=== PATIENT | female | born 1955 | race Two or more races ===

== ENCOUNTER 2018-06-03 09:19 | Emergency (ER) | payer BC, MEDICAID ==
[2018-06-03] MEDS ORDERED: KETOROLAC TROMETH 60MG/2ML VIAL IM ONE (09:45)
[2018-06-03] MEDS ORDERED: KETOROLAC TROMETH 30 MG/ML 1ML VIAL IV ONE (10:00)
[2018-06-03] MEDS ORDERED: MORPHINE SULFATE 4 MG/ML SYR/VIAL IV ONE (10:45)
[2018-06-03] MEDS ORDERED: ONDANSETRON HCL 4 MG/2 ML VIAL IV ONE (10:45)
[2018-06-03 11:42] VITALS: BP 126/78
[2018-06-03] MEDS ORDERED: traMADol HCL 50 MG TAB PO ONE (12:30)
== END 2018-06-03 13:07 | disposition home or self-care (01) ==
LOC: ER 09:19
DX: S62.101A Fracture of unspecified carpal bone, right wrist, initial encounter for closed fracture (principal); R51 Headache; E11.9 Type 2 diabetes mellitus without complications; M25.521 Pain in right elbow; M25.551 Pain in right hip; M25.511 Pain in right shoulder; Z90.710 Acquired absence of both cervix and uterus; W19.XXXA Unspecified fall, initial encounter; Y93.01 Activity, walking, marching and hiking; Y92.89 Other specified places as the place of occurrence of the external cause; Y99.8 Other external cause status
CPT/HCPCS: 29125; 70450; 73030; 73070; 73100; 73120; 96374; 96375; 99284; J1885; J2270; J2405

== ENCOUNTER 2018-06-04 17:14 | Emergency (ER) | payer BC, MEDICAID ==
[~2018-06-04] VITALS: Ht 157.5 cm; Wt 72.6 kg
[2018-06-04 17:27] VITALS: BP 148/86
[2018-06-04] MEDS ORDERED: ALUM & MAG HYDROX-SIMETH LIQ(MAALOX) 30 ML PO ONE (21:15)
[2018-06-04] MEDS ORDERED: LIDOCAINE VISCOUS 2% 15ML UD PO ONE (21:15)
[2018-06-04] MEDS ORDERED: traMADol HCL 50 MG TAB PO ONE (21:15)
[2018-06-04] MEDS ORDERED: DONNATAL 5ml ORAL Elix (BELLADONNA ALK-PHENOBARB) PO ONE (21:15)
== END 2018-06-04 22:10 | disposition home or self-care (01) ==
LOC: ER 17:14
DX: M79.601 Pain in right arm (principal); E11.9 Type 2 diabetes mellitus without complications; Z90.710 Acquired absence of both cervix and uterus; Z88.0 Allergy status to penicillin; Z88.6 Allergy status to analgesic agent; W19.XXXA Unspecified fall, initial encounter; Y93.K1 Activity, walking an animal; Y92.89 Other specified places as the place of occurrence of the external cause; Y99.8 Other external cause status

== ENCOUNTER 2018-07-26 17:30 | Emergency (ER) | payer BC, MEDICAID ==
[~2018-07-26] VITALS: Ht 157.5 cm; Wt 77.1 kg
[2018-07-26 20:15] VITALS: BP 135/69
[2018-07-26] MEDS ORDERED: ONDANSETRON ODT 4 MG TAB PO ONE (20:15)
[2018-07-26] MEDS ORDERED: MEPERIDINE HCL (50 MG/ML) 1 ML VIAL IM ONE (20:15)
[2018-07-26] MEDS ORDERED: cefTRIAXone SOD 1,000 MG VL IM ONE (20:15)
[2018-07-26] MEDS ORDERED: LIDOCAINE 1% HCL (LOCAL ANESTH.) INJ 20ML MDV ONE (20:36)
[2018-07-26 20:58] LABS: Alcohol, Urine < 3.0 mg/dL (0-5); Amphetamine Screen, Urine NEGATIVE (NEGATIVE); Barbiturate Scree,Urine NEGATIVE (NEGATIVE); Benzodiazephine Screen, Urine NEGATIVE (NEGATIVE); Cannabinoid Screen, Urine POSITIVE (NEGATIVE); Cocaine Screen, Urine NEGATIVE (NEGATIVE); Opiate Scree,Urine NEGATIVE (NEGATIVE); Phencyclidine Screen, Urine NEGATIVE (NEGATIVE)
[2018-07-26] MEDS ORDERED: LORazepam 0.5 MG TAB PO ONE (21:30)
[2018-07-26] MEDS ORDERED: SULFAMETHOX W/TRIMETH(800/160MG) DS TAB PO ONE (23:00)
[2018-07-26] MEDS ORDERED: CEPHALEXIN 250 MG CAP PO ONE (23:00)
== END 2018-07-26 23:34 | disposition home or self-care (01) ==
LOC: ER 17:30
DX: S52.121A Displaced fracture of head of right radius, initial encounter for closed fracture (principal); M21.961 Unspecified acquired deformity of right lower leg; M25.421 Effusion, right elbow; E11.9 Type 2 diabetes mellitus without complications; Z88.5 Allergy status to narcotic agent; Z88.8 Allergy status to other drugs, medicaments and biological substances; Z88.0 Allergy status to penicillin; Z90.710 Acquired absence of both cervix and uterus; W01.0XXA Fall on same level from slipping, tripping and stumbling without subsequent striking against object, initial encounter; Y93.89 Activity, other specified; Y99.8 Other external cause status; Y92.89 Other specified places as the place of occurrence of the external cause
CPT/HCPCS: 29105; 29515; 73090; 73200; 73610; 80307; 82962; 96372; 99284; J0696; J2001; J2175; Q0162

== ENCOUNTER 2019-06-27 15:54 | Emergency (ER) | payer MEDICARE, MEDICAID ==
[~2019-06-27] VITALS: Ht 157.5 cm; Wt 81.6 kg
[2019-06-27] MEDS ORDERED: SODIUM CHLORIDE 0.9% 1,000 ML IV ONE ×2 (16:27)
[2019-06-27 16:48] LABS: Basophils # (auto) 0.1 uL; Basophils % (auto) 1.4 % (0.0-2.0); Eosinophils # (auto) 0 uL; Eosinophils % (auto) 0.1 % (0.0-7.0); Hematocrit 46.2 % (36.0-46.0); Hemoglobin 15.5 g/dL (12.2-16.2); Lymphocytes % (auto) 10.1 % (10.0-50.0); Mean Corpuscular Hemoglobin 28.3 pg (28.0-32.0); Mean Corpuscular Hgb Conc. 33.6 g/dL (32.0-36.0); Mean Corpuscular Volume 84.1 fL (80.0-100.0); Monocytes # (auto) 0.6 uL; Monocytes % (auto) 5.6 % (0.0-12.0); Neutrophils # (auto) 8.4 uL; Neutrophils % (auto) 82.8 % (37.0-80.0); Nucleated Red Blood Cells % 0.1 %; Platelet Count (auto) 244 10^3/uL (140-450); Red Blood Cells 5.49 10^6/uL (4.0-5.20); Red Cell Distribution Width 14.7 % (11.8-14.3); White Blood Cell 10.2 10^3/uL (4.4-10.8)
[2019-06-27 17:01] LABS: Albumin 3.9 g/dL (3.4-5.0); BUN/Creatinine Ratio 17.4; Calcium 8.6 mg/dL (8.5-10.1)
[2019-06-27 17:02] LABS: Bilirubin, Total 0.3 mg/dL (0.2-1.0); Total Protein 7.5 g/dL (6.4-8.2)
[2019-06-27] MEDS ORDERED: InsuLIN REG 1unit/0.01ml Soln (100units/ml) IV ONE (17:45)
[2019-06-27 18:26] VITALS: BP 146/81
[2019-06-27] MEDS ORDERED: IBUPROFEN 800 MG TAB PO ONE (18:45)
[2019-06-27] MEDS ORDERED: KETOROLAC TROMETH 30 MG/ML 1ML VIAL IV ONE (19:30)
== END 2019-06-27 19:50 | disposition home or self-care (01) ==
LOC: ER 15:54
DX: E11.65 Type 2 diabetes mellitus with hyperglycemia (principal); M32.9 Systemic lupus erythematosus, unspecified; Z88.5 Allergy status to narcotic agent; Z88.0 Allergy status to penicillin; Z88.8 Allergy status to other drugs, medicaments and biological substances
CPT/HCPCS: 36415; 71046; 80053; 82962; 84484; 85025; 96361; 96374; 96375; 99284; J1815; J1885; J7030

== ENCOUNTER 2019-08-25 19:51 | Emergency (ER) | payer MEDICARE, MEDICAID ==
[~2019-08-25] VITALS: Ht 157.5 cm; Wt 81.6 kg
[2019-08-25 19:56] VITALS: BP 134/71
[2019-08-25] MEDS ORDERED: ACETAMINOPHEN 325 MG TAB PO ONE (20:30)
[2019-08-25 21:22] LABS: Basophils # (auto) 0 10 ^3/uL (0-0.2); Basophils % (auto) 0.5 % (0.0-2.0); Eosinophils # (auto) 0 10 ^3/uL (0-0.8); Eosinophils % (auto) 0.1 % (0.0-7.0); Hematocrit 41.2 % (36.0-46.0); Hemoglobin 14.4 g/dL (12.2-16.2); Lymphocytes # (auto) 0.7 10 ^3/uL (0.4-5.4); Lymphocytes % (auto) 9.5 % (10.0-50.0); Mean Corpuscular Hemoglobin 28.6 pg (28.0-32.0); Mean Corpuscular Hgb Conc. 34.9 g/dL (32.0-36.0); Monocytes # (auto) 0.4 10 ^3/uL (0-1.3); Monocytes % (auto) 5.7 % (0.0-12.0); Neutrophils # (auto) 6.5 10 ^3/uL (1.6-8.6); Neutrophils % (auto) 84.2 % (37.0-80.0); Platelet Count (auto) 251 10^3/uL (140-450); Red Blood Cells 5.02 10^6/uL (4.0-5.20); Red Cell Distribution Width 14.6 % (11.8-14.3); White Blood Cell 7.7 10^3/uL (4.4-10.8)
[2019-08-25 21:27] LABS: Urine Blood Negative /uL (Negative); Urine Hyaline Cast FEW /lpf (0 - 2); Urine Mucus FEW (None Seen); Urine Specific Gravity 1.041 (1.001-1.035); Urine WBC 4 /hpf (0 - 5)
[2019-08-25 21:34] LABS: Urine Bacteria MOD /hpf (None Seen)
[2019-08-25 21:39] LABS: Albumin 3.6 g/dL (3.4-5.0); Calcium 8.3 mg/dL (8.5-10.1); Potassium 4.4 mmol/L (3.5-5.1)
[2019-08-25 21:42] LABS: BUN/Creatinine Ratio 14.4; Bilirubin, Total 0.2 mg/dL (0.2-1.0); Total Protein 6.8 g/dL (6.4-8.2)
== END 2019-08-25 22:36 | disposition left against medical advice (07) ==
LOC: ER 19:55
DX: L93.0 Discoid lupus erythematosus (principal); Z53.21 Procedure and treatment not carried out due to patient leaving prior to being seen by health care provider
CPT/HCPCS: 36415; 80053; 81001; 82962; 85025

== ENCOUNTER 2020-05-24 11:13 | Inpatient (IN) | payer MEDICARE, MEDICAID ==
[~2020-05-24] VITALS: Ht 157.5 cm; Wt 82.2 kg
[2020-05-24] MEDS ORDERED: SODIUM CHLORIDE 0.9% 1,000 ML IVB ONE (12:45)
[2020-05-24] MEDS ORDERED: cefTRIAXone 1GM/50ML D5W 50 ML IV ONE (12:45)
[2020-05-24 13:14] LABS: Basophils # (auto) 0.1 10 ^3/uL (0-0.2); Basophils % (auto) 0.8 % (0.0-2.0); Eosinophils # (auto) 0.1 10 ^3/uL (0-0.8); Eosinophils % (auto) 1.2 % (0.0-7.0); Hematocrit 46.4 % (36.0-46.0); Hemoglobin 15.7 g/dL (12.2-16.2); Lymphocytes # (auto) 1.5 10 ^3/uL (0.4-5.4); Lymphocytes % (auto) 15.2 % (10.0-50.0); Mean Corpuscular Hemoglobin 28.5 pg (28.0-32.0); Mean Corpuscular Hgb Conc. 33.8 g/dL (32.0-36.0); Mean Corpuscular Volume 84.2 fL (80.0-100.0); Monocytes # (auto) 0.9 10 ^3/uL (0-1.3); Neutrophils % (auto) 73.8 % (37.0-80.0); Platelet Count (auto) 218 10^3/uL (140-450); White Blood Cell 9.6 10^3/uL (4.4-10.8)
[2020-05-24] MEDS ORDERED: TETANUS-DIPTH-ACEL PERTUSSIS 0.5ML SYR Tdap IM ONE (13:15)
[2020-05-24 13:30] LABS: INR 0.94 (0.9-1.15); Partial Thromboplastin Time 26.5 sec (23.0-31.2)
[2020-05-24 13:32] LABS: Albumin 3.5 g/dL (3.4-5.0); BUN/Creatinine Ratio 26.5; Calcium 8.4 mg/dL (8.5-10.1); Potassium 3.8 mmol/L (3.5-5.1)
[2020-05-24 13:34] LABS: Bilirubin, Total 0.2 mg/dL (0.2-1.0); Total Protein 6.7 g/dL (6.4-8.2)
[2020-05-24] MEDS ORDERED: DEXTROSE (50%) 50ML SYRG IV PRN (14:45)
[2020-05-24] MEDS ORDERED: LACTULOSE 20Gm/30ML SOLN PO PRN (14:45)
[2020-05-24] MEDS ORDERED: ACETAMINOPHEN 500 MG TAB PO PRN (14:45)
[2020-05-24] MEDS ORDERED: levoFLOXacin 500MG 100 ML IV ONE (14:45)
[2020-05-24] MEDS ORDERED: VANCOMYCIN 1GM/250ML 250 ML IV ONE (14:45)
[2020-05-24] MEDS ORDERED: ALBUTEROL SULF 2.5 MG/0.5ML(0.5%) NEB SOLN NEB PRN (14:45)
[2020-05-24] MEDS ORDERED: VANCOMYCIN PER PHARMACY 0 MG IV SCH (14:45)
[2020-05-24] MEDS: SODIUM CHLORIDE 0.9% 1,000 ML IV SCH (14:57)
[2020-05-24] MEDS: InsuLIN REG 1unit/0.01ml Soln (100units/ml) SC SCH ×2 (17:00→22:21)
[2020-05-24] MEDS: ALBUTEROL SULF 2.5 MG/0.5ML(0.5%) NEB SOLN NEB SCH (18:00)
[2020-05-24] MEDS: IPRATROPIUM BROM 0.5 MG/2.5ML INH SOL NEB SCH (18:00)
[2020-05-24] MEDS: MORPHINE SULFATE 4 MG/ML SYR/VIAL IV PRN ×2 (18:05→22:24)
[2020-05-24] MEDS: ACCU-CHEK COMFORT CURVE STRIP VI SCH ×2 (18:05→22:12)
[2020-05-24] MEDS: VANCOMYCIN 1GM/250ML 250 ML IV SCH (18:51)
[2020-05-25] MEDS ORDERED: ONDANSETRON ODT 4 MG TAB PO ONE (00:15)
--- NOTE | 2020-05-25 03:08 | NUR ---
MS admit from ER VIVIANASHEA admitted to tele/MS after SBAR received. Patient oriented to LAZARA HARRIS RN primary RN, unit, room, bed, and unit policies regarding patient care and visiting hours. Patient weighed by bedscale and encouraged to call if they need something. All questions and concerns addressed, patient verbalized understanding. Note:
[2020-05-25] MEDS: MORPHINE SULFATE 4 MG/ML SYR/VIAL IV PRN ×4 (03:42→22:01)
--- NOTE | 2020-05-25 05:03 | NUR ---
Alfonso hospitalist patient is complaining of tight chest pain. 01/26 for pain score. EKG taken and vital signs are bp 140/77, hr 58, 94 % on RA, Temp. 98.5. waiting for call back.
[2020-05-25] MEDS ORDERED: NITROGLYCERIN 0.4 MG SL TAB SL PRN (05:30)
[2020-05-25] MEDS ORDERED: MORPHINE SULFATE 4 MG/ML SYR/VIAL IV PRN (05:30)
--- NOTE | 2020-05-25 05:30 | NUR ---
IV removal IV DC'd with clean sterile technique, catheter fully intact. Pressure dressing applied to site. Patient tolerated well. NOTE:
[2020-05-25] MEDS: SODIUM CHLORIDE 0.9% 1,000 ML IV SCH ×3 (05:34→20:45)
--- NOTE | 2020-05-25 05:36 | NUR ---
obtained an Chest pain protocol order from hospitalist. placed patient on tele box number [id number].
--- NOTE | 2020-05-25 05:38 | NUR ---
IV insertion IV access obtained, via clean sterile technique by inserting gauge catheter at 22g left forearm after attempt(s). IV secured properly. No trauma to site. Patient tolerated well. NOTE:
[2020-05-25] MEDS ORDERED: PHE100C PO (06:06)
[2020-05-25] MEDS: VANCOMYCIN 1GM/250ML 250 ML IV SCH ×2 (06:28→17:06)
[2020-05-25] MEDS: InsuLIN REG 1unit/0.01ml Soln (100units/ml) SC SCH ×4 (06:29→22:02)
[2020-05-25] MEDS: ACCU-CHEK COMFORT CURVE STRIP VI SCH ×4 (06:29→22:01)
[2020-05-25] MEDS: ALBUTEROL SULF 2.5 MG/0.5ML(0.5%) NEB SOLN NEB SCH ×5 (06:58→23:26)
[2020-05-25] MEDS: IPRATROPIUM BROM 0.5 MG/2.5ML INH SOL NEB SCH ×5 (06:58→23:26)
--- NOTE | 2020-05-25 07:06 | NUR ---
mrsa swab sent to lab
--- NOTE | 2020-05-25 08:15 | NUR ---
Opening Shift Note Assumed care of patient, awake and alert. No S/S of distress/SOB or pain. Instructed on POC and to call for assist PRN. Bed in lowest locked position, call light within reach, side rails up x2, bed alarm on. Will continue to monitor for changes Q1hr and PRN.
[2020-05-25] MEDS: levoFLOXacin 500MG 100 ML IV SCH (08:44)
[2020-05-25 08:54] LABS: Basophils # (auto) 0 10 ^3/uL (0-0.2); Basophils % (auto) 0.6 % (0.0-2.0); Eosinophils # (auto) 0.1 10 ^3/uL (0-0.8); Eosinophils % (auto) 1.3 % (0.0-7.0); Hematocrit 43.1 % (36.0-46.0); Hemoglobin 14.1 g/dL (12.2-16.2); Lymphocytes # (auto) 1.1 10 ^3/uL (0.4-5.4); Lymphocytes % (auto) 16.7 % (10.0-50.0); Mean Corpuscular Hemoglobin 28.1 pg (28.0-32.0); Mean Corpuscular Hgb Conc. 32.8 g/dL (32.0-36.0); Mean Corpuscular Volume 85.6 fL (80.0-100.0); Monocytes # (auto) 0.7 10 ^3/uL (0-1.3); Monocytes % (auto) 10.4 % (0.0-12.0); Neutrophils # (auto) 4.6 10 ^3/uL (1.6-8.6); Nucleated Red Blood Cells % 0.1 %; Platelet Count (auto) 186 10^3/uL (140-450); Red Blood Cells 5.03 10^6/uL (4.0-5.20); Red Cell Distribution Width 14.8 % (11.8-14.3); White Blood Cell 6.5 10^3/uL (4.4-10.8)
[2020-05-25 09:00] VITALS: BP 140/71
[2020-05-25 09:12] LABS: Calcium 7.8 mg/dL (8.5-10.1); Potassium 3.7 mmol/L (3.5-5.1)
--- NOTE | 2020-05-25 12:00 | NUR ---
RECEIVED REPORT FROM MANJULA RN, PATIENT ALERT AND ORIENTED X4, NOT IN DISTRESS, CLEAR LS IN BILATERAL LUNG LOBES, RR=18, DEEP BREATHING AND BREATHING WAS ENCOURAGED, DEMONSTRATED AND VERBALIZED UNDERSTANDING, DENIED CHEST PAIN AND SOB, SR H R=62 ON TELE MONITOR, ABDOMEN SOFT AND ROUND WITH ACTIVE BS, LAST BM TODAY REPORTED, GENERAL SKIN INTACT WARM TO TOUCH, RT. UPPER EXTREMITY WEAKNESS WITH NONE PITTING EDEMA AND WRIST WOUND NOTED, RT. ELBOW SCAR AND RT. HEEL SCAB NOTED, RADIAL AND PEDAL PULSES PALPABLE, CAP REFILL <3 SECONDS, HEAD OF BED ELEVATED, BED ON LOW POSITION, RAILS UP X2, CALL LIGHT ON REACH, WILL CONTINUE MONITORING.
[2020-05-25 13:00] VITALS: BP 100/59
[2020-05-25] MEDS: HYDROcodone-ACET 5/325MG TAB PO PRN ×2 (14:05→15:07)
--- NOTE | 2020-05-25 16:00 | NUR ---
INCONTINENT, BSC PROVIDED, TOTAL REANNA CHANGE PROVIDED, AMBULATED TO BR. TOLERATED PARTIAL BODY WASH INDEPENDENTLY, TOLERATED WELL, SITTING ON BED AND SOCIALIZING WITH BED A, WILL CONTINUE MONITORING.
[2020-05-25 17:00] VITALS: BP 124/74
--- NOTE | 2020-05-25 19:22 | NUR ---
TOLERATED 100% OF PROVIDED DINNER TRAY, RESTING ON BED, NOT IN DISTRESS, REPORT WAS GIVEN TO THE SUBWAY OPERATOR RN.
--- NOTE | 2020-05-25 19:57 | NUR ---
Called patient's regarding medication of patient. He said he is going to bring the medication list in the morning. will endorse to AM nurse.
--- NOTE | 2020-05-25 21:32 | NUR ---
NO TX GIVEN AT 1900 DUE TO RT SHORT STAFFED/BUSY WITH CRITICAL PATIENTS. TX GIVEN AT THIS TIME WITHOUT INCIDENCE. NO RESP DISTRESS NOTED.
[2020-05-25 22:00] VITALS: BP 117/65
[2020-05-25] MEDS ORDERED: ONDANSETRON HCL 4 MG/2 ML VIAL IV PRN (22:30)
[2020-05-25] MEDS ORDERED: diphenhdrAMINE HCL 25 MG CAP PO PRN (22:30)
[2020-05-26] MEDS: MORPHINE SULFATE 4 MG/ML SYR/VIAL IV PRN ×2 (04:22→09:09)
[2020-05-26 05:00] VITALS: BP 91/60
--- NOTE | 2020-05-26 05:30 | NUR ---
IV removal IV DC'd with clean sterile technique, catheter fully intact. Pressure dressing applied to site. Patient tolerated well. NOTE:
[2020-05-26] MEDS: VANCOMYCIN 1GM/250ML 250 ML IV SCH (05:45)
--- NOTE | 2020-05-26 05:45 | NUR ---
IV insertion IV access obtained, via clean sterile technique by inserting 22 gauge catheter at left forearm after attempt(s). IV secured properly. No trauma to site. Patient tolerated well. NOTE:
[2020-05-26] MEDS: InsuLIN REG 1unit/0.01ml Soln (100units/ml) SC SCH ×2 (06:14→11:30)
[2020-05-26] MEDS: ACCU-CHEK COMFORT CURVE STRIP VI SCH ×2 (06:14→11:30)
[2020-05-26] MEDS: SODIUM CHLORIDE 0.9% 1,000 ML IV SCH ×2 (06:45→09:30)
[2020-05-26] MEDS: IPRATROPIUM BROM 0.5 MG/2.5ML INH SOL NEB SCH ×2 (07:07→14:14)
[2020-05-26] MEDS: ALBUTEROL SULF 2.5 MG/0.5ML(0.5%) NEB SOLN NEB SCH ×2 (07:07→14:14)
[2020-05-26 08:30] VITALS: BP 126/70
--- NOTE | 2020-05-26 08:30 | NUR ---
Opening Shift Note Received report from steward/stewardess night RN, Assumed care of patient, awake and alert. Nasal cannula set at 2L PRN at bedside, No S/S of distress/SOB. Patient complain of pain 7/10, patient given PRN morphine as ordered. Instructed on POC and to call for assist PRN, will continue to monitor for changes Q1hr and PRN.
[2020-05-26] MEDS: levoFLOXacin 500MG 100 ML IV SCH (09:08)
[2020-05-26 09:15] VITALS: BP 126/70
--- NOTE | 2020-05-26 11:00 | NUR ---
Nutrition Assessment Est energy needs 7969-1285 kcal (20-23 kcal/kg BW 82.2kg) Est protein needs 50-65g (1-1.3g/kg IBW 50kg) Will monitor and reassess prn. Addendum: 05/26/20 at [address] Amended: Links added.
--- NOTE | 2020-05-26 11:30 | NUR ---
MD DALE AT BEDSIDE PATIENT INFORMED OF POC AND DISCHARGE HOME PLAN. PATIENT VERBALIZED UNDERSTANDING.
[2020-05-26 12:30] VITALS: BP 117/80
[2020-05-26 14:24] VITALS: BP 117/80
--- NOTE | 2020-05-26 16:13 | NUR ---
Discharge instructions given as ordered. Encourage to follow up with PMD as instructed. All questions and concerns addressed. Patient verbalized understanding. IV removed with catheter intact, pressure dressing applied. Telemetry unit returned to ICU. Patient taken to vehicle via wheelchair with all personal belongings, accompanied by staff. No distress noted at time of departure.
== END 2020-05-26 16:13 | disposition home or self-care (01) | DRG 603 ==
LOC: ER 11:13 → OVERFLOW 11:14 → WEST WING 05-25 03:08 → TELE-WESTW 05-25 06:34
PROVIDERS: ADMIT Internal Medicine; ATTEND Family Medicine
DX: L03.113 Cellulitis of right upper limb (principal); S61.401A Unspecified open wound of right hand, initial encounter; E11.9 Type 2 diabetes mellitus without complications; I10 Essential (primary) hypertension; M32.9 Systemic lupus erythematosus, unspecified; E78.5 Hyperlipidemia, unspecified; Y79.1 Therapeutic (nonsurgical) and rehabilitative orthopedic devices associated with adverse incidents; Z20.828 Contact with and (suspected) exposure to other viral communicable diseases; S52.124G Nondisplaced fracture of head of right radius, subsequent encounter for closed fracture with delayed healing; Z80.0 Family history of malignant neoplasm of digestive organs; Z86.19 Personal history of other infectious and parasitic diseases; Z90.710 Acquired absence of both cervix and uterus; Z88.0 Allergy status to penicillin; Z88.5 Allergy status to narcotic agent; Z88.8 Allergy status to other drugs, medicaments and biological substances; Z90.49 Acquired absence of other specified parts of digestive tract
CPT/HCPCS: 36415; 71045; 73090; 80048; 80053; 80202; 82962; 83036; 83605; 83735; 85025; 85610; 85652; 85730; 87040; 87081; 87426; 90715; 94640; G0378; J0696; J1815; J1956; J2405; Q0162

== ENCOUNTER → 2020-06-03 | Outpatient (CLI) | payer MEDICARE, MEDICAID ==
[~2020-06-03] MED LIST: PHE100C PO
[2020-06-03 14:36] LABS: Calcium 8.8 mg/dL (8.5-10.1)
[2020-06-03 14:39] LABS: BUN/Creatinine Ratio 9.8
== END | disposition home or self-care (01) ==
LOC: LAB 13:08
PROVIDERS: ATTEND Internal Medicine
DX: E11.9 Type 2 diabetes mellitus without complications (principal); I10 Essential (primary) hypertension; E78.5 Hyperlipidemia, unspecified
CPT/HCPCS: 36415; 80048; 80061; 82043

== ENCOUNTER 2020-06-15 13:45 | Inpatient (IN) | payer MEDICARE, MEDICAID, BC ==
[~2020-06-15] VITALS: Ht 157.5 cm; Wt 70.7 kg
[2020-06-15 17:22] LABS: Basophils # (auto) 0 10 ^3/uL (0-0.2); Basophils % (auto) 0.1 % (0.0-2.0); Eosinophils # (auto) 0 10 ^3/uL (0-0.8); Hematocrit 47.7 % (36.0-46.0); Hemoglobin 16.1 g/dL (12.2-16.2); Lymphocytes # (auto) 0.6 10 ^3/uL (0.4-5.4); Lymphocytes % (auto) 9.5 % (10.0-50.0); Mean Corpuscular Hemoglobin 28.3 pg (28.0-32.0); Mean Corpuscular Hgb Conc. 33.7 g/dL (32.0-36.0); Monocytes # (auto) 0.8 10 ^3/uL (0-1.3); Monocytes % (auto) 13.5 % (0.0-12.0); Neutrophils # (auto) 4.6 10 ^3/uL (1.6-8.6); Neutrophils % (auto) 76.9 % (37.0-80.0); Nucleated Red Blood Cells % 0.1 %; Red Blood Cells 5.68 10^6/uL (4.0-5.20); Red Cell Distribution Width 14.9 % (11.8-14.3)
[2020-06-15 17:26] LABS: Albumin 3.1 g/dL (3.4-5.0); Calcium 8.2 mg/dL (8.5-10.1); Potassium 3.4 mmol/L (3.5-5.1)
[2020-06-15 17:29] LABS: BUN/Creatinine Ratio 19.2; Bilirubin, Total 0.3 mg/dL (0.2-1.0); Total Protein 7.6 g/dL (6.4-8.2)
[2020-06-15] MEDS ORDERED: NITROGLYCERIN 0.4 MG SL TAB SL PRN (21:30)
[2020-06-15] MEDS ORDERED: DEXTROSE (50%) 50ML SYRG IV PRN (21:30)
[2020-06-15] MEDS: DOXYCYCLINE 100MG/250ML 250 ML IV SCH (23:09)
[2020-06-15] MEDS: SODIUM CHLORIDE 0.9% 1,000 ML IV SCH (23:09)
[2020-06-15] MEDS: InsuLIN REG 1unit/0.01ml Soln (100units/ml) SC SCH (23:11)
[2020-06-15] MEDS: ACCU-CHEK COMFORT CURVE STRIP VI SCH (23:11)
[2020-06-15 23:36] LABS: Magnesium 2.1 mg/dL (1.6-2.6)
[2020-06-16] MEDS: ACETAMINOPHEN 500 MG TAB PO PRN (00:02)
[2020-06-16] MEDS: ONDANSETRON HCL 4 MG/2 ML VIAL IV PRN ×4 (01:15→22:54)
[2020-06-16] MEDS: TEMAZEPAM 15 MG CAP PO PRN (04:03)
[2020-06-16] MEDS: InsuLIN REG 1unit/0.01ml Soln (100units/ml) SC SCH ×4 (07:00→22:50)
[2020-06-16] MEDS: ACCU-CHEK COMFORT CURVE STRIP VI SCH ×4 (07:02→22:45)
[2020-06-16 08:32] LABS: Basophils # (auto) 0 10 ^3/uL (0-0.2); Basophils % (auto) 0.3 % (0.0-2.0); Eosinophils # (auto) 0 10 ^3/uL (0-0.8); Eosinophils % (auto) 0.1 % (0.0-7.0); Hematocrit 42.9 % (36.0-46.0); Hemoglobin 15.1 g/dL (12.2-16.2); Lymphocytes # (auto) 0.7 10 ^3/uL (0.4-5.4); Lymphocytes % (auto) 15.9 % (10.0-50.0); Mean Corpuscular Hemoglobin 28.4 pg (28.0-32.0); Mean Corpuscular Hgb Conc. 35.1 g/dL (32.0-36.0); Monocytes # (auto) 0.3 10 ^3/uL (0-1.3); Monocytes % (auto) 7.9 % (0.0-12.0); Neutrophils # (auto) 3.3 10 ^3/uL (1.6-8.6); Neutrophils % (auto) 75.8 % (37.0-80.0); Nucleated Red Blood Cells % 0.2 %; Red Cell Distribution Width 15.4 % (11.8-14.3); White Blood Cell 4.3 10^3/uL (4.4-10.8)
[2020-06-16 08:41] LABS: Albumin 2.5 g/dL (3.4-5.0); Calcium 7.2 mg/dL (8.5-10.1); Potassium 3.4 mmol/L (3.5-5.1)
[2020-06-16 08:44] LABS: BUN/Creatinine Ratio 24.6; Bilirubin, Total 0.4 mg/dL (0.2-1.0); Total Protein 6.6 g/dL (6.4-8.2)
[2020-06-16] MEDS: DOXYCYCLINE 100MG/250ML 250 ML IV SCH ×2 (09:36→22:53)
[2020-06-16] MEDS: DexAMETHasone SOD PHOS 10MG/1ML VIAL INJ IV SCH (09:36)
[2020-06-16] MEDS: ENOXAPARIN SOD 40 MG/0.4 ML SYRINGE SC SCH (09:37)
[2020-06-16] MEDS: SODIUM CHLORIDE 0.9% 1,000 ML IV SCH ×2 (09:37→15:33)
[2020-06-16] MEDS: CHOLECALCIFEROL (VITD3) 2,000 UNIT CAP/TAB PO SCH (09:37)
[2020-06-16] MEDS: ZINC SULFATE 220mg CAP or TAB PO SCH (09:37)
[2020-06-16] MEDS: PANTOPRAZOLE 40 MG TAB PO SCH (09:37)
[2020-06-16] MEDS: MORPHINE SULFATE INJECTION 2 MG/ML SYRG IV PRN ×2 (11:50→22:54)
[2020-06-16] MEDS ORDERED: REMDESIVIR PER PHARMACY 0 ML IV SCH (13:30)
[2020-06-16] MEDS ORDERED: POTASSIUM EFFERVESENT TAB 25 MEQ PO ONE (13:30)
[2020-06-16] MEDS ORDERED: REMDESIVIR 200 MG in NS 210ml LOADING DOSE ADULT IV ONE (17:00)
[2020-06-16] MEDS: GABAPENTIN 100 MG CAP PO SCH (22:54)
[2020-06-17] MEDS: guaiFENesin-DM 100/10mg/5ml SYR PO PRN ×3 (01:21→21:59)
[2020-06-17] MEDS: TEMAZEPAM 15 MG CAP PO PRN (01:59)
[2020-06-17] MEDS: ACETAMINOPHEN 500 MG TAB PO PRN (03:15)
[2020-06-17] MEDS: SODIUM CHLORIDE 0.9% 1,000 ML IV SCH (03:44)
[2020-06-17] MEDS ORDERED: PRED10TA PO (04:52)
[2020-06-17] MEDS ORDERED: LISI2.5T47 PO (04:54)
[2020-06-17] MEDS ORDERED: LORA1TAB23 PO (04:54)
[2020-06-17] MEDS ORDERED: GABA100C9 PO (04:54)
[2020-06-17] MEDS ORDERED: ALBUAER3 IN (04:54)
[2020-06-17] MEDS: GABAPENTIN 100 MG CAP PO SCH ×3 (06:00→22:00)
[2020-06-17] MEDS: ACCU-CHEK COMFORT CURVE STRIP VI SCH ×4 (06:43→22:02)
[2020-06-17] MEDS: InsuLIN REG 1unit/0.01ml Soln (100units/ml) SC SCH ×3 (06:43→17:00)
[2020-06-17] MEDS: traMADol HCL 50 MG TAB PO PRN ×2 (06:44→16:21)
[2020-06-17] MEDS: PANTOPRAZOLE 40 MG TAB PO SCH (10:48)
[2020-06-17] MEDS: PHENYTOIN SODIUM 100 MG CAP PO SCH (10:48)
[2020-06-17] MEDS: CHOLECALCIFEROL (VITD3) 2,000 UNIT CAP/TAB PO SCH (10:48)
[2020-06-17] MEDS: DexAMETHasone SOD PHOS 10MG/1ML VIAL INJ IV SCH (10:48)
[2020-06-17] MEDS: cefTRIAXone 1GM/50ML D5W 50 ML IV SCH (10:49)
[2020-06-17] MEDS: ZINC SULFATE 220mg CAP or TAB PO SCH (10:49)
[2020-06-17] MEDS: ENOXAPARIN SOD 40 MG/0.4 ML SYRINGE SC SCH (10:50)
[2020-06-17] MEDS: DOXYCYCLINE 100MG/250ML 250 ML IV SCH ×2 (11:19→22:02)
[2020-06-17] MEDS: REMDESIVIR 100 MG in SODIUM CHL 0.9% 250 ML IV SCH (16:20)
[2020-06-17 17:00] VITALS: BP 107/68
[2020-06-18] VITALS: BP 127/70
[2020-06-18] MEDS: InsuLIN REG 1unit/0.01ml Soln (100units/ml) SC SCH ×5 (00:16→21:38)
[2020-06-18] MEDS: traMADol HCL 50 MG TAB PO PRN ×2 (04:56→20:14)
[2020-06-18] MEDS: ACCU-CHEK COMFORT CURVE STRIP VI SCH ×4 (06:26→21:31)
[2020-06-18] MEDS: GABAPENTIN 100 MG CAP PO SCH ×3 (06:42→21:32)
[2020-06-18 08:00] VITALS: BP 141/74
[2020-06-18] MEDS: cefTRIAXone 1GM/50ML D5W 50 ML IV SCH (09:00)
[2020-06-18 09:31] LABS: Albumin 2.5 g/dL (3.4-5.0); Calcium 7.4 mg/dL (8.5-10.1)
[2020-06-18 09:34] LABS: BUN/Creatinine Ratio 34.2; Bilirubin, Total 0.4 mg/dL (0.2-1.0); Total Protein 6.8 g/dL (6.4-8.2)
[2020-06-18] MEDS: ENOXAPARIN SOD 40 MG/0.4 ML SYRINGE SC SCH (09:37)
[2020-06-18] MEDS: ONDANSETRON HCL 4 MG/2 ML VIAL IV PRN ×3 (09:38→20:14)
[2020-06-18] MEDS: PHENYTOIN SODIUM 100 MG CAP PO SCH (09:38)
[2020-06-18] MEDS: PANTOPRAZOLE 40 MG TAB PO SCH (09:38)
[2020-06-18] MEDS: DexAMETHasone SOD PHOS 10MG/1ML VIAL INJ IV SCH (09:38)
[2020-06-18] MEDS: DOXYCYCLINE 100MG/250ML 250 ML IV SCH ×2 (09:38→21:32)
[2020-06-18] MEDS: ACETAMINOPHEN 500 MG TAB PO PRN (09:38)
[2020-06-18] MEDS: ZINC SULFATE 220mg CAP or TAB PO SCH (09:38)
[2020-06-18] MEDS: CHOLECALCIFEROL (VITD3) 2,000 UNIT CAP/TAB PO SCH (09:39)
[2020-06-18 09:43] LABS: Basophils # (auto) 0 10 ^3/uL (0-0.2); Basophils % (auto) 0.3 % (0.0-2.0); Eosinophils # (auto) 0 10 ^3/uL (0-0.8); Hematocrit 45.9 % (36.0-46.0); Hemoglobin 16.1 g/dL (12.2-16.2); Lymphocytes # (auto) 0.7 10 ^3/uL (0.4-5.4); Lymphocytes % (auto) 11.2 % (10.0-50.0); Mean Corpuscular Hemoglobin 28.1 pg (28.0-32.0); Mean Corpuscular Hgb Conc. 35.2 g/dL (32.0-36.0); Mean Corpuscular Volume 79.8 fL (80.0-100.0); Monocytes # (auto) 0.6 10 ^3/uL (0-1.3); Monocytes % (auto) 10.6 % (0.0-12.0); Neutrophils # (auto) 4.7 10 ^3/uL (1.6-8.6); Neutrophils % (auto) 77.9 % (37.0-80.0); Nucleated Red Blood Cells % 0.5 %; Red Blood Cells 5.74 10^6/uL (4.0-5.20)
[2020-06-18 12:17] LABS: INR 1.1 (0.9-1.15); Partial Thromboplastin Time 35.8 sec (23.0-31.2)
[2020-06-18 16:00] VITALS: BP 133/67
[2020-06-18] MEDS: REMDESIVIR 100 MG in SODIUM CHL 0.9% 250 ML IV SCH (17:00)
[2020-06-18] MEDS: TEMAZEPAM 15 MG CAP PO PRN (21:32)
[2020-06-18] MEDS: guaiFENesin-DM 100/10mg/5ml SYR PO PRN (23:34)
[2020-06-19] VITALS: BP 131/70
[2020-06-19] MEDS: MORPHINE SULFATE INJECTION 2 MG/ML SYRG IV PRN ×4 (01:57→20:16)
[2020-06-19] MEDS: ONDANSETRON HCL 4 MG/2 ML VIAL IV PRN ×4 (01:57→20:16)
[2020-06-19] MEDS: GABAPENTIN 100 MG CAP PO SCH ×3 (05:54→21:05)
[2020-06-19] MEDS: ACCU-CHEK COMFORT CURVE STRIP VI SCH ×4 (06:10→21:05)
[2020-06-19] MEDS: InsuLIN REG 1unit/0.01ml Soln (100units/ml) SC SCH ×4 (06:10→21:34)
[2020-06-19 08:00] VITALS: BP 142/68
[2020-06-19] MEDS: cefTRIAXone 1GM/50ML D5W 50 ML IV SCH (10:18)
[2020-06-19] MEDS: ZINC SULFATE 220mg CAP or TAB PO SCH (10:19)
[2020-06-19] MEDS: DexAMETHasone SOD PHOS 10MG/1ML VIAL INJ IV SCH (10:19)
[2020-06-19] MEDS: DOXYCYCLINE 100MG/250ML 250 ML IV SCH ×2 (10:19→21:04)
[2020-06-19] MEDS: PHENYTOIN SODIUM 100 MG CAP PO SCH (10:19)
[2020-06-19] MEDS: PANTOPRAZOLE 40 MG TAB PO SCH (10:20)
[2020-06-19] MEDS: CHOLECALCIFEROL (VITD3) 2,000 UNIT CAP/TAB PO SCH (10:20)
[2020-06-19] MEDS: ENOXAPARIN SOD 40 MG/0.4 ML SYRINGE SC SCH (10:20)
[2020-06-19] MEDS: traMADol HCL 50 MG TAB PO PRN (10:37)
[2020-06-19 14:40] LABS: Basophils # (auto) 0 10 ^3/uL (0-0.2); Basophils % (auto) 0.1 % (0.0-2.0); Eosinophils # (auto) 0 10 ^3/uL (0-0.8); Hematocrit 46.5 % (36.0-46.0); Hemoglobin 15.9 g/dL (12.2-16.2); Lymphocytes # (auto) 0.3 10 ^3/uL (0.4-5.4); Lymphocytes % (auto) 3.5 % (10.0-50.0); Mean Corpuscular Hemoglobin 27.8 pg (28.0-32.0); Mean Corpuscular Hgb Conc. 34.3 g/dL (32.0-36.0); Mean Corpuscular Volume 81.2 fL (80.0-100.0); Monocytes # (auto) 0.9 10 ^3/uL (0-1.3); Monocytes % (auto) 9.6 % (0.0-12.0); Neutrophils # (auto) 7.7 10 ^3/uL (1.6-8.6); Neutrophils % (auto) 86.8 % (37.0-80.0); Nucleated Red Blood Cells % 0.1 %; Red Blood Cells 5.73 10^6/uL (4.0-5.20); Red Cell Distribution Width 14.9 % (11.8-14.3); White Blood Cell 8.9 10^3/uL (4.4-10.8)
[2020-06-19 14:57] LABS: Albumin 2.6 g/dL (3.4-5.0); Calcium 7.5 mg/dL (8.5-10.1); Potassium 3.9 mmol/L (3.5-5.1)
[2020-06-19 15:01] LABS: BUN/Creatinine Ratio 22.4; Bilirubin, Total 0.4 mg/dL (0.2-1.0); Total Protein 7.1 g/dL (6.4-8.2)
[2020-06-19 16:00] VITALS: BP 135/78
[2020-06-19] MEDS: ALBUTEROL SULF HFA 90MCG INH 200DOSE IN PRN ×2 (16:06→20:47)
[2020-06-19] MEDS: REMDESIVIR 100 MG in SODIUM CHL 0.9% 250 ML IV SCH (16:15)
[2020-06-19] MEDS ORDERED: SODIUM CHLORIDE 0.9% 1,000 ML IV SCH (17:30)
[2020-06-19] MEDS ORDERED: FUROSEMIDE 20 MG/2 ML VIAL IV ONE (17:30)
[2020-06-19] MEDS: ATORVASTATIN 20 MG TAB PO SCH (21:05)
[2020-06-19] MEDS: TEMAZEPAM 15 MG CAP PO PRN (21:35)
[2020-06-20] VITALS: BP 130/62
[2020-06-20] MEDS: ONDANSETRON HCL 4 MG/2 ML VIAL IV PRN ×5 (02:39→19:34)
[2020-06-20] MEDS: MORPHINE SULFATE INJECTION 2 MG/ML SYRG IV PRN ×5 (02:39→19:33)
[2020-06-20] MEDS: traMADol HCL 50 MG TAB PO PRN (04:02)
[2020-06-20] MEDS: GABAPENTIN 100 MG CAP PO SCH ×3 (06:09→22:11)
[2020-06-20] MEDS: FUROSEMIDE 20 MG/2 ML VIAL IV SCH ×2 (06:09→18:49)
[2020-06-20] MEDS: ACCU-CHEK COMFORT CURVE STRIP VI SCH ×4 (06:09→22:12)
[2020-06-20] MEDS: InsuLIN REG 1unit/0.01ml Soln (100units/ml) SC SCH ×4 (06:10→22:16)
[2020-06-20 08:00] VITALS: BP 148/75
[2020-06-20 08:41] LABS: Albumin 2.5 g/dL (3.4-5.0); BUN/Creatinine Ratio 23.6; Calcium 7.8 mg/dL (8.5-10.1); Potassium 3.5 mmol/L (3.5-5.1)
[2020-06-20 08:44] LABS: Bilirubin, Total 0.5 mg/dL (0.2-1.0); Total Protein 6.9 g/dL (6.4-8.2)
[2020-06-20] MEDS: cefTRIAXone 1GM/50ML D5W 50 ML IV SCH (09:54)
[2020-06-20] MEDS: ASPirin 81 mg TAB PO SCH (09:54)
[2020-06-20] MEDS: ZINC SULFATE 220mg CAP or TAB PO SCH (10:07)
[2020-06-20] MEDS: POTASSIUM CHL 10 Meq TABLET PO SCH (10:07)
[2020-06-20] MEDS: PANTOPRAZOLE 40 MG TAB PO SCH (10:07)
[2020-06-20] MEDS: PHENYTOIN SODIUM 100 MG CAP PO SCH (10:07)
[2020-06-20] MEDS: CHOLECALCIFEROL (VITD3) 2,000 UNIT CAP/TAB PO SCH (10:08)
[2020-06-20] MEDS: ENOXAPARIN SOD 40 MG/0.4 ML SYRINGE SC SCH (10:08)
[2020-06-20] MEDS: DOXYCYCLINE 100MG/250ML 250 ML IV SCH (11:03)
[2020-06-20] MEDS: DexAMETHasone SOD PHOS 10MG/1ML VIAL INJ IV SCH (11:03)
[2020-06-20] MEDS: REMDESIVIR 100 MG in SODIUM CHL 0.9% 250 ML IV SCH (15:32)
[2020-06-20 16:15] VITALS: BP 132/74
[2020-06-20] MEDS: guaiFENesin-DM 100/10mg/5ml SYR PO PRN (16:33)
[2020-06-20] MEDS: ATORVASTATIN 20 MG TAB PO SCH (22:11)
[2020-06-20] MEDS: TEMAZEPAM 15 MG CAP PO PRN (22:12)
[2020-06-21] VITALS: BP 129/61
[2020-06-21] MEDS: ONDANSETRON HCL 4 MG/2 ML VIAL IV PRN ×6 (02:32→23:40)
[2020-06-21] MEDS: MORPHINE SULFATE INJECTION 2 MG/ML SYRG IV PRN ×6 (02:32→23:40)
[2020-06-21] MEDS: FUROSEMIDE 20 MG/2 ML VIAL IV SCH ×2 (06:16→18:55)
[2020-06-21] MEDS: InsuLIN REG 1unit/0.01ml Soln (100units/ml) SC SCH ×4 (06:16→21:54)
[2020-06-21] MEDS: GABAPENTIN 100 MG CAP PO SCH ×3 (06:16→21:54)
[2020-06-21] MEDS: ACCU-CHEK COMFORT CURVE STRIP VI SCH ×4 (06:16→22:27)
[2020-06-21] MEDS: guaiFENesin-DM 100/10mg/5ml SYR PO PRN ×2 (06:26→21:55)
[2020-06-21] MEDS: ALBUTEROL SULF HFA 90MCG INH 200DOSE IN PRN (09:03)
[2020-06-21] MEDS: cefTRIAXone 1GM/50ML D5W 50 ML IV SCH (09:55)
[2020-06-21] MEDS: DexAMETHasone SOD PHOS 10MG/1ML VIAL INJ IV SCH (09:56)
[2020-06-21] MEDS: ASPirin 81 mg TAB PO SCH (09:56)
[2020-06-21] MEDS: ZINC SULFATE 220mg CAP or TAB PO SCH (09:56)
[2020-06-21] MEDS: PHENYTOIN SODIUM 100 MG CAP PO SCH (09:56)
[2020-06-21] MEDS: PANTOPRAZOLE 40 MG TAB PO SCH (09:57)
[2020-06-21] MEDS: CHOLECALCIFEROL (VITD3) 2,000 UNIT CAP/TAB PO SCH (09:57)
[2020-06-21] MEDS: POTASSIUM CHL 10 Meq TABLET PO SCH (09:57)
[2020-06-21] MEDS: ENOXAPARIN SOD 40 MG/0.4 ML SYRINGE SC SCH (09:57)
[2020-06-21] MEDS: ATORVASTATIN 20 MG TAB PO SCH (21:54)
[2020-06-21] MEDS: TEMAZEPAM 15 MG CAP PO PRN (21:54)
[2020-06-22] VITALS: BP 116/63
[2020-06-22] MEDS: MORPHINE SULFATE INJECTION 2 MG/ML SYRG IV PRN ×4 (05:12→18:58)
[2020-06-22] MEDS: ONDANSETRON HCL 4 MG/2 ML VIAL IV PRN ×4 (05:13→18:57)
[2020-06-22] MEDS: InsuLIN REG 1unit/0.01ml Soln (100units/ml) SC SCH ×4 (05:38→21:36)
[2020-06-22] MEDS: ACCU-CHEK COMFORT CURVE STRIP VI SCH ×4 (05:39→21:43)
[2020-06-22] MEDS: FUROSEMIDE 20 MG/2 ML VIAL IV SCH ×2 (05:59→17:10)
[2020-06-22] MEDS: GABAPENTIN 100 MG CAP PO SCH ×3 (05:59→21:42)
[2020-06-22] MEDS: ALBUTEROL SULF HFA 90MCG INH 200DOSE IN PRN ×2 (06:17→20:15)
[2020-06-22 08:00] VITALS: BP 147/78
[2020-06-22] MEDS: cefTRIAXone 1GM/50ML D5W 50 ML IV SCH (09:30)
[2020-06-22] MEDS: ASPirin 81 mg TAB PO SCH (09:36)
[2020-06-22] MEDS: ZINC SULFATE 220mg CAP or TAB PO SCH (09:37)
[2020-06-22] MEDS: PHENYTOIN SODIUM 100 MG CAP PO SCH (09:38)
[2020-06-22] MEDS: PANTOPRAZOLE 40 MG TAB PO SCH (09:39)
[2020-06-22] MEDS: POTASSIUM CHL 10 Meq TABLET PO SCH ×2 (09:39→21:42)
[2020-06-22] MEDS: DexAMETHasone SOD PHOS 10MG/1ML VIAL INJ IV SCH (09:42)
[2020-06-22] MEDS: CHOLECALCIFEROL (VITD3) 2,000 UNIT CAP/TAB PO SCH (10:00)
[2020-06-22] MEDS: ENOXAPARIN SOD 40 MG/0.4 ML SYRINGE SC SCH ×2 (10:00→21:43)
[2020-06-22] MEDS: guaiFENesin-DM 100/10mg/5ml SYR PO PRN ×2 (10:00→21:43)
[2020-06-22] MEDS ORDERED: ERGOCALCIFEROL 50,000 UNIT(1.25MG) CAP PO SCH (15:45)
[2020-06-22 16:00] VITALS: BP 145/73
[2020-06-22] MEDS ORDERED: REMDESIVIR PER PHARMACY 0 ML IV SCH (16:00)
[2020-06-22] MEDS ORDERED: REMDESIVIR 200 MG in NS 210ml LOADING DOSE ADULT IV ONE (20:00)
[2020-06-22] MEDS: TEMAZEPAM 15 MG CAP PO PRN (21:44)
[2020-06-23] VITALS: BP 137/69
[2020-06-23] MEDS: MORPHINE SULFATE INJECTION 2 MG/ML SYRG IV PRN (05:25)
[2020-06-23] MEDS: ONDANSETRON HCL 4 MG/2 ML VIAL IV PRN ×4 (05:25→22:00)
[2020-06-23] MEDS: GABAPENTIN 100 MG CAP PO SCH ×3 (05:45→22:00)
[2020-06-23] MEDS: FUROSEMIDE 20 MG/2 ML VIAL IV SCH ×2 (05:45→18:44)
[2020-06-23] MEDS: InsuLIN REG 1unit/0.01ml Soln (100units/ml) SC SCH ×4 (06:57→22:00)
[2020-06-23] MEDS: ACCU-CHEK COMFORT CURVE STRIP VI SCH ×4 (06:57→22:00)
[2020-06-23 08:00] VITALS: BP 134/86
[2020-06-23 08:06] LABS: Basophils # (auto) 0 10 ^3/uL (0-0.2); Basophils % (auto) 0.1 % (0.0-2.0); Eosinophils # (auto) 0 10 ^3/uL (0-0.8); Eosinophils % (auto) 0.2 % (0.0-7.0); Hematocrit 41.2 % (36.0-46.0); Hemoglobin 14.7 g/dL (12.2-16.2); Lymphocytes # (auto) 0.5 10 ^3/uL (0.4-5.4); Lymphocytes % (auto) 6.8 % (10.0-50.0); Mean Corpuscular Hemoglobin 28.8 pg (28.0-32.0); Mean Corpuscular Hgb Conc. 35.6 g/dL (32.0-36.0); Mean Corpuscular Volume 80.9 fL (80.0-100.0); Monocytes # (auto) 0.3 10 ^3/uL (0-1.3); Neutrophils # (auto) 7.2 10 ^3/uL (1.6-8.6); Neutrophils % (auto) 88.9 % (37.0-80.0); Nucleated Red Blood Cells % 0.3 %; Red Blood Cells 5.09 10^6/uL (4.0-5.20); Red Cell Distribution Width 14.7 % (11.8-14.3); White Blood Cell 8.1 10^3/uL (4.4-10.8)
[2020-06-23 08:14] LABS: Calcium 8.4 mg/dL (8.5-10.1); Potassium 3.6 mmol/L (3.5-5.1)
[2020-06-23 08:25] LABS: Albumin 2.2 g/dL (3.4-5.0); BUN/Creatinine Ratio 19.8; Bilirubin, Total 0.6 mg/dL (0.2-1.0); CRP High Sensitivity 9.69 mg/dL (< 0.3); Magnesium 1.5 mg/dL (1.6-2.6); Total Protein 7.8 g/dL (6.4-8.2)
[2020-06-23] MEDS: ASPirin 81 mg TAB PO SCH (10:10)
[2020-06-23] MEDS: ZINC SULFATE 220mg CAP or TAB PO SCH (10:10)
[2020-06-23] MEDS: POTASSIUM CHL 10 Meq TABLET PO SCH ×2 (10:11→22:00)
[2020-06-23] MEDS: CHOLECALCIFEROL (VITD3) 2,000 UNIT CAP/TAB PO SCH (10:11)
[2020-06-23] MEDS: PANTOPRAZOLE 40 MG TAB PO SCH (10:11)
[2020-06-23] MEDS: PHENYTOIN SODIUM 100 MG CAP PO SCH (10:11)
[2020-06-23] MEDS: cefTRIAXone 1GM/50ML D5W 50 ML IV SCH (10:12)
[2020-06-23] MEDS: ENOXAPARIN SOD 40 MG/0.4 ML SYRINGE SC SCH (10:12)
[2020-06-23] MEDS: DexAMETHasone SOD PHOS 10MG/1ML VIAL INJ IV SCH (10:12)
[2020-06-23] MEDS ORDERED: ENOXAPARIN SOD 40 MG/0.4 ML SYRINGE SC ONE (14:45)
[2020-06-23] MEDS ORDERED: REMDESIVIR 100 MG in SODIUM CHL 0.9% 250 ML IV SCH (15:00)
[2020-06-23] MEDS: MAGNESIUM SULFATE 1GM/100ML 100 ML IV SCH ×2 (15:12→17:03)
[2020-06-23 16:19] VITALS: BP 135/64
[2020-06-23] MEDS: CEFEPIME 1 GM in SODIUM CHL 0.9% 50 ML IV SCH ×2 (18:45→22:00)
[2020-06-23] MEDS: ALBUTEROL SULF HFA 90MCG INH 200DOSE IN PRN (20:22)
[2020-06-23] MEDS: ENOXAPARIN SOD 80 MG/0.8ML SYRINGE SC SCH (22:00)
[2020-06-23] MEDS: traMADol HCL 50 MG TAB PO PRN (22:00)
[2020-06-23 23:09] LABS: Urine Bacteria NONE SEEN /hpf (None Seen); Urine Blood Negative /uL (Negative); Urine Hyaline Cast FEW /lpf (0 - 2); Urine Mucus FEW (None Seen); Urine Specific Gravity 1.012 (1.001-1.035); Urine WBC 1 /hpf (0 - 5)
[2020-06-24] VITALS: BP 132/72
[2020-06-24] MEDS: MORPHINE SULFATE INJECTION 2 MG/ML SYRG IV PRN ×4 (00:19→21:48)
[2020-06-24] MEDS: ONDANSETRON HCL 4 MG/2 ML VIAL IV PRN ×3 (02:01→21:58)
[2020-06-24] MEDS: traMADol HCL 50 MG TAB PO PRN (05:00)
[2020-06-24] MEDS: FUROSEMIDE 20 MG/2 ML VIAL IV SCH (06:02)
[2020-06-24] MEDS: CEFEPIME 1 GM in SODIUM CHL 0.9% 50 ML IV SCH ×3 (06:02→21:47)
[2020-06-24] MEDS: InsuLIN REG 1unit/0.01ml Soln (100units/ml) SC SCH ×4 (06:04→21:46)
[2020-06-24] MEDS: ACCU-CHEK COMFORT CURVE STRIP VI SCH ×4 (06:05→21:47)
[2020-06-24] MEDS: GABAPENTIN 100 MG CAP PO SCH ×3 (06:11→21:47)
[2020-06-24] MEDS: ALBUTEROL SULF HFA 90MCG INH 200DOSE IN PRN ×2 (07:30→21:06)
[2020-06-24 08:00] VITALS: BP 126/75
[2020-06-24 08:26] LABS: Albumin 2.2 g/dL (3.4-5.0); Magnesium 2.1 mg/dL (1.6-2.6); Potassium 3.6 mmol/L (3.5-5.1)
[2020-06-24 08:30] LABS: BUN/Creatinine Ratio 27.4; Bilirubin, Total 0.5 mg/dL (0.2-1.0); Total Protein 7.9 g/dL (6.4-8.2)
[2020-06-24] MEDS: DexAMETHasone SOD PHOS 10MG/1ML VIAL INJ IV SCH (09:10)
[2020-06-24] MEDS: ASPirin 81 mg TAB PO SCH (09:10)
[2020-06-24] MEDS: PHENYTOIN SODIUM 100 MG CAP PO SCH (09:11)
[2020-06-24] MEDS: CHOLECALCIFEROL (VITD3) 2,000 UNIT CAP/TAB PO SCH (09:11)
[2020-06-24] MEDS: POTASSIUM CHL 10 Meq TABLET PO SCH ×2 (09:11→21:47)
[2020-06-24] MEDS: ENOXAPARIN SOD 80 MG/0.8ML SYRINGE SC SCH ×2 (09:12→21:47)
[2020-06-24] MEDS: PANTOPRAZOLE 40 MG TAB PO SCH (10:00)
[2020-06-24] MEDS: ZINC SULFATE 220mg CAP or TAB PO SCH (13:36)
[2020-06-24 16:00] VITALS: BP 140/82
[2020-06-24] MEDS: TEMAZEPAM 15 MG CAP PO PRN (21:48)
[2020-06-25] VITALS: BP 131/74
[2020-06-25] MEDS: ONDANSETRON HCL 4 MG/2 ML VIAL IV PRN ×4 (03:37→21:50)
[2020-06-25] MEDS: MORPHINE SULFATE INJECTION 2 MG/ML SYRG IV PRN ×4 (03:37→21:50)
[2020-06-25] MEDS: InsuLIN REG 1unit/0.01ml Soln (100units/ml) SC SCH ×4 (05:52→21:51)
[2020-06-25] MEDS: ACCU-CHEK COMFORT CURVE STRIP VI SCH ×4 (05:52→21:50)
[2020-06-25] MEDS: GABAPENTIN 100 MG CAP PO SCH ×3 (05:52→21:49)
[2020-06-25] MEDS: CEFEPIME 1 GM in SODIUM CHL 0.9% 50 ML IV SCH ×3 (05:53→21:49)
[2020-06-25] MEDS: ALBUTEROL SULF HFA 90MCG INH 200DOSE IN PRN ×2 (06:35→21:30)
[2020-06-25 07:49] LABS: BUN/Creatinine Ratio 29.2; Bilirubin, Total 0.5 mg/dL (0.2-1.0); Calcium 8.3 mg/dL (8.5-10.1); Potassium 4.4 mmol/L (3.5-5.1); Total Protein 7.6 g/dL (6.4-8.2)
[2020-06-25 08:00] VITALS: BP 148/94
[2020-06-25] MEDS: DexAMETHasone SOD PHOS 10MG/1ML VIAL INJ IV SCH (09:53)
[2020-06-25] MEDS: ASPirin 81 mg TAB PO SCH (09:53)
[2020-06-25] MEDS: PHENYTOIN SODIUM 100 MG CAP PO SCH (09:54)
[2020-06-25] MEDS: POTASSIUM CHL 10 Meq TABLET PO SCH ×2 (09:54→21:49)
[2020-06-25] MEDS: CHOLECALCIFEROL (VITD3) 2,000 UNIT CAP/TAB PO SCH (09:54)
[2020-06-25] MEDS: PANTOPRAZOLE 40 MG TAB PO SCH (09:54)
[2020-06-25] MEDS: ZINC SULFATE 220mg CAP or TAB PO SCH (09:54)
[2020-06-25] MEDS: ENOXAPARIN SOD 80 MG/0.8ML SYRINGE SC SCH ×2 (09:55→21:49)
[2020-06-25] MEDS: traMADol HCL 50 MG TAB PO PRN (15:02)
[2020-06-25 16:21] VITALS: BP 136/67
[2020-06-25] MEDS ORDERED: FUROSEMIDE 40 MG/4 ML VIAL IV ONE (20:00)
[2020-06-25] MEDS: guaiFENesin-DM 100/10mg/5ml SYR PO PRN (20:18)
[2020-06-25] MEDS: TEMAZEPAM 15 MG CAP PO PRN (21:51)
[2020-06-26] VITALS: BP 105/80
[2020-06-26] MEDS: ONDANSETRON HCL 4 MG/2 ML VIAL IV PRN ×5 (05:16→21:53)
[2020-06-26] MEDS: MORPHINE SULFATE INJECTION 2 MG/ML SYRG IV PRN ×5 (05:16→21:53)
[2020-06-26] MEDS: CEFEPIME 1 GM in SODIUM CHL 0.9% 50 ML IV SCH ×3 (06:05→21:53)
[2020-06-26] MEDS: InsuLIN REG 1unit/0.01ml Soln (100units/ml) SC SCH ×4 (06:06→22:35)
[2020-06-26] MEDS: GABAPENTIN 100 MG CAP PO SCH ×3 (06:06→21:54)
[2020-06-26] MEDS: ACCU-CHEK COMFORT CURVE STRIP VI SCH ×4 (06:06→21:53)
[2020-06-26] MEDS: guaiFENesin-DM 100/10mg/5ml SYR PO PRN ×2 (06:41→22:41)
[2020-06-26 08:00] VITALS: BP 141/85
[2020-06-26 08:30] LABS: Potassium 4.7 mmol/L (3.5-5.1)
[2020-06-26 08:37] LABS: BUN/Creatinine Ratio 22.7; Bilirubin, Total 0.6 mg/dL (0.2-1.0); Calcium 8.9 mg/dL (8.5-10.1); Total Protein 8.2 g/dL (6.4-8.2)
[2020-06-26] MEDS: DexAMETHasone SOD PHOS 10MG/1ML VIAL INJ IV SCH (10:26)
[2020-06-26] MEDS: ZINC SULFATE 220mg CAP or TAB PO SCH (10:27)
[2020-06-26] MEDS: FUROSEMIDE 40 MG/4 ML VIAL IV SCH (10:27)
[2020-06-26] MEDS: PHENYTOIN SODIUM 100 MG CAP PO SCH (10:27)
[2020-06-26] MEDS: ASPirin 81 mg TAB PO SCH (10:27)
[2020-06-26] MEDS: PANTOPRAZOLE 40 MG TAB PO SCH (10:28)
[2020-06-26] MEDS: ENOXAPARIN SOD 80 MG/0.8ML SYRINGE SC SCH ×2 (10:28→21:54)
[2020-06-26] MEDS: CHOLECALCIFEROL (VITD3) 2,000 UNIT CAP/TAB PO SCH (10:28)
[2020-06-26] MEDS: POTASSIUM CHL 10 Meq TABLET PO SCH ×2 (10:28→21:53)
[2020-06-26] MEDS: traMADol HCL 50 MG TAB PO PRN (13:21)
[2020-06-26 16:29] VITALS: BP 108/62
[2020-06-26] MEDS: ALBUTEROL SULF HFA 90MCG INH 200DOSE IN PRN (20:02)
[2020-06-26] MEDS: TEMAZEPAM 15 MG CAP PO PRN (22:40)
[2020-06-27] VITALS: BP 130/70
[2020-06-27] MEDS: MORPHINE SULFATE INJECTION 2 MG/ML SYRG IV PRN ×6 (04:18→22:08)
[2020-06-27] MEDS: ONDANSETRON HCL 4 MG/2 ML VIAL IV PRN ×5 (04:24→22:08)
[2020-06-27] MEDS: ACCU-CHEK COMFORT CURVE STRIP VI SCH ×4 (06:37→22:07)
[2020-06-27] MEDS: GABAPENTIN 100 MG CAP PO SCH ×3 (06:41→22:07)
[2020-06-27] MEDS: CEFEPIME 1 GM in SODIUM CHL 0.9% 50 ML IV SCH ×3 (06:41→22:06)
[2020-06-27] MEDS: InsuLIN REG 1unit/0.01ml Soln (100units/ml) SC SCH ×4 (07:00→22:00)
[2020-06-27 08:00] VITALS: BP 141/71
[2020-06-27] MEDS: PANTOPRAZOLE 40 MG TAB PO SCH (08:39)
[2020-06-27] MEDS: ZINC SULFATE 220mg CAP or TAB PO SCH (08:39)
[2020-06-27] MEDS: POTASSIUM CHL 10 Meq TABLET PO SCH ×2 (08:39→22:06)
[2020-06-27] MEDS: CHOLECALCIFEROL (VITD3) 2,000 UNIT CAP/TAB PO SCH (08:39)
[2020-06-27] MEDS: DexAMETHasone SOD PHOS 10MG/1ML VIAL INJ IV SCH (08:39)
[2020-06-27] MEDS: ASPirin 81 mg TAB PO SCH (08:40)
[2020-06-27] MEDS: ENOXAPARIN SOD 80 MG/0.8ML SYRINGE SC SCH (08:40)
[2020-06-27] MEDS: PHENYTOIN SODIUM 100 MG CAP PO SCH (08:40)
[2020-06-27] MEDS: FUROSEMIDE 40 MG/4 ML VIAL IV SCH (08:40)
[2020-06-27 09:28] LABS: BUN/Creatinine Ratio 36.5; Bilirubin, Total 0.4 mg/dL (0.2-1.0); Calcium 8.9 mg/dL (8.5-10.1); Potassium 4.9 mmol/L (3.5-5.1); Total Protein 7.7 g/dL (6.4-8.2)
[2020-06-27 16:00] VITALS: BP 135/78
[2020-06-27] MEDS: traMADol HCL 50 MG TAB PO PRN (17:10)
[2020-06-27] MEDS: guaiFENesin-DM 100/10mg/5ml SYR PO PRN (19:59)
[2020-06-27] MEDS: APIXABAN 5 MG TAB PO SCH (22:06)
[2020-06-28] VITALS: BP 155/105
[2020-06-28] MEDS: ALBUTEROL SULF HFA 90MCG INH 200DOSE IN PRN (01:11)
[2020-06-28] MEDS: ONDANSETRON HCL 4 MG/2 ML VIAL IV PRN ×4 (03:24→19:57)
[2020-06-28] MEDS: MORPHINE SULFATE INJECTION 2 MG/ML SYRG IV PRN ×4 (03:25→19:56)
[2020-06-28] MEDS: InsuLIN REG 1unit/0.01ml Soln (100units/ml) SC SCH ×4 (06:11→22:39)
[2020-06-28] MEDS: ACCU-CHEK COMFORT CURVE STRIP VI SCH ×4 (06:11→22:48)
[2020-06-28] MEDS: CEFEPIME 1 GM in SODIUM CHL 0.9% 50 ML IV SCH ×3 (06:20→22:47)
[2020-06-28] MEDS: GABAPENTIN 100 MG CAP PO SCH ×3 (06:20→22:47)
[2020-06-28] MEDS: traMADol HCL 50 MG TAB PO PRN (06:23)
[2020-06-28] MEDS: ASPirin 81 mg TAB PO SCH (09:30)
[2020-06-28] MEDS: CHOLECALCIFEROL (VITD3) 2,000 UNIT CAP/TAB PO SCH (09:30)
[2020-06-28] MEDS: APIXABAN 5 MG TAB PO SCH ×2 (09:37→22:47)
[2020-06-28] MEDS: POTASSIUM CHL 10 Meq TABLET PO SCH (09:38)
[2020-06-28] MEDS: PHENYTOIN SODIUM 100 MG CAP PO SCH (09:38)
[2020-06-28] MEDS: PANTOPRAZOLE 40 MG TAB PO SCH (09:38)
[2020-06-28] MEDS: ZINC SULFATE 220mg CAP or TAB PO SCH (09:38)
[2020-06-28] MEDS: FUROSEMIDE 40 MG/4 ML VIAL IV SCH (09:39)
[2020-06-28] MEDS: DexAMETHasone SOD PHOS 10MG/1ML VIAL INJ IV SCH (09:39)
[2020-06-28 12:47] LABS: Basophils # (auto) 0.1 10 ^3/uL (0-0.2); Basophils % (auto) 0.5 % (0.0-2.0); Eosinophils # (auto) 0 10 ^3/uL (0-0.8); Hematocrit 41.5 % (36.0-46.0); Hemoglobin 14.4 g/dL (12.2-16.2); Lymphocytes # (auto) 0.2 10 ^3/uL (0.4-5.4); Lymphocytes % (auto) 1.2 % (10.0-50.0); Mean Corpuscular Hemoglobin 29.2 pg (28.0-32.0); Mean Corpuscular Hgb Conc. 34.8 g/dL (32.0-36.0); Mean Corpuscular Volume 83.8 fL (80.0-100.0); Monocytes # (auto) 0.4 10 ^3/uL (0-1.3); Neutrophils # (auto) 13.5 10 ^3/uL (1.6-8.6); Neutrophils % (auto) 95.3 % (37.0-80.0); Red Blood Cells 4.96 10^6/uL (4.0-5.20); White Blood Cell 14.2 10^3/uL (4.4-10.8)
[2020-06-28 16:00] VITALS: BP 142/90
[2020-06-29] VITALS: BP 108/62
[2020-06-29] MEDS: MORPHINE SULFATE INJECTION 2 MG/ML SYRG IV PRN ×5 (03:19→23:38)
[2020-06-29] MEDS: ONDANSETRON HCL 4 MG/2 ML VIAL IV PRN ×5 (03:20→23:38)
[2020-06-29] MEDS: guaiFENesin-DM 100/10mg/5ml SYR PO PRN (04:14)
[2020-06-29] MEDS: InsuLIN REG 1unit/0.01ml Soln (100units/ml) SC SCH ×4 (05:31→21:37)
[2020-06-29] MEDS: ACCU-CHEK COMFORT CURVE STRIP VI SCH ×4 (05:32→21:39)
[2020-06-29] MEDS: GABAPENTIN 100 MG CAP PO SCH ×3 (05:32→21:40)
[2020-06-29] MEDS: CEFEPIME 1 GM in SODIUM CHL 0.9% 50 ML IV SCH ×3 (05:32→21:40)
[2020-06-29] MEDS: ZINC SULFATE 220mg CAP or TAB PO SCH (08:06)
[2020-06-29] MEDS: ASPirin 81 mg TAB PO SCH (08:06)
[2020-06-29] MEDS: DexAMETHasone SOD PHOS 10MG/1ML VIAL INJ IV SCH (08:06)
[2020-06-29] MEDS: PANTOPRAZOLE 40 MG TAB PO SCH (08:07)
[2020-06-29] MEDS: APIXABAN 5 MG TAB PO SCH ×2 (08:07→21:40)
[2020-06-29] MEDS: CHOLECALCIFEROL (VITD3) 2,000 UNIT CAP/TAB PO SCH (08:07)
[2020-06-29] MEDS: PHENYTOIN SODIUM 100 MG CAP PO SCH (08:08)
[2020-06-29] MEDS: FUROSEMIDE 40 MG/4 ML VIAL IV SCH (08:46)
[2020-06-29] MEDS ORDERED: TOCILIZUMAB 400 MG in SODIUM CHL 0.9% 80 ML IV ONE (15:00)
[2020-06-29] MEDS ORDERED: methylPREDNISolone SOD SUCC 40 MG/ML VL IV ONE (15:00)
[2020-06-29] MEDS ORDERED: diphenhdrAMINE HCL 50 MG/1 ML VL IV ONE (15:00)
[2020-06-29] MEDS ORDERED: ACETAMINOPHEN 650 mg PER 20.3 mL UD PO ONE (15:00)
[2020-06-29] MEDS: ERGOCALCIFEROL 50,000 UNIT(1.25MG) CAP PO SCH (21:39)
[2020-06-29] MEDS: ALBUTEROL SULF HFA 90MCG INH 200DOSE IN PRN (23:21)
[2020-06-30] VITALS: BP 143/82
[2020-06-30] MEDS: ONDANSETRON HCL 4 MG/2 ML VIAL IV PRN ×5 (04:21→21:40)
[2020-06-30] MEDS: MORPHINE SULFATE INJECTION 2 MG/ML SYRG IV PRN ×5 (04:22→21:40)
[2020-06-30] MEDS: ACCU-CHEK COMFORT CURVE STRIP VI SCH ×4 (06:01→21:40)
[2020-06-30] MEDS: GABAPENTIN 100 MG CAP PO SCH ×3 (06:01→21:40)
[2020-06-30] MEDS: CEFEPIME 1 GM in SODIUM CHL 0.9% 50 ML IV SCH ×2 (06:01→13:12)
[2020-06-30] MEDS: InsuLIN REG 1unit/0.01ml Soln (100units/ml) SC SCH ×4 (06:02→21:39)
[2020-06-30 06:17] LABS: Basophils # (auto) 0 10 ^3/uL (0-0.2); Basophils % (auto) 0.3 % (0.0-2.0); Eosinophils # (auto) 0 10 ^3/uL (0-0.8); Eosinophils % (auto) 0.1 % (0.0-7.0); Hematocrit 39.1 % (36.0-46.0); Hemoglobin 13.4 g/dL (12.2-16.2); Lymphocytes # (auto) 0.4 10 ^3/uL (0.4-5.4); Lymphocytes % (auto) 8.1 % (10.0-50.0); Mean Corpuscular Hemoglobin 28.1 pg (28.0-32.0); Mean Corpuscular Hgb Conc. 34.2 g/dL (32.0-36.0); Mean Corpuscular Volume 82.2 fL (80.0-100.0); Monocytes # (auto) 0.3 10 ^3/uL (0-1.3); Monocytes % (auto) 5.5 % (0.0-12.0); Neutrophils # (auto) 4.7 10 ^3/uL (1.6-8.6); Nucleated Red Blood Cells % 0.1 %; Red Blood Cells 4.76 10^6/uL (4.0-5.20); Red Cell Distribution Width 14.8 % (11.8-14.3); White Blood Cell 5.4 10^3/uL (4.4-10.8)
[2020-06-30 06:30] LABS: Calcium 9.1 mg/dL (8.5-10.1); Potassium 4.6 mmol/L (3.5-5.1)
[2020-06-30 06:32] LABS: BUN/Creatinine Ratio 53.5
[2020-06-30 08:00] VITALS: BP 132/90
[2020-06-30] MEDS: ALBUTEROL SULF HFA 90MCG INH 200DOSE IN PRN (08:45)
[2020-06-30] MEDS: FUROSEMIDE 40 MG/4 ML VIAL IV SCH (09:52)
[2020-06-30] MEDS: ASPirin 81 mg TAB PO SCH (09:52)
[2020-06-30] MEDS: DexAMETHasone SOD PHOS 10MG/1ML VIAL INJ IV SCH (09:52)
[2020-06-30] MEDS: ZINC SULFATE 220mg CAP or TAB PO SCH (09:52)
[2020-06-30] MEDS: CHOLECALCIFEROL (VITD3) 2,000 UNIT CAP/TAB PO SCH (09:53)
[2020-06-30] MEDS: PHENYTOIN SODIUM 100 MG CAP PO SCH (09:53)
[2020-06-30] MEDS: APIXABAN 5 MG TAB PO SCH ×2 (09:53→21:40)
[2020-06-30] MEDS: PANTOPRAZOLE 40 MG TAB PO SCH (09:53)
[2020-06-30] MEDS ORDERED: diphenhdrAMINE HCL 50 MG/1 ML VL IV ONE (10:30)
[2020-06-30] MEDS ORDERED: ACETAMINOPHEN 650 mg PER 20.3 mL UD PO ONE (10:30)
[2020-06-30] MEDS ORDERED: methylPREDNISolone SOD SUCC 40 MG/ML VL IV ONE (10:30)
[2020-06-30] MEDS ORDERED: TOCILIZUMAB 400 MG in SODIUM CHL 0.9% 80 ML IV ONE (10:30)
[2020-06-30] MEDS ORDERED: diphenhdrAMINE HCL 50 MG/1 ML VL ONE (10:39)
[2020-06-30 16:00] VITALS: BP 128/65
[2020-07-01] VITALS: BP 122/74
[2020-07-01] MEDS: ONDANSETRON HCL 4 MG/2 ML VIAL IV PRN ×5 (01:06→20:39)
[2020-07-01] MEDS: MORPHINE SULFATE INJECTION 2 MG/ML SYRG IV PRN ×4 (05:05→20:40)
[2020-07-01] MEDS: InsuLIN REG 1unit/0.01ml Soln (100units/ml) SC SCH ×4 (06:03→21:03)
[2020-07-01] MEDS: GABAPENTIN 100 MG CAP PO SCH ×3 (06:03→21:10)
[2020-07-01] MEDS: ACCU-CHEK COMFORT CURVE STRIP VI SCH ×4 (06:04→21:10)
[2020-07-01 07:56] LABS: BUN/Creatinine Ratio 58.8; Calcium 9.1 mg/dL (8.5-10.1); Potassium 4.8 mmol/L (3.5-5.1)
[2020-07-01 07:58] LABS: Basophils # (auto) 0 10 ^3/uL (0-0.2); Basophils % (auto) 0.3 % (0.0-2.0); Eosinophils # (auto) 0 10 ^3/uL (0-0.8); Eosinophils % (auto) 1.1 % (0.0-7.0); Hematocrit 38.6 % (36.0-46.0); Hemoglobin 13.5 g/dL (12.2-16.2); Lymphocytes # (auto) 0.5 10 ^3/uL (0.4-5.4); Lymphocytes % (auto) 11.7 % (10.0-50.0); Mean Corpuscular Hemoglobin 29.7 pg (28.0-32.0); Mean Corpuscular Hgb Conc. 34.9 g/dL (32.0-36.0); Monocytes # (auto) 0.4 10 ^3/uL (0-1.3); Monocytes % (auto) 9.6 % (0.0-12.0); Neutrophils # (auto) 3.1 10 ^3/uL (1.6-8.6); Neutrophils % (auto) 77.3 % (37.0-80.0); Nucleated Red Blood Cells % 0.1 %; Red Blood Cells 4.55 10^6/uL (4.0-5.20); Red Cell Distribution Width 14.6 % (11.8-14.3); White Blood Cell 3.9 10^3/uL (4.4-10.8)
[2020-07-01 08:00] VITALS: BP 126/66
[2020-07-01] MEDS: FUROSEMIDE 40 MG/4 ML VIAL IV SCH (09:51)
[2020-07-01] MEDS: DexAMETHasone SOD PHOS 10MG/1ML VIAL INJ IV SCH (09:51)
[2020-07-01] MEDS: ZINC SULFATE 220mg CAP or TAB PO SCH (09:52)
[2020-07-01] MEDS: PHENYTOIN SODIUM 100 MG CAP PO SCH (09:52)
[2020-07-01] MEDS: ASPirin 81 mg TAB PO SCH (09:52)
[2020-07-01] MEDS: PANTOPRAZOLE 40 MG TAB PO SCH (09:53)
[2020-07-01] MEDS: CHOLECALCIFEROL (VITD3) 2,000 UNIT CAP/TAB PO SCH (09:53)
[2020-07-01] MEDS: APIXABAN 5 MG TAB PO SCH ×2 (09:53→21:09)
[2020-07-01] MEDS: ALBUTEROL SULF HFA 90MCG INH 200DOSE IN PRN ×2 (13:47→20:30)
[2020-07-01 16:00] VITALS: BP 119/52
[2020-07-02] VITALS: BP 117/60
[2020-07-02] MEDS: MORPHINE SULFATE INJECTION 2 MG/ML SYRG IV PRN ×5 (04:02→20:43)
[2020-07-02] MEDS: ONDANSETRON HCL 4 MG/2 ML VIAL IV PRN ×4 (04:02→20:43)
[2020-07-02] MEDS: ACCU-CHEK COMFORT CURVE STRIP VI SCH ×4 (05:35→21:36)
[2020-07-02] MEDS: GABAPENTIN 100 MG CAP PO SCH ×3 (05:35→21:35)
[2020-07-02] MEDS: InsuLIN REG 1unit/0.01ml Soln (100units/ml) SC SCH ×4 (05:35→21:36)
[2020-07-02] MEDS: ALBUTEROL SULF HFA 90MCG INH 200DOSE IN PRN ×2 (06:44→22:18)
[2020-07-02 07:00] VITALS: BP 125/79
[2020-07-02] MEDS: APIXABAN 5 MG TAB PO SCH ×2 (13:55→21:35)
[2020-07-02] MEDS: ASPirin 81 mg TAB PO SCH (13:55)
[2020-07-02] MEDS: ZINC SULFATE 220mg CAP or TAB PO SCH (13:55)
[2020-07-02] MEDS: DexAMETHasone SOD PHOS 10MG/1ML VIAL INJ IV SCH (13:55)
[2020-07-02] MEDS: PHENYTOIN SODIUM 100 MG CAP PO SCH (13:55)
[2020-07-02] MEDS: PANTOPRAZOLE 40 MG TAB PO SCH (13:56)
[2020-07-02] MEDS: levoFLOXacin 500 MG TAB PO SCH (13:56)
[2020-07-02] MEDS: CHOLECALCIFEROL (VITD3) 2,000 UNIT CAP/TAB PO SCH (13:56)
[2020-07-02 16:01] VITALS: BP 120/78
[2020-07-03] VITALS: BP 120/77
[2020-07-03] MEDS: ONDANSETRON HCL 4 MG/2 ML VIAL IV PRN ×4 (03:03→20:57)
[2020-07-03] MEDS: MORPHINE SULFATE INJECTION 2 MG/ML SYRG IV PRN ×3 (03:04→15:09)
[2020-07-03] MEDS: InsuLIN REG 1unit/0.01ml Soln (100units/ml) SC SCH ×4 (05:36→20:50)
[2020-07-03] MEDS: GABAPENTIN 100 MG CAP PO SCH ×3 (05:36→20:50)
[2020-07-03] MEDS: ACCU-CHEK COMFORT CURVE STRIP VI SCH ×4 (05:36→20:50)
[2020-07-03 08:00] VITALS: BP 111/81
[2020-07-03] MEDS: CHOLECALCIFEROL (VITD3) 2,000 UNIT CAP/TAB PO SCH (09:56)
[2020-07-03] MEDS: APIXABAN 5 MG TAB PO SCH ×2 (09:56→20:50)
[2020-07-03] MEDS: ASPirin 81 mg TAB PO SCH (09:56)
[2020-07-03] MEDS: ZINC SULFATE 220mg CAP or TAB PO SCH (09:57)
[2020-07-03] MEDS: levoFLOXacin 500 MG TAB PO SCH (09:57)
[2020-07-03] MEDS: PHENYTOIN SODIUM 100 MG CAP PO SCH (09:57)
[2020-07-03] MEDS: PANTOPRAZOLE 40 MG TAB PO SCH (09:57)
[2020-07-03] MEDS: DexAMETHasone SOD PHOS 10MG/1ML VIAL INJ IV SCH (09:57)
[2020-07-03 16:00] VITALS: BP 114/73
[2020-07-03] MEDS: traMADol HCL 50 MG TAB PO PRN (17:23)
[2020-07-03] MEDS: ALBUTEROL SULF HFA 90MCG INH 200DOSE IN PRN (20:52)
[2020-07-04] MEDS: InsuLIN REG 1unit/0.01ml Soln (100units/ml) SC SCH ×4 (05:39→22:00)
[2020-07-04] MEDS: ACCU-CHEK COMFORT CURVE STRIP VI SCH ×4 (05:39→22:00)
[2020-07-04] MEDS: GABAPENTIN 100 MG CAP PO SCH ×3 (05:39→22:14)
[2020-07-04] MEDS: traMADol HCL 50 MG TAB PO PRN (05:41)
[2020-07-04 05:43] LABS: Basophils # (auto) 0 10 ^3/uL (0-0.2); Basophils % (auto) 0.7 % (0.0-2.0); Eosinophils # (auto) 0.1 10 ^3/uL (0-0.8); Eosinophils % (auto) 2.3 % (0.0-7.0); Hematocrit 35.6 % (36.0-46.0); Hemoglobin 12.5 g/dL (12.2-16.2); Lymphocytes # (auto) 0.9 10 ^3/uL (0.4-5.4); Lymphocytes % (auto) 17.7 % (10.0-50.0); Mean Corpuscular Hemoglobin 28.6 pg (28.0-32.0); Mean Corpuscular Volume 81.7 fL (80.0-100.0); Monocytes # (auto) 0.4 10 ^3/uL (0-1.3); Monocytes % (auto) 8.3 % (0.0-12.0); Neutrophils # (auto) 3.5 10 ^3/uL (1.6-8.6); Nucleated Red Blood Cells % 0.2 %; Red Blood Cells 4.35 10^6/uL (4.0-5.20); Red Cell Distribution Width 14.5 % (11.8-14.3)
[2020-07-04 05:59] LABS: BUN/Creatinine Ratio 34.7; Calcium 8.3 mg/dL (8.5-10.1); Potassium 4.6 mmol/L (3.5-5.1)
[2020-07-04] MEDS: ALBUTEROL SULF HFA 90MCG INH 200DOSE IN PRN ×2 (07:01→19:19)
[2020-07-04 08:00] VITALS: BP 125/61
[2020-07-04] MEDS: ASPirin 81 mg TAB PO SCH (10:34)
[2020-07-04] MEDS: ZINC SULFATE 220mg CAP or TAB PO SCH (10:34)
[2020-07-04] MEDS: ONDANSETRON HCL 4 MG/2 ML VIAL IV PRN ×2 (10:35→20:37)
[2020-07-04] MEDS: DexAMETHasone SOD PHOS 10MG/1ML VIAL INJ IV SCH (10:36)
[2020-07-04] MEDS: PANTOPRAZOLE 40 MG TAB PO SCH (10:38)
[2020-07-04] MEDS: APIXABAN 5 MG TAB PO SCH ×2 (10:38→22:13)
[2020-07-04] MEDS: levoFLOXacin 500 MG TAB PO SCH (10:38)
[2020-07-04] MEDS: PHENYTOIN SODIUM 100 MG CAP PO SCH (10:39)
[2020-07-04] MEDS: CHOLECALCIFEROL (VITD3) 2,000 UNIT CAP/TAB PO SCH (10:47)
[2020-07-04] MEDS: MORPHINE SULFATE INJECTION 2 MG/ML SYRG IV PRN ×2 (15:45→20:37)
[2020-07-04 16:00] VITALS: BP 146/75
[2020-07-04] MEDS: TEMAZEPAM 15 MG CAP PO PRN (22:14)
[2020-07-05] MEDS: ONDANSETRON HCL 4 MG/2 ML VIAL IV PRN ×5 (02:41→19:55)
[2020-07-05] MEDS: MORPHINE SULFATE INJECTION 2 MG/ML SYRG IV PRN ×5 (02:42→19:56)
[2020-07-05] MEDS: guaiFENesin-DM 100/10mg/5ml SYR PO PRN ×2 (06:05→14:42)
[2020-07-05] MEDS: ACCU-CHEK COMFORT CURVE STRIP VI SCH ×4 (06:06→22:22)
[2020-07-05] MEDS: InsuLIN REG 1unit/0.01ml Soln (100units/ml) SC SCH ×4 (06:06→22:23)
[2020-07-05] MEDS: GABAPENTIN 100 MG CAP PO SCH ×3 (06:06→22:16)
[2020-07-05] MEDS: ALBUTEROL SULF HFA 90MCG INH 200DOSE IN PRN ×2 (07:39→16:06)
[2020-07-05 08:00] VITALS: BP 130/70
[2020-07-05] MEDS: DexAMETHasone SOD PHOS 10MG/1ML VIAL INJ IV SCH (10:37)
[2020-07-05] MEDS: ASPirin 81 mg TAB PO SCH (10:38)
[2020-07-05] MEDS: ZINC SULFATE 220mg CAP or TAB PO SCH (10:38)
[2020-07-05] MEDS: PHENYTOIN SODIUM 100 MG CAP PO SCH (10:38)
[2020-07-05] MEDS: APIXABAN 5 MG TAB PO SCH ×2 (10:39→22:16)
[2020-07-05] MEDS: levoFLOXacin 500 MG TAB PO SCH (10:39)
[2020-07-05] MEDS: PANTOPRAZOLE 40 MG TAB PO SCH (10:39)
[2020-07-05] MEDS: CHOLECALCIFEROL (VITD3) 2,000 UNIT CAP/TAB PO SCH (10:40)
[2020-07-05 16:00] VITALS: BP 137/86
[2020-07-05] MEDS ORDERED: FUROSEMIDE 40 MG/4 ML VIAL IV ONE (18:30)
[2020-07-05] MEDS: TEMAZEPAM 15 MG CAP PO PRN (22:16)
[2020-07-06] MEDS: ONDANSETRON HCL 4 MG/2 ML VIAL IV PRN ×5 (00:14→20:20)
[2020-07-06] MEDS: MORPHINE SULFATE INJECTION 2 MG/ML SYRG IV PRN ×5 (00:14→20:20)
[2020-07-06 00:28] VITALS: BP 128/79
[2020-07-06] MEDS: ALBUTEROL SULF HFA 90MCG INH 200DOSE IN PRN ×2 (00:28→06:43)
[2020-07-06] MEDS: GABAPENTIN 100 MG CAP PO SCH ×3 (06:09→21:58)
[2020-07-06] MEDS: ACCU-CHEK COMFORT CURVE STRIP VI SCH ×4 (06:10→21:58)
[2020-07-06] MEDS: InsuLIN REG 1unit/0.01ml Soln (100units/ml) SC SCH ×4 (06:15→21:58)
[2020-07-06] MEDS: FUROSEMIDE 40 MG/4 ML VIAL IV SCH (09:14)
[2020-07-06] MEDS: DexAMETHasone SOD PHOS 10MG/1ML VIAL INJ IV SCH (09:14)
[2020-07-06] MEDS: ASPirin 81 mg TAB PO SCH (09:15)
[2020-07-06] MEDS: ZINC SULFATE 220mg CAP or TAB PO SCH (09:15)
[2020-07-06] MEDS: PANTOPRAZOLE 40 MG TAB PO SCH (09:17)
[2020-07-06] MEDS: levoFLOXacin 500 MG TAB PO SCH (09:17)
[2020-07-06] MEDS: PHENYTOIN SODIUM 100 MG CAP PO SCH (09:17)
[2020-07-06] MEDS: APIXABAN 5 MG TAB PO SCH ×2 (09:17→21:58)
[2020-07-06] MEDS: CHOLECALCIFEROL (VITD3) 2,000 UNIT CAP/TAB PO SCH (09:18)
[2020-07-06] MEDS: MEROPENEM 1GM IVPB 100 ML IV SCH (21:58)
[2020-07-06] MEDS: ERGOCALCIFEROL 50,000 UNIT(1.25MG) CAP PO SCH (22:42)
[2020-07-07] VITALS: BP 124/71
[2020-07-07] MEDS: MORPHINE SULFATE INJECTION 2 MG/ML SYRG IV PRN ×6 (00:39→22:14)
[2020-07-07] MEDS: ONDANSETRON HCL 4 MG/2 ML VIAL IV PRN ×6 (00:39→22:14)
[2020-07-07] MEDS: traMADol HCL 50 MG TAB PO PRN ×2 (03:39→15:40)
[2020-07-07] MEDS: ACCU-CHEK COMFORT CURVE STRIP VI SCH ×4 (06:28→22:01)
[2020-07-07] MEDS: InsuLIN REG 1unit/0.01ml Soln (100units/ml) SC SCH ×4 (06:28→22:00)
[2020-07-07] MEDS: GABAPENTIN 100 MG CAP PO SCH ×3 (06:28→22:01)
[2020-07-07 08:00] VITALS: BP 155/77
[2020-07-07] MEDS: ALBUTEROL SULF HFA 90MCG INH 200DOSE IN PRN (08:10)
[2020-07-07] MEDS: DexAMETHasone SOD PHOS 10MG/1ML VIAL INJ IV SCH (09:00)
[2020-07-07] MEDS: FUROSEMIDE 40 MG/4 ML VIAL IV SCH (09:00)
[2020-07-07] MEDS: ASPirin 81 mg TAB PO SCH (09:01)
[2020-07-07] MEDS: MEROPENEM 1GM IVPB 100 ML IV SCH ×2 (09:01→22:01)
[2020-07-07] MEDS: APIXABAN 5 MG TAB PO SCH ×2 (09:02→22:01)
[2020-07-07] MEDS: ZINC SULFATE 220mg CAP or TAB PO SCH (09:02)
[2020-07-07] MEDS: PHENYTOIN SODIUM 100 MG CAP PO SCH (09:02)
[2020-07-07] MEDS: PANTOPRAZOLE 40 MG TAB PO SCH (09:03)
[2020-07-07] MEDS: CHOLECALCIFEROL (VITD3) 2,000 UNIT CAP/TAB PO SCH (09:04)
[2020-07-07 16:00] VITALS: BP 118/101
[2020-07-07 23:56] VITALS: BP 145/70
[2020-07-08] MEDS: ONDANSETRON HCL 4 MG/2 ML VIAL IV PRN ×4 (05:05→20:27)
[2020-07-08] MEDS: MORPHINE SULFATE INJECTION 2 MG/ML SYRG IV PRN ×4 (05:05→20:27)
[2020-07-08] MEDS: GABAPENTIN 100 MG CAP PO SCH ×3 (06:38→21:54)
[2020-07-08] MEDS: ACCU-CHEK COMFORT CURVE STRIP VI SCH ×4 (06:38→23:56)
[2020-07-08] MEDS: InsuLIN REG 1unit/0.01ml Soln (100units/ml) SC SCH ×3 (06:38→17:13)
[2020-07-08 08:00] VITALS: BP 141/79
[2020-07-08] MEDS: ALBUTEROL SULF HFA 90MCG INH 200DOSE IN PRN ×2 (08:05→21:23)
[2020-07-08] MEDS: traMADol HCL 50 MG TAB PO PRN ×3 (08:33→23:57)
[2020-07-08] MEDS: FUROSEMIDE 40 MG/4 ML VIAL IV SCH (09:02)
[2020-07-08] MEDS: DexAMETHasone SOD PHOS 10MG/1ML VIAL INJ IV SCH (09:02)
[2020-07-08] MEDS: MEROPENEM 1GM IVPB 100 ML IV SCH ×2 (09:03→21:54)
[2020-07-08] MEDS: PHENYTOIN SODIUM 100 MG CAP PO SCH (09:04)
[2020-07-08] MEDS: ZINC SULFATE 220mg CAP or TAB PO SCH (09:04)
[2020-07-08] MEDS: ASPirin 81 mg TAB PO SCH (09:04)
[2020-07-08] MEDS: PANTOPRAZOLE 40 MG TAB PO SCH (09:05)
[2020-07-08] MEDS: CHOLECALCIFEROL (VITD3) 2,000 UNIT CAP/TAB PO SCH (09:05)
[2020-07-08] MEDS: APIXABAN 5 MG TAB PO SCH ×2 (09:05→21:54)
[2020-07-08 16:00] VITALS: BP 146/84
[2020-07-08] MEDS: guaiFENesin-DM 100/10mg/5ml SYR PO PRN (17:20)
[2020-07-08] MEDS ORDERED: DEXTROSE (50%) 50ML SYRG IV PRN (20:15)
[2020-07-09] VITALS: BP 112/78
[2020-07-09] MEDS: MORPHINE SULFATE INJECTION 2 MG/ML SYRG IV PRN ×5 (01:58→21:19)
[2020-07-09] MEDS: ONDANSETRON HCL 4 MG/2 ML VIAL IV PRN ×5 (01:59→21:19)
[2020-07-09] MEDS: InsuLIN REG 1unit/0.01ml Soln (100units/ml) SC SCH ×4 (06:00→17:10)
[2020-07-09] MEDS: GABAPENTIN 100 MG CAP PO SCH ×3 (06:14→21:20)
[2020-07-09] MEDS: ACCU-CHEK COMFORT CURVE STRIP VI SCH ×3 (06:15→17:12)
[2020-07-09 08:00] VITALS: BP 150/81
[2020-07-09] MEDS: APIXABAN 5 MG TAB PO SCH ×2 (08:43→21:20)
[2020-07-09] MEDS: MEROPENEM 1GM IVPB 100 ML IV SCH ×3 (08:43→21:20)
[2020-07-09] MEDS: PHENYTOIN SODIUM 100 MG CAP PO SCH (08:44)
[2020-07-09] MEDS: FUROSEMIDE 20 MG/2 ML VIAL IV SCH (08:44)
[2020-07-09] MEDS: PANTOPRAZOLE 40 MG TAB PO SCH (08:44)
[2020-07-09] MEDS: CHOLECALCIFEROL (VITD3) 2,000 UNIT CAP/TAB PO SCH (08:44)
[2020-07-09] MEDS: ZINC SULFATE 220mg CAP or TAB PO SCH (08:44)
[2020-07-09] MEDS: DexAMETHasone SOD PHOS 10MG/1ML VIAL INJ IV SCH (08:45)
[2020-07-09] MEDS: ASPirin 81 mg TAB PO SCH (08:45)
[2020-07-09 09:39] LABS: Basophils # (auto) 0.1 10 ^3/uL (0-0.2); Eosinophils # (auto) 0.3 10 ^3/uL (0-0.8); Eosinophils % (auto) 4.1 % (0.0-7.0); Hematocrit 36.1 % (36.0-46.0); Hemoglobin 12.5 g/dL (12.2-16.2); Lymphocytes # (auto) 1.9 10 ^3/uL (0.4-5.4); Lymphocytes % (auto) 24.6 % (10.0-50.0); Mean Corpuscular Hemoglobin 28.4 pg (28.0-32.0); Mean Corpuscular Hgb Conc. 34.6 g/dL (32.0-36.0); Monocytes % (auto) 12.7 % (0.0-12.0); Neutrophils # (auto) 4.4 10 ^3/uL (1.6-8.6); Neutrophils % (auto) 57.6 % (37.0-80.0); Nucleated Red Blood Cells % 0.1 %; Red Blood Cells 4.41 10^6/uL (4.0-5.20); Red Cell Distribution Width 15.1 % (11.8-14.3); White Blood Cell 7.7 10^3/uL (4.4-10.8)
[2020-07-09 09:53] LABS: Potassium 3.7 mmol/L (3.5-5.1)
[2020-07-09] MEDS: guaiFENesin-DM 100/10mg/5ml SYR PO PRN (12:04)
[2020-07-09] MEDS: traMADol HCL 50 MG TAB PO PRN (15:05)
[2020-07-09 16:00] VITALS: BP 141/71
[2020-07-10] VITALS: BP 115/58
[2020-07-10] MEDS: ACCU-CHEK COMFORT CURVE STRIP VI SCH ×4 (00:16→17:19)
[2020-07-10] MEDS: MORPHINE SULFATE INJECTION 2 MG/ML SYRG IV PRN ×5 (02:43→21:44)
[2020-07-10] MEDS: ONDANSETRON HCL 4 MG/2 ML VIAL IV PRN ×5 (02:43→21:44)
[2020-07-10] MEDS: InsuLIN REG 1unit/0.01ml Soln (100units/ml) SC SCH ×4 (05:15→17:19)
[2020-07-10] MEDS: MEROPENEM 1GM IVPB 100 ML IV SCH ×2 (06:30→14:11)
[2020-07-10] MEDS: GABAPENTIN 100 MG CAP PO SCH ×3 (06:30→21:44)
[2020-07-10] MEDS: guaiFENesin-DM 100/10mg/5ml SYR PO PRN (06:32)
[2020-07-10 08:00] VITALS: BP 124/58
[2020-07-10] MEDS: CHOLECALCIFEROL (VITD3) 2,000 UNIT CAP/TAB PO SCH (08:33)
[2020-07-10] MEDS: DexAMETHasone SOD PHOS 10MG/1ML VIAL INJ IV SCH (08:33)
[2020-07-10] MEDS: ASPirin 81 mg TAB PO SCH (08:33)
[2020-07-10] MEDS: FUROSEMIDE 20 MG/2 ML VIAL IV SCH (08:33)
[2020-07-10] MEDS: PHENYTOIN SODIUM 100 MG CAP PO SCH (08:33)
[2020-07-10] MEDS: PANTOPRAZOLE 40 MG TAB PO SCH (08:34)
[2020-07-10] MEDS: APIXABAN 5 MG TAB PO SCH ×2 (08:34→21:43)
[2020-07-10] MEDS: traMADol HCL 50 MG TAB PO PRN (14:12)
[2020-07-10] MEDS ORDERED: POTASSIUM EFFERVESENT TAB 25 MEQ PO ONE (15:15)
[2020-07-10 16:14] VITALS: BP 109/60
[2020-07-10] MEDS: ALBUTEROL SULF HFA 90MCG INH 200DOSE IN PRN (20:16)
[2020-07-11 00:32] VITALS: BP 121/80
[2020-07-11] MEDS: ACCU-CHEK COMFORT CURVE STRIP VI SCH ×5 (01:39→23:29)
[2020-07-11] MEDS: ONDANSETRON HCL 4 MG/2 ML VIAL IV PRN ×5 (02:35→21:09)
[2020-07-11] MEDS: MORPHINE SULFATE INJECTION 2 MG/ML SYRG IV PRN ×5 (02:35→21:08)
[2020-07-11] MEDS: InsuLIN REG 1unit/0.01ml Soln (100units/ml) SC SCH ×5 (06:00→23:29)
[2020-07-11] MEDS: GABAPENTIN 100 MG CAP PO SCH ×3 (06:49→21:05)
[2020-07-11 08:00] VITALS: BP 129/69
[2020-07-11] MEDS: DexAMETHasone SOD PHOS 10MG/1ML VIAL INJ IV SCH (10:13)
[2020-07-11] MEDS: ASPirin 81 mg TAB PO SCH (10:13)
[2020-07-11] MEDS: FUROSEMIDE 20 MG/2 ML VIAL IV SCH (10:13)
[2020-07-11] MEDS: POTASSIUM EFFERVESENT TAB 25 MEQ PO SCH (10:14)
[2020-07-11] MEDS: PHENYTOIN SODIUM 100 MG CAP PO SCH (10:14)
[2020-07-11] MEDS: CHOLECALCIFEROL (VITD3) 2,000 UNIT CAP/TAB PO SCH (10:14)
[2020-07-11] MEDS: APIXABAN 5 MG TAB PO SCH ×2 (10:14→21:04)
[2020-07-11] MEDS: PANTOPRAZOLE 40 MG TAB PO SCH (10:14)
[2020-07-11] MEDS: guaiFENesin-DM 100/10mg/5ml SYR PO PRN ×2 (10:15→22:28)
[2020-07-11] MEDS: traMADol HCL 50 MG TAB PO PRN (10:48)
[2020-07-11 16:00] VITALS: BP 118/70
[2020-07-11] MEDS: CIPROFLOXACIN 0.3%OPTH(EYE) SOL 5ML RIGHTEYE SCH ×2 (18:29→21:05)
[2020-07-11] MEDS: ALBUTEROL SULF HFA 90MCG INH 200DOSE IN PRN (19:20)
[2020-07-12] VITALS: BP 127/71
[2020-07-12] MEDS: CIPROFLOXACIN 0.3%OPTH(EYE) SOL 5ML RIGHTEYE SCH ×6 (04:36→21:58)
[2020-07-12] MEDS: GABAPENTIN 100 MG CAP PO SCH ×3 (05:34→21:57)
[2020-07-12] MEDS: InsuLIN REG 1unit/0.01ml Soln (100units/ml) SC SCH (05:35)
[2020-07-12] MEDS: ACCU-CHEK COMFORT CURVE STRIP VI SCH (05:35)
[2020-07-12] MEDS: MORPHINE SULFATE INJECTION 2 MG/ML SYRG IV PRN ×2 (05:35→09:55)
[2020-07-12] MEDS: ONDANSETRON HCL 4 MG/2 ML VIAL IV PRN ×2 (05:36→09:55)
[2020-07-12 07:28] LABS: Basophils # (auto) 0.1 10 ^3/uL (0-0.2); Basophils % (auto) 1.3 % (0.0-2.0); Eosinophils # (auto) 0.4 10 ^3/uL (0-0.8); Eosinophils % (auto) 6.1 % (0.0-7.0); Hematocrit 33.7 % (36.0-46.0); Hemoglobin 11.6 g/dL (12.2-16.2); Lymphocytes # (auto) 2.5 10 ^3/uL (0.4-5.4); Lymphocytes % (auto) 36.7 % (10.0-50.0); Mean Corpuscular Hemoglobin 28.7 pg (28.0-32.0); Mean Corpuscular Hgb Conc. 34.6 g/dL (32.0-36.0); Monocytes % (auto) 14.1 % (0.0-12.0); Neutrophils # (auto) 2.8 10 ^3/uL (1.6-8.6); Neutrophils % (auto) 41.8 % (37.0-80.0); Nucleated Red Blood Cells % 0.2 %; Red Blood Cells 4.06 10^6/uL (4.0-5.20); Red Cell Distribution Width 15.3 % (11.8-14.3); White Blood Cell 6.8 10^3/uL (4.4-10.8)
[2020-07-12 08:00] VITALS: BP 133/72
[2020-07-12] MEDS: DexAMETHasone SOD PHOS 10MG/1ML VIAL INJ IV SCH (09:56)
[2020-07-12] MEDS: FUROSEMIDE 20 MG/2 ML VIAL IV SCH (09:56)
[2020-07-12] MEDS: ASPirin 81 mg TAB PO SCH (09:57)
[2020-07-12] MEDS: APIXABAN 5 MG TAB PO SCH ×2 (09:57→21:58)
[2020-07-12] MEDS: POTASSIUM EFFERVESENT TAB 25 MEQ PO SCH (09:57)
[2020-07-12] MEDS: PANTOPRAZOLE 40 MG TAB PO SCH (09:57)
[2020-07-12] MEDS: PHENYTOIN SODIUM 100 MG CAP PO SCH ×2 (09:57→19:53)
[2020-07-12] MEDS: CHOLECALCIFEROL (VITD3) 2,000 UNIT CAP/TAB PO SCH (09:57)
[2020-07-12] MEDS: ALBUTEROL SULF HFA 90MCG INH 200DOSE IN PRN ×2 (10:19→20:55)
[2020-07-12] MEDS ORDERED: HYDROcodone-ACET 5/325MG TAB PO PRN (11:15)
[2020-07-12] MEDS: guaiFENesin-DM 100/10mg/5ml SYR PO PRN (12:25)
[2020-07-12 16:00] VITALS: BP 143/85
[2020-07-12] MEDS: DOCUSATE SOD 100 MG CAP PO SCH (21:57)
[2020-07-12] MEDS ORDERED: HYDROcodone-ACET 10/325MG TAB PO PRN (23:00)
[2020-07-13] MEDS: CIPROFLOXACIN 0.3%OPTH(EYE) SOL 5ML RIGHTEYE SCH ×6 (01:39→21:40)
[2020-07-13] MEDS: HYDROcodone-ACET 10/325MG TAB PO PRN ×4 (03:09→23:47)
[2020-07-13] MEDS: GABAPENTIN 100 MG CAP PO SCH ×3 (05:18→21:39)
[2020-07-13 08:00] VITALS: BP 123/88
[2020-07-13] MEDS: PHENYTOIN SODIUM 100 MG CAP PO SCH (09:23)
[2020-07-13] MEDS: DOCUSATE SOD 100 MG CAP PO SCH ×2 (09:26→21:38)
[2020-07-13] MEDS: PANTOPRAZOLE 40 MG TAB PO SCH (09:26)
[2020-07-13] MEDS: ASPirin 81 mg TAB PO SCH (09:26)
[2020-07-13] MEDS: APIXABAN 5 MG TAB PO SCH ×2 (09:26→21:39)
[2020-07-13] MEDS: FUROSEMIDE 20 MG/2 ML VIAL IV SCH (09:28)
[2020-07-13] MEDS: DexAMETHasone SOD PHOS 10MG/1ML VIAL INJ IV SCH (09:30)
[2020-07-13] MEDS: POTASSIUM EFFERVESENT TAB 25 MEQ PO SCH (09:31)
[2020-07-13] MEDS: CHOLECALCIFEROL (VITD3) 2,000 UNIT CAP/TAB PO SCH (09:31)
[2020-07-13] MEDS: ALBUTEROL SULF HFA 90MCG INH 200DOSE IN PRN ×2 (10:28→19:25)
[2020-07-13 16:00] VITALS: BP 130/80
[2020-07-13] MEDS: ERGOCALCIFEROL 50,000 UNIT(1.25MG) CAP PO SCH (21:39)
[2020-07-14 01:21] VITALS: BP 133/75
[2020-07-14] MEDS: CIPROFLOXACIN 0.3%OPTH(EYE) SOL 5ML RIGHTEYE SCH ×6 (01:53→22:19)
[2020-07-14] MEDS: GABAPENTIN 100 MG CAP PO SCH ×3 (05:44→22:19)
[2020-07-14] MEDS: HYDROcodone-ACET 10/325MG TAB PO PRN ×3 (05:46→22:20)
[2020-07-14 07:16] LABS: Basophils # (auto) 0.1 10 ^3/uL (0-0.2); Basophils % (auto) 1.1 % (0.0-2.0); Eosinophils # (auto) 0.2 10 ^3/uL (0-0.8); Eosinophils % (auto) 3.5 % (0.0-7.0); Hematocrit 34.3 % (36.0-46.0); Hemoglobin 11.6 g/dL (12.2-16.2); Lymphocytes # (auto) 2.5 10 ^3/uL (0.4-5.4); Lymphocytes % (auto) 35.9 % (10.0-50.0); Mean Corpuscular Hemoglobin 27.9 pg (28.0-32.0); Monocytes % (auto) 15.1 % (0.0-12.0); Neutrophils % (auto) 44.4 % (37.0-80.0); Nucleated Red Blood Cells % 0.1 %; Red Blood Cells 4.18 10^6/uL (4.0-5.20); Red Cell Distribution Width 15.6 % (11.8-14.3); White Blood Cell 6.8 10^3/uL (4.4-10.8)
[2020-07-14 07:25] LABS: Calcium 8.7 mg/dL (8.5-10.1); Potassium 3.7 mmol/L (3.5-5.1)
[2020-07-14] MEDS: ALBUTEROL SULF HFA 90MCG INH 200DOSE IN PRN ×3 (07:29→19:33)
[2020-07-14 07:32] LABS: BUN/Creatinine Ratio 28.3; Bilirubin, Total 0.3 mg/dL (0.2-1.0); CRP High Sensitivity 0.09 mg/dL (< 0.3); Total Protein 6.6 g/dL (6.4-8.2)
[2020-07-14 08:00] VITALS: BP 125/73
[2020-07-14] MEDS: DexAMETHasone SOD PHOS 10MG/1ML VIAL INJ IV SCH (09:50)
[2020-07-14] MEDS: FUROSEMIDE 20 MG/2 ML VIAL IV SCH (09:50)
[2020-07-14] MEDS: PHENYTOIN SODIUM 100 MG CAP PO SCH (09:51)
[2020-07-14] MEDS: DOCUSATE SOD 100 MG CAP PO SCH ×2 (09:51→22:19)
[2020-07-14] MEDS: ASPirin 81 mg TAB PO SCH (09:51)
[2020-07-14] MEDS: APIXABAN 5 MG TAB PO SCH ×2 (09:52→22:19)
[2020-07-14] MEDS: POLYETHYLENE GLYCOL 17 GM PWDR PO SCH (09:52)
[2020-07-14] MEDS: PANTOPRAZOLE 40 MG TAB PO SCH (09:53)
[2020-07-14] MEDS: CHOLECALCIFEROL (VITD3) 2,000 UNIT CAP/TAB PO SCH (09:54)
[2020-07-14] MEDS: POTASSIUM EFFERVESENT TAB 25 MEQ PO SCH (10:39)
[2020-07-14 16:00] VITALS: BP 140/76
[2020-07-15] VITALS: BP 138/84
[2020-07-15] MEDS: CIPROFLOXACIN 0.3%OPTH(EYE) SOL 5ML RIGHTEYE SCH ×4 (01:51→22:00)
[2020-07-15] MEDS: guaiFENesin-DM 100/10mg/5ml SYR PO PRN (02:11)
[2020-07-15] MEDS: GABAPENTIN 100 MG CAP PO SCH ×3 (05:31→22:00)
[2020-07-15] MEDS: HYDROcodone-ACET 10/325MG TAB PO PRN ×2 (06:14→11:33)
[2020-07-15 08:18] VITALS: BP 132/77
[2020-07-15] MEDS: FUROSEMIDE 20 MG/2 ML VIAL IV SCH (10:27)
[2020-07-15] MEDS: PHENYTOIN SODIUM 100 MG CAP PO SCH (10:28)
[2020-07-15] MEDS: DexAMETHasone SOD PHOS 10MG/1ML VIAL INJ IV SCH (10:29)
[2020-07-15] MEDS: CHOLECALCIFEROL (VITD3) 2,000 UNIT CAP/TAB PO SCH (10:30)
[2020-07-15] MEDS: ASPirin 81 mg TAB PO SCH (10:30)
[2020-07-15] MEDS: APIXABAN 5 MG TAB PO SCH ×2 (10:31→22:00)
[2020-07-15] MEDS: DOCUSATE SOD 100 MG CAP PO SCH ×2 (10:31→22:00)
[2020-07-15] MEDS: PANTOPRAZOLE 40 MG TAB PO SCH (10:31)
[2020-07-15] MEDS: POLYETHYLENE GLYCOL 17 GM PWDR PO SCH (10:32)
[2020-07-15] MEDS: POTASSIUM EFFERVESENT TAB 25 MEQ PO SCH (10:33)
[2020-07-15] MEDS: MORPHINE SULFATE INJECTION 2 MG/ML SYRG IV PRN ×2 (15:13→23:01)
[2020-07-15 15:30] VITALS: BP 136/80
[2020-07-15] MEDS: ALBUTEROL SULF HFA 90MCG INH 200DOSE IN PRN (19:41)
[2020-07-15] MEDS: ONDANSETRON HCL 4 MG/2 ML VIAL IV PRN (21:59)
[2020-07-16] VITALS: BP 134/82
[2020-07-16] MEDS: CIPROFLOXACIN 0.3%OPTH(EYE) SOL 5ML RIGHTEYE SCH ×6 (02:00→22:00)
[2020-07-16] MEDS: ONDANSETRON HCL 4 MG/2 ML VIAL IV PRN ×3 (04:07→20:22)
[2020-07-16] MEDS: MORPHINE SULFATE INJECTION 2 MG/ML SYRG IV PRN ×3 (04:08→16:28)
[2020-07-16] MEDS: GABAPENTIN 100 MG CAP PO SCH ×3 (05:21→22:00)
[2020-07-16] MEDS: guaiFENesin-DM 100/10mg/5ml SYR PO PRN ×2 (06:21→18:07)
[2020-07-16 08:00] VITALS: BP 126/79
[2020-07-16] MEDS: POLYETHYLENE GLYCOL 17 GM PWDR PO SCH (10:00)
[2020-07-16] MEDS: DexAMETHasone SOD PHOS 10MG/1ML VIAL INJ IV SCH (10:26)
[2020-07-16] MEDS: PHENYTOIN SODIUM 100 MG CAP PO SCH (10:27)
[2020-07-16] MEDS: FUROSEMIDE 20 MG/2 ML VIAL IV SCH (10:27)
[2020-07-16] MEDS: ASPirin 81 mg TAB PO SCH (10:27)
[2020-07-16] MEDS: DOCUSATE SOD 100 MG CAP PO SCH ×2 (10:27→22:00)
[2020-07-16] MEDS: APIXABAN 5 MG TAB PO SCH ×2 (10:28→22:00)
[2020-07-16] MEDS: POTASSIUM EFFERVESENT TAB 25 MEQ PO SCH (10:29)
[2020-07-16] MEDS: CHOLECALCIFEROL (VITD3) 2,000 UNIT CAP/TAB PO SCH (10:29)
[2020-07-16] MEDS: PANTOPRAZOLE 40 MG TAB PO SCH (10:29)
[2020-07-16 16:00] VITALS: BP 130/78
[2020-07-16] MEDS: ALBUTEROL SULF HFA 90MCG INH 200DOSE IN PRN (20:03)
[2020-07-17] VITALS: BP 145/82
[2020-07-17] MEDS: MORPHINE SULFATE INJECTION 2 MG/ML SYRG IV PRN ×4 (00:10→23:32)
[2020-07-17] MEDS: CIPROFLOXACIN 0.3%OPTH(EYE) SOL 5ML RIGHTEYE SCH ×6 (02:05→22:13)
[2020-07-17] MEDS: GABAPENTIN 100 MG CAP PO SCH ×3 (06:10→22:13)
[2020-07-17] MEDS: ONDANSETRON HCL 4 MG/2 ML VIAL IV PRN ×3 (06:11→23:32)
[2020-07-17] MEDS: ALBUTEROL SULF HFA 90MCG INH 200DOSE IN PRN ×2 (07:30→20:24)
[2020-07-17 08:00] VITALS: BP 157/80
[2020-07-17] MEDS: POLYETHYLENE GLYCOL 17 GM PWDR PO SCH (10:00)
[2020-07-17] MEDS: DexAMETHasone SOD PHOS 10MG/1ML VIAL INJ IV SCH (10:29)
[2020-07-17] MEDS: APIXABAN 5 MG TAB PO SCH ×2 (10:30→22:13)
[2020-07-17] MEDS: FUROSEMIDE 20 MG/2 ML VIAL IV SCH (10:30)
[2020-07-17] MEDS: PHENYTOIN SODIUM 100 MG CAP PO SCH (10:30)
[2020-07-17] MEDS: ASPirin 81 mg TAB PO SCH (10:30)
[2020-07-17] MEDS: DOCUSATE SOD 100 MG CAP PO SCH ×2 (10:30→22:13)
[2020-07-17] MEDS: POTASSIUM EFFERVESENT TAB 25 MEQ PO SCH (10:31)
[2020-07-17] MEDS: PANTOPRAZOLE 40 MG TAB PO SCH (10:31)
[2020-07-17] MEDS: CHOLECALCIFEROL (VITD3) 2,000 UNIT CAP/TAB PO SCH (10:31)
[2020-07-17] MEDS: guaiFENesin-DM 100/10mg/5ml SYR PO PRN (15:21)
[2020-07-17 16:00] VITALS: BP 140/77
[2020-07-17 22:00] VITALS: BP 122/63
[2020-07-18] MEDS: MORPHINE SULFATE INJECTION 2 MG/ML SYRG IV PRN ×6 (01:24→22:03)
[2020-07-18] MEDS: CIPROFLOXACIN 0.3%OPTH(EYE) SOL 5ML RIGHTEYE SCH ×6 (02:13→22:01)
[2020-07-18] MEDS: GABAPENTIN 100 MG CAP PO SCH ×3 (05:48→22:01)
[2020-07-18 07:04] LABS: Basophils # (auto) 0.1 10 ^3/uL (0-0.2); Basophils % (auto) 0.5 % (0.0-2.0); Eosinophils # (auto) 0.3 10 ^3/uL (0-0.8); Eosinophils % (auto) 2.3 % (0.0-7.0); Hematocrit 35.6 % (36.0-46.0); Hemoglobin 12.2 g/dL (12.2-16.2); Lymphocytes % (auto) 25.3 % (10.0-50.0); Mean Corpuscular Hemoglobin 27.9 pg (28.0-32.0); Mean Corpuscular Hgb Conc. 34.2 g/dL (32.0-36.0); Mean Corpuscular Volume 81.6 fL (80.0-100.0); Monocytes # (auto) 1.4 10 ^3/uL (0-1.3); Monocytes % (auto) 12.1 % (0.0-12.0); Neutrophils % (auto) 59.8 % (37.0-80.0); Red Blood Cells 4.36 10^6/uL (4.0-5.20); Red Cell Distribution Width 15.9 % (11.8-14.3); White Blood Cell 11.8 10^3/uL (4.4-10.8)
[2020-07-18] MEDS: ONDANSETRON HCL 4 MG/2 ML VIAL IV PRN ×2 (07:06→13:40)
[2020-07-18 07:34] LABS: Calcium 8.8 mg/dL (8.5-10.1); Potassium 3.6 mmol/L (3.5-5.1)
[2020-07-18 07:37] LABS: BUN/Creatinine Ratio 20.3
[2020-07-18 07:51] VITALS: BP 147/102
[2020-07-18] MEDS: DexAMETHasone SOD PHOS 10MG/1ML VIAL INJ IV SCH (09:40)
[2020-07-18] MEDS: ASPirin 81 mg TAB PO SCH (09:41)
[2020-07-18] MEDS: DOCUSATE SOD 100 MG CAP PO SCH ×2 (09:41→22:00)
[2020-07-18] MEDS: PHENYTOIN SODIUM 100 MG CAP PO SCH (09:41)
[2020-07-18] MEDS: FUROSEMIDE 20 MG/2 ML VIAL IV SCH (09:41)
[2020-07-18] MEDS: POLYETHYLENE GLYCOL 17 GM PWDR PO SCH (09:42)
[2020-07-18] MEDS: POTASSIUM EFFERVESENT TAB 25 MEQ PO SCH (09:42)
[2020-07-18] MEDS: PANTOPRAZOLE 40 MG TAB PO SCH ×2 (09:42→22:01)
[2020-07-18] MEDS: APIXABAN 5 MG TAB PO SCH (09:42)
[2020-07-18] MEDS: CHOLECALCIFEROL (VITD3) 2,000 UNIT CAP/TAB PO SCH (09:42)
[2020-07-18 15:35] VITALS: BP 133/75
[2020-07-18] MEDS: ALBUTEROL SULF HFA 90MCG INH 200DOSE IN PRN (22:27)
[2020-07-19] VITALS: BP 143/83
[2020-07-19] MEDS: MORPHINE SULFATE INJECTION 2 MG/ML SYRG IV PRN ×6 (01:00→17:59)
[2020-07-19] MEDS: CIPROFLOXACIN 0.3%OPTH(EYE) SOL 5ML RIGHTEYE SCH ×4 (02:11→14:21)
[2020-07-19] MEDS: guaiFENesin-DM 100/10mg/5ml SYR PO PRN (02:14)
[2020-07-19] MEDS: ONDANSETRON HCL 4 MG/2 ML VIAL IV PRN ×3 (04:03→17:59)
[2020-07-19] MEDS: GABAPENTIN 100 MG CAP PO SCH ×3 (06:14→21:56)
[2020-07-19 08:00] VITALS: BP 141/75
[2020-07-19] MEDS: DOCUSATE SOD 100 MG CAP PO SCH ×2 (08:55→17:58)
[2020-07-19] MEDS: PHENYTOIN SODIUM 100 MG CAP PO SCH (08:55)
[2020-07-19] MEDS: predniSONE 20 MG TAB PO SCH (08:55)
[2020-07-19] MEDS: POLYETHYLENE GLYCOL 17 GM PWDR PO SCH (08:55)
[2020-07-19] MEDS: POTASSIUM EFFERVESENT TAB 25 MEQ PO SCH (08:55)
[2020-07-19] MEDS: FUROSEMIDE 20 MG/2 ML VIAL IV SCH (08:55)
[2020-07-19] MEDS: CHOLECALCIFEROL (VITD3) 2,000 UNIT CAP/TAB PO SCH (08:56)
[2020-07-19] MEDS: PANTOPRAZOLE 40 MG TAB PO SCH ×2 (08:56→21:57)
[2020-07-19] MEDS: APIXABAN 5 MG TAB PO SCH ×2 (10:30→21:56)
[2020-07-19] MEDS ORDERED: guaiFENesin-DM 100/10mg/5ml SYR PO PRN (10:30)
[2020-07-19 12:17] LABS: Calcium 8.4 mg/dL (8.5-10.1); Potassium 3.7 mmol/L (3.5-5.1)
[2020-07-19 12:22] LABS: Basophils # (auto) 0 10 ^3/uL (0-0.2); Basophils % (auto) 0.6 % (0.0-2.0); Eosinophils # (auto) 0.3 10 ^3/uL (0-0.8); Eosinophils % (auto) 3.6 % (0.0-7.0); Hematocrit 32.5 % (36.0-46.0); Hemoglobin 11.3 g/dL (12.2-16.2); Lymphocytes # (auto) 1.2 10 ^3/uL (0.4-5.4); Lymphocytes % (auto) 14.2 % (10.0-50.0); Mean Corpuscular Hemoglobin 28.5 pg (28.0-32.0); Mean Corpuscular Hgb Conc. 34.7 g/dL (32.0-36.0); Mean Corpuscular Volume 82.2 fL (80.0-100.0); Monocytes # (auto) 0.9 10 ^3/uL (0-1.3); Monocytes % (auto) 10.6 % (0.0-12.0); Nucleated Red Blood Cells % 0.1 %; Red Blood Cells 3.96 10^6/uL (4.0-5.20); Red Cell Distribution Width 15.3 % (11.8-14.3); White Blood Cell 8.4 10^3/uL (4.4-10.8)
[2020-07-19 16:00] VITALS: BP 117/41
[2020-07-19] MEDS: guaiFENesin-DM 100/10mg/5ml SYR PO SCH ×2 (17:58→21:57)
[2020-07-20] MEDS: MORPHINE SULFATE INJECTION 2 MG/ML SYRG IV PRN ×5 (00:56→23:24)
[2020-07-20] MEDS: ONDANSETRON HCL 4 MG/2 ML VIAL IV PRN ×5 (00:56→23:24)
[2020-07-20 01:11] VITALS: BP 134/85
[2020-07-20] MEDS: guaiFENesin-DM 100/10mg/5ml SYR PO SCH ×6 (01:58→22:02)
[2020-07-20] MEDS: GABAPENTIN 100 MG CAP PO SCH ×3 (06:08→22:02)
[2020-07-20 08:00] VITALS: BP 132/66
[2020-07-20] MEDS: FUROSEMIDE 20 MG/2 ML VIAL IV SCH (08:59)
[2020-07-20] MEDS: DOCUSATE SOD 100 MG CAP PO SCH ×2 (08:59→22:01)
[2020-07-20] MEDS: predniSONE 20 MG TAB PO SCH (08:59)
[2020-07-20] MEDS: APIXABAN 5 MG TAB PO SCH ×2 (09:00→22:01)
[2020-07-20] MEDS: PHENYTOIN SODIUM 100 MG CAP PO SCH (09:00)
[2020-07-20] MEDS: POTASSIUM EFFERVESENT TAB 25 MEQ PO SCH (09:00)
[2020-07-20] MEDS: POLYETHYLENE GLYCOL 17 GM PWDR PO SCH (09:01)
[2020-07-20] MEDS: PANTOPRAZOLE 40 MG TAB PO SCH ×2 (09:01→22:02)
[2020-07-20] MEDS: CHOLECALCIFEROL (VITD3) 2,000 UNIT CAP/TAB PO SCH (09:02)
[2020-07-20 16:00] VITALS: BP 115/80
[2020-07-20] MEDS: ALBUTEROL SULF HFA 90MCG INH 200DOSE IN PRN (21:14)
[2020-07-20] MEDS: ERGOCALCIFEROL 50,000 UNIT(1.25MG) CAP PO SCH (22:08)
[2020-07-21] VITALS: BP 131/74
[2020-07-21] MEDS: guaiFENesin-DM 100/10mg/5ml SYR PO SCH ×6 (02:00→22:00)
[2020-07-21] MEDS: GABAPENTIN 100 MG CAP PO SCH ×3 (05:39→22:00)
[2020-07-21] MEDS: MORPHINE SULFATE INJECTION 2 MG/ML SYRG IV PRN ×3 (05:40→17:35)
[2020-07-21] MEDS: ONDANSETRON HCL 4 MG/2 ML VIAL IV PRN ×3 (05:43→17:36)
[2020-07-21 08:00] VITALS: BP 137/73
[2020-07-21] MEDS: predniSONE 20 MG TAB PO SCH (08:54)
[2020-07-21] MEDS: DOCUSATE SOD 100 MG CAP PO SCH ×2 (08:54→22:00)
[2020-07-21] MEDS: FUROSEMIDE 20 MG/2 ML VIAL IV SCH (08:54)
[2020-07-21] MEDS: APIXABAN 5 MG TAB PO SCH ×2 (08:55→22:00)
[2020-07-21] MEDS: PANTOPRAZOLE 40 MG TAB PO SCH ×2 (08:55→22:00)
[2020-07-21] MEDS: PHENYTOIN SODIUM 100 MG CAP PO SCH (08:55)
[2020-07-21] MEDS: POTASSIUM EFFERVESENT TAB 25 MEQ PO SCH (08:55)
[2020-07-21] MEDS: POLYETHYLENE GLYCOL 17 GM PWDR PO SCH (08:59)
[2020-07-21] MEDS: CHOLECALCIFEROL (VITD3) 2,000 UNIT CAP/TAB PO SCH (08:59)
[2020-07-21 16:00] VITALS: BP 159/76
[2020-07-21] MEDS: ALBUTEROL SULF HFA 90MCG INH 200DOSE IN PRN (20:38)
[2020-07-22] MEDS: ONDANSETRON HCL 4 MG/2 ML VIAL IV PRN ×2 (00:40→06:37)
[2020-07-22] MEDS: MORPHINE SULFATE INJECTION 2 MG/ML SYRG IV PRN ×2 (00:41→06:37)
[2020-07-22 00:51] VITALS: BP 140/76
[2020-07-22] MEDS: guaiFENesin-DM 100/10mg/5ml SYR PO SCH ×4 (02:50→13:43)
[2020-07-22] MEDS: GABAPENTIN 100 MG CAP PO SCH ×2 (06:00→13:43)
[2020-07-22 08:00] VITALS: BP 135/81
[2020-07-22] MEDS: FUROSEMIDE 20 MG/2 ML VIAL IV SCH (10:19)
[2020-07-22] MEDS: PHENYTOIN SODIUM 100 MG CAP PO SCH (10:20)
[2020-07-22] MEDS: PANTOPRAZOLE 40 MG TAB PO SCH (10:20)
[2020-07-22] MEDS: POTASSIUM EFFERVESENT TAB 25 MEQ PO SCH (10:20)
[2020-07-22] MEDS: predniSONE 20 MG TAB PO SCH (10:20)
[2020-07-22] MEDS: DOCUSATE SOD 100 MG CAP PO SCH (10:21)
[2020-07-22] MEDS: CHOLECALCIFEROL (VITD3) 2,000 UNIT CAP/TAB PO SCH (10:21)
[2020-07-22] MEDS: APIXABAN 5 MG TAB PO SCH (10:21)
[2020-07-22] MEDS: POLYETHYLENE GLYCOL 17 GM PWDR PO SCH (10:31)
[2020-07-22] MEDS: ALBUTEROL SULF HFA 90MCG INH 200DOSE IN PRN ×2 (13:20→13:35)
[2020-07-22] MEDS ORDERED: MORPHINE SULF 15mg ER tab PO ONE (14:00)
[2020-07-22] MEDS ORDERED: DEXT1SYP9 PO (15:34)
[2020-07-22] MEDS ORDERED: APIX5TAB PO (15:34)
[2020-07-22] MEDS ORDERED: CHOL1CAP47 PO (15:37)
[2020-07-22 16:00] VITALS: BP 158/83
== END 2020-07-22 17:39 | disposition home health service (06) | DRG 871 ==
LOC: ER 13:45 → TELE 13:46 → TELE-WESTW 06-17 02:25
PROVIDERS: ADMIT Nurse Practitioner; ATTEND Internal Medicine Nephrology
PROC: 05HC33Z Insertion of Infusion Device into Left Basilic Vein, Percutaneous Approach (ICD-10-PCS; 2020-06-18)
PROC: B54NZZA Ultrasonography of Left Upper Extremity Veins, Guidance (ICD-10-PCS; 2020-06-18)
PROC: XW033E5 Introduction of Remdesivir Anti-infective into Peripheral Vein, Percutaneous Approach, New Technology Group 5 (ICD-10-PCS; principal; 2020-06-20)
PROC: XW033H5 Introduction of Tocilizumab into Peripheral Vein, Percutaneous Approach, New Technology Group 5 (ICD-10-PCS; 2020-06-29)
DX: A41.89 Other specified sepsis (principal); U07.1 COVID-19; J96.01 Acute respiratory failure with hypoxia; J12.82 Pneumonia due to coronavirus disease 2019; N17.0 Acute kidney failure with tubular necrosis; I26.99 Other pulmonary embolism without acute cor pulmonale; I82.432 Acute embolism and thrombosis of left popliteal vein; R04.2 Hemoptysis; D89.839 Cytokine release syndrome, grade unspecified; M32.9 Systemic lupus erythematosus, unspecified; J40 Bronchitis, not specified as acute or chronic; E87.6 Hypokalemia; E11.9 Type 2 diabetes mellitus without complications; R74.01 Elevation of levels of liver transaminase levels; E86.0 Dehydration; G40.909 Epilepsy, unspecified, not intractable, without status epilepticus; E66.9 Obesity, unspecified; I10 Essential (primary) hypertension; E78.5 Hyperlipidemia, unspecified; I27.20 Pulmonary hypertension, unspecified; E55.9 Vitamin D deficiency, unspecified; F12.90 Cannabis use, unspecified, uncomplicated; Z68.31 Body mass index [BMI] 31.0-31.9, adult; Z79.899 Other long term (current) drug therapy; Z80.0 Family history of malignant neoplasm of digestive organs; Z90.710 Acquired absence of both cervix and uterus; Z91.013 Allergy to seafood; Z90.49 Acquired absence of other specified parts of digestive tract; Z88.0 Allergy status to penicillin; Z88.8 Allergy status to other drugs, medicaments and biological substances; Z88.6 Allergy status to analgesic agent; Z88.1 Allergy status to other antibiotic agents
CPT/HCPCS: 36415; 36600; 71045; 71250; 80048; 80053; 81001; 82306; 82570; 82728; 82805; 82962; 83605; 83615; 83735; 83880; 84132; 84156; 84443; 85025; 85379; 85610; 85652; 85730; 86141; 86160; 86225; 86235; 86850; 86900; 86901; 87040; 87081; 87086; 87426; 93005; 93970; 94640; 97110; 97116; 97163; 97530; G0378; J0696; J1100; J1815; J2185; J2405; J3490

== ENCOUNTER → 2020-08-12 | Outpatient (CLI) | payer MEDICARE, MEDICAID ==
[~2020-08-12] MED LIST changes: +ALBUAER3 IN; +APIX5TAB PO; +CHOL1CAP47 PO; +DEXT1SYP9 PO; +GABA100C9 PO; +LISI2.5T47 PO; +LORA1TAB23 PO; +PRED10TA PO
== END | disposition home or self-care (01) ==
LOC: LAB 15:47
PROVIDERS: ATTEND Internal Medicine
DX: E11.9 Type 2 diabetes mellitus without complications (principal)
CPT/HCPCS: 36415; 83036

== ENCOUNTER 2021-03-26 15:53 | Inpatient (IN) | payer MEDICARE, MEDICAID ==
[~2021-03-26] VITALS: Ht 157.5 cm; Wt 90.3 kg
[2021-03-26] MEDS ORDERED: SODIUM CHLORIDE 0.9% 1,000 ML IVB ONE (17:45)
[2021-03-26 18:23] LABS: Eosinophils # (auto) 0 10 ^3/uL (0-0.8); Eosinophils % (auto) 0.2 % (0.0-7.0); Hemoglobin 12.7 g/dL (12.2-16.2)
[2021-03-26 18:26] LABS: Basophils # (auto) 0.2 10 ^3/uL (0-0.2); Basophils % (auto) 1.4 % (0.0-2.0); Hematocrit 38.5 % (36.0-46.0); Lymphocytes # (auto) 2.6 10 ^3/uL (0.4-5.4); Lymphocytes % (auto) 20.2 % (10.0-50.0); Mean Corpuscular Hemoglobin 26.3 pg (28.0-32.0); Mean Corpuscular Volume 79.4 fL (80.0-100.0); Monocytes # (auto) 0.8 10 ^3/uL (0-1.3); Monocytes % (auto) 6.1 % (0.0-12.0); Neutrophils # (auto) 9.1 10 ^3/uL (1.6-8.6); Neutrophils % (auto) 72.1 % (37.0-80.0); Nucleated Red Blood Cells % 0.3 %; Red Blood Cells 4.84 10^6/uL (4.0-5.20); Red Cell Distribution Width 17.4 % (11.8-14.3); White Blood Cell 12.7 10^3/uL (4.4-10.8)
[2021-03-26 18:33] LABS: INR 0.97 (0.9-1.15); Partial Thromboplastin Time 25.2 sec (23.6-33.0)
[2021-03-26 18:38] LABS: Albumin 3.4 g/dL (3.4-5.0); Calcium 8.8 mg/dL (8.5-10.1); Magnesium 2.3 mg/dL (1.6-2.6); Potassium 3.7 mmol/L (3.5-5.1)
[2021-03-26 18:40] LABS: BUN/Creatinine Ratio 16.9
[2021-03-26 18:53] LABS: Bilirubin, Total 0.1 mg/dL (0.2-1.0); Total Protein 7.2 g/dL (6.4-8.2)
[2021-03-26] MEDS ORDERED: cefTRIAXone 1GM/50ML D5W 50 ML IV ONE (19:45)
[2021-03-26 20:35] LABS: Lactic Acid w/Reflex 6.4 mmol/L (0.4-2.0)
[2021-03-26] MEDS ORDERED: MORPHINE SULFATE 4 MG/ML SYR/VIAL IV ONE (21:15)
[2021-03-26] MEDS ORDERED: ONDANSETRON HCL 4 MG/2 ML VIAL IV ONE (21:15)
[2021-03-26] MEDS ORDERED: DOCUSATE SOD 100 MG CAP PO PRN (21:30)
[2021-03-26] MEDS ORDERED: DEXTROSE (50%) 50ML SYRG IV PRN (21:30)
[2021-03-26] MEDS ORDERED: VANCOMYCIN PER PHARMACY 0 MG IV SCH (21:30)
[2021-03-26] MEDS ORDERED: SODIUM CHLORIDE 0.9% 1,000 ML IV SCH (21:30)
[2021-03-26] MEDS: AZITHROMYCIN 500MG/ 250ML 250 ML IV SCH (21:38)
[2021-03-26] MEDS: InsuLIN REG 1unit/0.01ml Soln (100units/ml) SC SCH (22:00)
[2021-03-26] MEDS: FAMOTIDINE (10MG/ML) 2ML VL IV SCH (22:00)
[2021-03-26] MEDS: ASCORBIC ACID 500 MG TAB PO SCH (22:00)
[2021-03-26] MEDS: ACCU-CHEK COMFORT CURVE STRIP VI SCH (22:00)
[2021-03-26] MEDS ORDERED: VANCOMYCIN 1GM/250ML 250 ML IV ONE (22:30)
[2021-03-27] VITALS (7 sets, daily range): BP systolic 100–135; BP diastolic 57–79
[2021-03-27] MEDS ORDERED: NITROGLYCERIN 0.4 MG SL TAB SL PRN (00:30)
[2021-03-27] MEDS ORDERED: MORPHINE SULFATE INJECTION 2 MG/ML SYRG IV PRN (00:30)
[2021-03-27] MEDS: MORPHINE SULFATE INJECTION 2 MG/ML SYRG IV PRN ×5 (01:30→20:10)
[2021-03-27] MEDS: ONDANSETRON HCL 4 MG/2 ML VIAL IV PRN ×4 (01:37→20:10)
[2021-03-27 01:48] LABS: Albumin 2.8 g/dL (3.4-5.0); Anion Gap 8 (5-15); Blood Urea Nitrogen 14 mg/dL (7-18); Calcium 7.4 mg/dL (8.5-10.1); Carbon Dioxide 24 mmol/L (21-32); Chloride 106 mmol/L (98-107); Glucose 238 mg/dL (74-106); Potassium 3.5 mmol/L (3.5-5.1); Sodium 138 mmol/L (136-145)
[2021-03-27 01:50] LABS: Alanine Aminotransferase 21 U/L (13-56); Aspartate Aminotransferase 8 U/L (15-37); BUN/Creatinine Ratio 21.2; GFR African American 115 mL/min; GFR Non-African American 95 mL/min
[2021-03-27 01:55] LABS: Alkaline Phosphatase 81 U/L (45-117); Bilirubin, Total < 0.1 mg/dL (0.2-1.0); Total Protein 6.2 g/dL (6.4-8.2)
[2021-03-27] MEDS ORDERED: LORazepam 2MG/ML-1ML VIAL ONE (03:51)
[2021-03-27 04:03] LABS: Urine Bacteria FEW /hpf (None Seen); Urine Blood Negative /uL (Negative); Urine Specific Gravity 1.007 (1.001-1.035); Urine WBC 4 /hpf (0 - 5)
[2021-03-27] MEDS: ACETAMINOPHEN 325 MG TAB PO PRN (04:50)
[2021-03-27] MEDS ORDERED: ALEN70TA74 PO (05:05)
[2021-03-27] MEDS ORDERED: PHE100C PO (05:05)
[2021-03-27] MEDS ORDERED: METH2.5T PO (05:05)
[2021-03-27] MEDS ORDERED: GABA300C10 PO (05:05)
[2021-03-27] MEDS ORDERED: DICY10CA12 PO (05:05)
[2021-03-27] MEDS ORDERED: ASPI-543 PO (05:05)
[2021-03-27] MEDS: ACCU-CHEK COMFORT CURVE STRIP VI SCH ×4 (05:50→22:00)
[2021-03-27] MEDS: InsuLIN REG 1unit/0.01ml Soln (100units/ml) SC SCH ×4 (05:50→22:00)
[2021-03-27] MEDS: PHENYTOIN SODIUM 100 MG CAP PO SCH ×3 (05:50→22:00)
[2021-03-27 08:09] LABS: Basophils # (auto) 0.1 10 ^3/uL (0-0.2); Basophils % (auto) 0.8 % (0.0-2.0); Eosinophils # (auto) 0 10 ^3/uL (0-0.8); Eosinophils % (auto) 0.7 % (0.0-7.0); Hematocrit 37.5 % (36.0-46.0); Hemoglobin 11.8 g/dL (12.2-16.2); Lymphocytes # (auto) 1.6 10 ^3/uL (0.4-5.4); Lymphocytes % (auto) 22.1 % (10.0-50.0); Mean Corpuscular Hemoglobin 25.6 pg (28.0-32.0); Mean Corpuscular Hgb Conc. 31.6 g/dL (32.0-36.0); Mean Corpuscular Volume 81.2 fL (80.0-100.0); Monocytes # (auto) 0.6 10 ^3/uL (0-1.3); Neutrophils # (auto) 4.8 10 ^3/uL (1.6-8.6); Neutrophils % (auto) 68.4 % (37.0-80.0); Nucleated Red Blood Cells % 0.1 %; Red Blood Cells 4.62 10^6/uL (4.0-5.20); Red Cell Distribution Width 16.9 % (11.8-14.3); White Blood Cell 7.1 10^3/uL (4.4-10.8)
[2021-03-27 08:28] LABS: Lactic Acid w/Reflex 2.3 mmol/L (0.4-2.0)
[2021-03-27] MEDS: FAMOTIDINE (10MG/ML) 2ML VL IV SCH ×2 (09:41→22:00)
[2021-03-27] MEDS: MULTIPLE VITAMIN TAB PO SCH (09:42)
[2021-03-27] MEDS: ASCORBIC ACID 500 MG TAB PO SCH (09:42)
[2021-03-27] MEDS: ENOXAPARIN SOD 40 MG/0.4 ML SYRINGE SC SCH (09:42)
[2021-03-27] MEDS: predniSONE 20 MG TAB PO SCH (09:42)
[2021-03-27] MEDS: AZITHROMYCIN 500MG/ 250ML 250 ML IV SCH (09:42)
[2021-03-27] MEDS ORDERED: ZINC SULFATE 220mg CAP or TAB PO SCH (10:00)
[2021-03-27] MEDS ORDERED: ASPirin 81 mg TAB PO ONE (11:00)
[2021-03-27] MEDS ORDERED: LISINOPRIL 5 MG TAB PO ONE (11:00)
[2021-03-27] MEDS ORDERED: ATORVASTATIN 20 MG TAB PO ONE (11:00)
[2021-03-27 14:16] LABS: Lactic Acid w/Reflex 4.9 mmol/L (0.4-2.0)
[2021-03-27] MEDS: guaiFENesin-DM 100/10mg/5ml SYR PO PRN (20:13)
[2021-03-27] MEDS: ATORVASTATIN 20 MG TAB PO SCH (22:00)
[2021-03-28] MEDS: ONDANSETRON HCL 4 MG/2 ML VIAL IV PRN ×4 (00:17→22:22)
[2021-03-28] MEDS: MORPHINE SULFATE INJECTION 2 MG/ML SYRG IV PRN ×6 (00:17→22:22)
[2021-03-28] MEDS: diphenhdrAMINE HCL 25 MG CAP PO PRN ×3 (00:20→19:44)
[2021-03-28 05:00] VITALS: BP 101/62
[2021-03-28] MEDS: PHENYTOIN SODIUM 100 MG CAP PO SCH ×3 (06:00→21:22)
[2021-03-28] MEDS: InsuLIN REG 1unit/0.01ml Soln (100units/ml) SC SCH ×4 (06:23→22:00)
[2021-03-28] MEDS: ACCU-CHEK COMFORT CURVE STRIP VI SCH ×4 (06:23→21:29)
[2021-03-28 07:07] LABS: Calcium 8.1 mg/dL (8.5-10.1); Potassium 4.1 mmol/L (3.5-5.1)
[2021-03-28 07:09] LABS: BUN/Creatinine Ratio 18.8
[2021-03-28 07:19] LABS: Basophils # (auto) 0 10 ^3/uL (0-0.2); Basophils % (auto) 0.3 % (0.0-2.0); Eosinophils # (auto) 0.1 10 ^3/uL (0-0.8); Hemoglobin 11.9 g/dL (12.2-16.2); Lymphocytes # (auto) 2.5 10 ^3/uL (0.4-5.4); Monocytes # (auto) 0.7 10 ^3/uL (0-1.3); Nucleated Red Blood Cells % 0.2 %
[2021-03-28 07:27] LABS: Hematocrit 36.2 % (36.0-46.0); Lymphocytes % (auto) 31.4 % (10.0-50.0); Mean Corpuscular Hemoglobin 26.4 pg (28.0-32.0); Mean Corpuscular Hgb Conc. 32.9 g/dL (32.0-36.0); Mean Corpuscular Volume 80.2 fL (80.0-100.0); Monocytes % (auto) 8.4 % (0.0-12.0); Neutrophils # (auto) 4.8 10 ^3/uL (1.6-8.6); Neutrophils % (auto) 58.9 % (37.0-80.0); Red Blood Cells 4.51 10^6/uL (4.0-5.20); Red Cell Distribution Width 17.4 % (11.8-14.3); White Blood Cell 8.1 10^3/uL (4.4-10.8)
[2021-03-28 09:00] VITALS: BP 110/65
[2021-03-28] MEDS: predniSONE 20 MG TAB PO SCH (10:07)
[2021-03-28] MEDS: MULTIPLE VITAMIN TAB PO SCH (10:07)
[2021-03-28] MEDS: FAMOTIDINE (10MG/ML) 2ML VL IV SCH ×2 (10:07→21:22)
[2021-03-28] MEDS: ASPirin 81 mg TAB PO SCH (10:07)
[2021-03-28] MEDS: AZITHROMYCIN 500MG/ 250ML 250 ML IV SCH (10:07)
[2021-03-28] MEDS: LISINOPRIL 5 MG TAB PO SCH (10:07)
[2021-03-28] MEDS: ENOXAPARIN SOD 40 MG/0.4 ML SYRINGE SC SCH (10:08)
[2021-03-28] MEDS: ACETAMINOPHEN 325 MG TAB PO PRN (10:54)
[2021-03-28 13:00] VITALS: BP 143/86
[2021-03-28 17:06] VITALS: BP 132/95
[2021-03-28] MEDS: ATORVASTATIN 20 MG TAB PO SCH (21:22)
[2021-03-28] MEDS: guaiFENesin-DM 100/10mg/5ml SYR PO PRN (21:39)
[2021-03-28 22:00] VITALS: BP_SYST 127; BP_SYST 136; BP_DIAS 69; BP_DIAS 86
[2021-03-29] MEDS: MORPHINE SULFATE INJECTION 2 MG/ML SYRG IV PRN ×5 (02:14→22:09)
[2021-03-29] MEDS: ONDANSETRON HCL 4 MG/2 ML VIAL IV PRN ×5 (02:15→22:09)
[2021-03-29] MEDS: diphenhdrAMINE HCL 25 MG CAP PO PRN ×2 (02:56→22:09)
[2021-03-29 05:00] VITALS: BP 113/76
[2021-03-29] MEDS: PHENYTOIN SODIUM 100 MG CAP PO SCH ×3 (06:00→22:08)
[2021-03-29] MEDS: ACCU-CHEK COMFORT CURVE STRIP VI SCH ×4 (06:31→22:00)
[2021-03-29] MEDS: InsuLIN REG 1unit/0.01ml Soln (100units/ml) SC SCH ×4 (07:00→22:00)
[2021-03-29 08:01] LABS: Basophils # (auto) 0.1 10 ^3/uL (0-0.2); Basophils % (auto) 0.9 % (0.0-2.0); Eosinophils # (auto) 0.1 10 ^3/uL (0-0.8); Eosinophils % (auto) 1.2 % (0.0-7.0); Hematocrit 36.5 % (36.0-46.0); Hemoglobin 12.1 g/dL (12.2-16.2); Lymphocytes # (auto) 2.2 10 ^3/uL (0.4-5.4); Lymphocytes % (auto) 26.5 % (10.0-50.0); Mean Corpuscular Hemoglobin 26.6 pg (28.0-32.0); Mean Corpuscular Hgb Conc. 33.2 g/dL (32.0-36.0); Mean Corpuscular Volume 80.1 fL (80.0-100.0); Monocytes # (auto) 0.7 10 ^3/uL (0-1.3); Monocytes % (auto) 8.1 % (0.0-12.0); Neutrophils # (auto) 5.3 10 ^3/uL (1.6-8.6); Neutrophils % (auto) 63.3 % (37.0-80.0); Nucleated Red Blood Cells % 0.1 %; Red Blood Cells 4.56 10^6/uL (4.0-5.20); Red Cell Distribution Width 17.3 % (11.8-14.3); White Blood Cell 8.5 10^3/uL (4.4-10.8)
[2021-03-29 08:03] LABS: INR 0.94 (0.9-1.15); Partial Thromboplastin Time 20.2 sec (23.6-33.0)
[2021-03-29 08:08] LABS: Albumin 3.3 g/dL (3.4-5.0); Calcium 8.5 mg/dL (8.5-10.1); Magnesium 2.5 mg/dL (1.6-2.6)
[2021-03-29 08:13] LABS: BUN/Creatinine Ratio 16.9; Bilirubin, Total 0.1 mg/dL (0.2-1.0); Phosphorus 3.5 mg/dL (2.5-4.90); Total Protein 6.8 g/dL (6.4-8.2)
[2021-03-29 09:00] VITALS: BP 121/55
[2021-03-29] MEDS ORDERED: HEPARIN IN NS 1000Units/500mL 0 ML ONE (09:44)
[2021-03-29] MEDS ORDERED: LIDOCAINE 2%HCL (LOCAL ANESTH.) INJ 20ML MDV ONE ×2 (09:44→12:11)
[2021-03-29] MEDS ORDERED: IODIXANOL 320MG/ML 100ML BTL IV ONE (09:44)
[2021-03-29] MEDS: ENOXAPARIN SOD 40 MG/0.4 ML SYRINGE SC SCH (10:00)
[2021-03-29] MEDS: MULTIPLE VITAMIN TAB PO SCH (10:00)
[2021-03-29] MEDS: AZITHROMYCIN 500MG/ 250ML 250 ML IV SCH (10:00)
[2021-03-29] MEDS: LISINOPRIL 5 MG TAB PO SCH (10:00)
[2021-03-29] MEDS: ASPirin 81 mg TAB PO SCH (10:00)
[2021-03-29] MEDS: predniSONE 20 MG TAB PO SCH (10:00)
[2021-03-29] MEDS ORDERED: HEPARIN SODIUM (PORCINE) 5000 UNITS/ML 1ML VIAL ONE (11:56)
[2021-03-29] MEDS ORDERED: MIDAZOLAM HCL 2MG/2ML 2ml VIAL (1mg/ml) ONE (11:56)
[2021-03-29] MEDS ORDERED: SODIUM CHL 0.9% 0 ML ONE (11:56)
[2021-03-29] MEDS ORDERED: ANGIOMAX 250 MG VIAL IV ONE (11:56)
[2021-03-29] MEDS ORDERED: VERAPAMIL 2.5MG/ML INJ 2ML VIAL IV ONE (11:56)
[2021-03-29] MEDS ORDERED: fentaNYL CITRATE 100 MCG/2 ML VL ONE (11:56)
[2021-03-29 13:00] VITALS: BP 134/56
[2021-03-29 16:22] VITALS: BP 116/65
[2021-03-29] MEDS: ACETAMINOPHEN 325 MG TAB PO PRN ×2 (17:19→23:43)
[2021-03-29 20:00] VITALS: BP 110/65
[2021-03-29 22:00] VITALS: BP 102/73
[2021-03-29] MEDS: FAMOTIDINE 20 MG TAB PO SCH (22:08)
[2021-03-29] MEDS: ATORVASTATIN 20 MG TAB PO SCH (22:08)
[2021-03-29] MEDS: guaiFENesin-DM 100/10mg/5ml SYR PO PRN (23:42)
[2021-03-30] MEDS: ACCU-CHEK COMFORT CURVE STRIP VI SCH ×4 (04:31→22:00)
[2021-03-30] MEDS: InsuLIN REG 1unit/0.01ml Soln (100units/ml) SC SCH ×4 (04:31→22:00)
[2021-03-30 05:00] VITALS: BP 130/74
[2021-03-30] MEDS: PHENYTOIN SODIUM 100 MG CAP PO SCH ×3 (06:14→21:28)
[2021-03-30 08:00] VITALS: BP 132/68
[2021-03-30 09:00] VITALS: BP 132/68
[2021-03-30] MEDS ORDERED: FUROSEMIDE 20 MG/2 ML VIAL IV ONE (10:15)
[2021-03-30] MEDS ORDERED: cefTRIAXone 1GM/50ML D5W 50 ML IV ONE (10:15)
[2021-03-30] MEDS ORDERED: POTASSIUM CHL 20 Meq TABLET PO ONE (10:15)
[2021-03-30] MEDS: predniSONE 20 MG TAB PO SCH (10:56)
[2021-03-30] MEDS: AZITHROMYCIN 500MG/ 250ML 250 ML IV SCH (10:56)
[2021-03-30] MEDS: ASPirin 81 mg TAB PO SCH (10:56)
[2021-03-30] MEDS: MULTIPLE VITAMIN TAB PO SCH (10:57)
[2021-03-30] MEDS: LISINOPRIL 5 MG TAB PO SCH (10:57)
[2021-03-30] MEDS: ENOXAPARIN SOD 40 MG/0.4 ML SYRINGE SC SCH (10:57)
[2021-03-30] MEDS: FAMOTIDINE 20 MG TAB PO SCH ×2 (10:57→21:28)
[2021-03-30] MEDS: MORPHINE SULFATE INJECTION 2 MG/ML SYRG IV PRN ×4 (10:58→22:55)
[2021-03-30] MEDS: ONDANSETRON HCL 4 MG/2 ML VIAL IV PRN ×4 (10:58→22:56)
[2021-03-30] MEDS: guaiFENesin-DM 100/10mg/5ml SYR PO PRN ×2 (11:54→21:28)
[2021-03-30 15:00] VITALS: BP 110/61
[2021-03-30] MEDS: diphenhdrAMINE HCL 25 MG CAP PO PRN ×2 (16:51→21:28)
[2021-03-30 20:10] VITALS: BP 118/85
[2021-03-30] MEDS: ATORVASTATIN 20 MG TAB PO SCH (21:28)
[2021-03-30 22:00] VITALS: BP 118/85
[2021-03-31] MEDS: MORPHINE SULFATE INJECTION 2 MG/ML SYRG IV PRN ×3 (03:02→12:04)
[2021-03-31] MEDS: ONDANSETRON HCL 4 MG/2 ML VIAL IV PRN ×2 (03:02→07:19)
[2021-03-31 05:00] VITALS: BP 102/46
[2021-03-31 05:51] LABS: Basophils # (auto) 0 10 ^3/uL (0-0.2); Basophils % (auto) 0.3 % (0.0-2.0); Eosinophils # (auto) 0.1 10 ^3/uL (0-0.8); Neutrophils # (auto) 4.5 10 ^3/uL (1.6-8.6); White Blood Cell 7.5 10^3/uL (4.4-10.8)
[2021-03-31 05:54] LABS: Hematocrit 34.6 % (36.0-46.0); Hemoglobin 11.6 g/dL (12.2-16.2); Lymphocytes # (auto) 1.9 10 ^3/uL (0.4-5.4); Lymphocytes % (auto) 24.9 % (10.0-50.0); Mean Corpuscular Hemoglobin 26.4 pg (28.0-32.0); Mean Corpuscular Hgb Conc. 33.4 g/dL (32.0-36.0); Mean Corpuscular Volume 79.1 fL (80.0-100.0); Monocytes # (auto) 0.9 10 ^3/uL (0-1.3); Monocytes % (auto) 12.6 % (0.0-12.0); Neutrophils % (auto) 60.2 % (37.0-80.0); Red Blood Cells 4.38 10^6/uL (4.0-5.20); Red Cell Distribution Width 16.9 % (11.8-14.3)
[2021-03-31 06:19] LABS: BUN/Creatinine Ratio 24.1; Calcium 8.7 mg/dL (8.5-10.1)
[2021-03-31] MEDS: PHENYTOIN SODIUM 100 MG CAP PO SCH ×2 (06:51→14:00)
[2021-03-31] MEDS: ACCU-CHEK COMFORT CURVE STRIP VI SCH ×2 (06:51→12:08)
[2021-03-31] MEDS: InsuLIN REG 1unit/0.01ml Soln (100units/ml) SC SCH ×2 (06:52→12:09)
[2021-03-31] MEDS: ACETAMINOPHEN 325 MG TAB PO PRN (06:57)
[2021-03-31] MEDS: ENOXAPARIN SOD 40 MG/0.4 ML SYRINGE SC SCH (08:21)
[2021-03-31] MEDS: predniSONE 20 MG TAB PO SCH (08:22)
[2021-03-31] MEDS: ASPirin 81 mg TAB PO SCH (08:22)
[2021-03-31] MEDS: FAMOTIDINE 20 MG TAB PO SCH (08:22)
[2021-03-31] MEDS ORDERED: THROAT LOZENGES(CEPASTAT) MT PRN (08:30)
[2021-03-31] MEDS ORDERED: cefTRIAXone 1GM/50ML D5W 50 ML IV SCH (09:00)
[2021-03-31 09:20] VITALS: BP 150/79
[2021-03-31] MEDS: MULTIPLE VITAMIN TAB PO SCH (09:30)
[2021-03-31] MEDS: AZITHROMYCIN 500MG/ 250ML 250 ML IV SCH (09:45)
[2021-03-31] MEDS: LISINOPRIL 5 MG TAB PO SCH (10:00)
[2021-03-31 13:00] VITALS: BP 109/72
== END 2021-03-31 15:38 | disposition home or self-care (01) | DRG 280 ==
LOC: ER 15:53 → OVERFLOW 03-27 00:27 → CENTRAL 03-27 03:20 → TELE-CENTR 03-27 22:01
PROVIDERS: ADMIT Nurse Practitioner Family; ATTEND Internal Medicine
PROC: B211YZZ Fluoroscopy of Multiple Coronary Arteries using Other Contrast (ICD-10-PCS; principal; 2021-03-29)
PROC: 4A023N7 Measurement of Cardiac Sampling and Pressure, Left Heart, Percutaneous Approach (ICD-10-PCS; 2021-03-29)
DX: I21.4 Non-ST elevation (NSTEMI) myocardial infarction (principal); J18.9 Pneumonia, unspecified organism; J96.01 Acute respiratory failure with hypoxia; I50.31 Acute diastolic (congestive) heart failure; I13.0 Hypertensive heart and chronic kidney disease with heart failure and stage 1 through stage 4 chronic kidney disease, or unspecified chronic kidney disease; M32.9 Systemic lupus erythematosus, unspecified; E78.5 Hyperlipidemia, unspecified; G40.909 Epilepsy, unspecified, not intractable, without status epilepticus; E11.65 Type 2 diabetes mellitus with hyperglycemia; E11.22 Type 2 diabetes mellitus with diabetic chronic kidney disease; Z20.822 Contact with and (suspected) exposure to COVID-19; N18.9 Chronic kidney disease, unspecified; E66.9 Obesity, unspecified; Z88.1 Allergy status to other antibiotic agents; Z88.0 Allergy status to penicillin; Z88.8 Allergy status to other drugs, medicaments and biological substances; I25.2 Old myocardial infarction; Z80.0 Family history of malignant neoplasm of digestive organs; Z80.1 Family history of malignant neoplasm of trachea, bronchus and lung; Z82.3 Family history of stroke; Z86.73 Personal history of transient ischemic attack (TIA), and cerebral infarction without residual deficits; Z82.49 Family history of ischemic heart disease and other diseases of the circulatory system; Z83.3 Family history of diabetes mellitus; Z86.16 Personal history of COVID-19; Z90.710 Acquired absence of both cervix and uterus; Z90.49 Acquired absence of other specified parts of digestive tract; Z68.31 Body mass index [BMI] 31.0-31.9, adult
CPT/HCPCS: 36415; 71045; 71046; 80048; 80053; 80185; 81001; 82962; 83036; 83605; 83735; 83880; 84100; 84484; 85025; 85610; 85652; 85730; 87040; 87426; 93005; 93306; 93454; 93970; 96365; 96367; 96375; 97163; 99152; G0378; J0696; J1815; J2250; J2405; J3490; Q9967

== ENCOUNTER → 2021-04-06 | Outpatient (CLI) | payer MEDICARE, MEDICAID ==
[~2021-04-06] MED LIST changes: +ALEN70TA74 PO; +ASPI-543 PO; +DICY10CA12 PO; -GABA100C9 PO; +GABA300C10 PO; +IOHEXOL 350 MG/ML 100ML IJ ONE; +METH2.5T PO
== END | disposition home or self-care (01) ==
LOC: XYW 16:37
DX: I77.89 Other specified disorders of arteries and arterioles (principal); I51.7 Cardiomegaly; M47.819 Spondylosis without myelopathy or radiculopathy, site unspecified; K44.9 Diaphragmatic hernia without obstruction or gangrene
CPT/HCPCS: 71275; Q9967

== ENCOUNTER 2021-04-26 16:39 | Emergency (ER) | payer MEDICARE, MEDICAID ==
[~2021-04-26] VITALS: Ht 157.5 cm; Wt 82.1 kg
[~2021-04-26 16:39] MED LIST changes: -IOHEXOL 350 MG/ML 100ML IJ ONE
[2021-04-26] MEDS ORDERED: HYDROmorphone HCL 2 MG/ML VL IM ONE (17:00)
[2021-04-26 18:17] LABS: Basophils # (auto) 0.2 10 ^3/uL (0-0.2); Eosinophils # (auto) 0 10 ^3/uL (0-0.8); Eosinophils % (auto) 0.2 % (0.0-7.0); Lymphocytes # (auto) 2.4 10 ^3/uL (0.4-5.4); Lymphocytes % (auto) 18.2 % (10.0-50.0); Nucleated Red Blood Cells % 0.1 %
[2021-04-26 18:19] LABS: Basophils % (auto) 1.2 % (0.0-2.0); Hematocrit 35.1 % (36.0-46.0); Hemoglobin 11.3 g/dL (12.2-16.2); Mean Corpuscular Hemoglobin 24.3 pg (28.0-32.0); Mean Corpuscular Hgb Conc. 32.1 g/dL (32.0-36.0); Mean Corpuscular Volume 75.5 fL (80.0-100.0); Monocytes # (auto) 1.1 10 ^3/uL (0-1.3); Monocytes % (auto) 8.2 % (0.0-12.0); Neutrophils # (auto) 9.6 10 ^3/uL (1.6-8.6); Neutrophils % (auto) 72.2 % (37.0-80.0); Red Blood Cells 4.65 10^6/uL (4.0-5.20); Red Cell Distribution Width 17.7 % (11.8-14.3); White Blood Cell 13.3 10^3/uL (4.4-10.8)
[2021-04-26 18:29] LABS: Albumin 3.3 g/dL (3.4-5.0); Calcium 8.2 mg/dL (8.5-10.1); Magnesium 2.4 mg/dL (1.6-2.6); Potassium 3.2 mmol/L (3.5-5.1)
[2021-04-26 18:35] LABS: BUN/Creatinine Ratio 20.6; Bilirubin, Total 0.2 mg/dL (0.2-1.0); Total Protein 6.9 g/dL (6.4-8.2)
[2021-04-26] MEDS ORDERED: POTASSIUM CHL 20 Meq TABLET PO ONE (19:00)
[2021-04-26 20:55] VITALS: BP 148/63
== END 2021-04-26 21:11 | disposition home or self-care (01) ==
LOC: ER 16:39
DX: R07.89 Other chest pain (principal); E87.6 Hypokalemia; R11.2 Nausea with vomiting, unspecified; E11.9 Type 2 diabetes mellitus without complications; E78.5 Hyperlipidemia, unspecified; Z86.73 Personal history of transient ischemic attack (TIA), and cerebral infarction without residual deficits; Z90.89 Acquired absence of other organs; Z90.710 Acquired absence of both cervix and uterus; Z88.5 Allergy status to narcotic agent; Z88.0 Allergy status to penicillin; Z88.8 Allergy status to other drugs, medicaments and biological substances; Z79.899 Other long term (current) drug therapy; Z79.82 Long term (current) use of aspirin
CPT/HCPCS: 36415; 71046; 80053; 83735; 84484; 85025; 93005; 96372; 99285; J1170

== ENCOUNTER 2021-06-01 16:26 | Inpatient (IN) | payer MEDICARE, MEDICAID ==
[~2021-06-01] VITALS: Ht 157.5 cm; Wt 85.0 kg
[~2021-06-01 16:26] MED LIST changes: -ASPirin 81 mg TAB PO ONE; -methylPREDNISolone SOD SUCC 125 MG/2 ML VL IM ONE
[2021-06-01] MEDS ORDERED: ALBUTEROL SULF HFA 90MCG INH 200DOSE IN PRN (16:30)
[2021-06-01] MEDS ORDERED: NITROGLYCERIN 0.4 MG SL TAB SL PRN (16:30)
[2021-06-01] MEDS ORDERED: methylPREDNISolone SOD SUCC 125 MG/2 ML VL IV ONE (16:45)
[2021-06-01] MEDS ORDERED: DEXTROSE (50%) 50ML SYRG IV PRN (16:45)
[2021-06-01] MEDS ORDERED: OSELTAMIVIR 75 MG CAP PO ONE (18:00)
[2021-06-01] MEDS ORDERED: cefTRIAXone 1GM/50ML D5W 50 ML IV ONE (18:15)
[2021-06-01 20:00] VITALS: BP 127/50
[2021-06-01] MEDS: InsuLIN REG 1unit/0.01ml Soln (100units/ml) SC SCH (20:00)
[2021-06-01] MEDS ORDERED: HYDROcodone-ACET 5/325MG TAB PO ONE (20:15)
[2021-06-01] MEDS: ACCU-CHEK COMFORT CURVE STRIP VI SCH (20:28)
[2021-06-01 22:00] VITALS: BP 127/50
[2021-06-01] MEDS ORDERED: METHOTREXATE 2.5 MG TAB PO SCH (22:00)
[2021-06-01] MEDS: INSULIN LANTUS (GLARGINE) 1 /0.01ml (100units/ml) SC SCH (22:00)
[2021-06-01] MEDS ORDERED: BUDESONIDE (INHALATION) 180 MCG IH IN SCH (22:00)
[2021-06-01] MEDS: PHENYTOIN SODIUM 100 MG CAP PO SCH (22:44)
[2021-06-01] MEDS: LISINOPRIL 5 MG TAB PO SCH (22:45)
[2021-06-01] MEDS: GABAPENTIN 300 MG CAP PO SCH (22:45)
[2021-06-01] MEDS: APIXABAN 5 MG TAB PO SCH (22:45)
[2021-06-01] MEDS: AZITHROMYCIN 500MG/ 250ML 250 ML IV SCH (23:35)
[2021-06-02] MEDS ORDERED: HYDROcodone-ACET 5/325MG TAB PO PRN
[2021-06-02] MEDS ORDERED: ONDANSETRON HCL 4 MG/2 ML VIAL IV PRN (00:15)
[2021-06-02] MEDS ORDERED: LORazepam 0.5 MG TAB PO PRN (00:15)
[2021-06-02] MEDS ORDERED: ACETAMINOPHEN 500 MG TAB PO PRN (00:15)
[2021-06-02] MEDS: ACCU-CHEK COMFORT CURVE STRIP VI SCH ×7 (00:20→23:45)
[2021-06-02] MEDS: InsuLIN REG 1unit/0.01ml Soln (100units/ml) SC SCH ×7 (00:22→23:44)
[2021-06-02] MEDS: MORPHINE SULFATE INJECTION 2 MG/ML SYRG IV PRN ×4 (00:35→20:10)
[2021-06-02 04:06] LABS: Urine Bacteria FEW /hpf (None Seen); Urine Blood Negative /uL (Negative); Urine Mucus FEW (None Seen); Urine Specific Gravity 1.015 (1.001-1.035); Urine WBC 1 /hpf (0 - 5)
[2021-06-02 05:00] VITALS: BP 131/60
[2021-06-02] MEDS: CLINDAMYCIN 600MG IV 50 ML IV SCH ×3 (05:50→23:09)
[2021-06-02 07:26] LABS: Basophils # (auto) 0 10 ^3/uL (0-0.2); Basophils % (auto) 0.4 % (0.0-2.0); Eosinophils # (auto) 0 10 ^3/uL (0-0.8); Eosinophils % (auto) 0.4 % (0.0-7.0); Hemoglobin 11.3 g/dL (12.2-16.2); Lymphocytes # (auto) 1.5 10 ^3/uL (0.4-5.4); Lymphocytes % (auto) 24.8 % (10.0-50.0); Mean Corpuscular Hemoglobin 23.8 pg (28.0-32.0); Mean Corpuscular Hgb Conc. 32.3 g/dL (32.0-36.0); Mean Corpuscular Volume 73.5 fL (80.0-100.0); Monocytes # (auto) 0.5 10 ^3/uL (0-1.3); Monocytes % (auto) 8.8 % (0.0-12.0); Neutrophils # (auto) 4.1 10 ^3/uL (1.6-8.6); Neutrophils % (auto) 65.6 % (37.0-80.0); Nucleated Red Blood Cells % 0.2 %; Red Blood Cells 4.77 10^6/uL (4.0-5.20); Red Cell Distribution Width 19.5 % (11.8-14.3); White Blood Cell 6.2 10^3/uL (4.4-10.8)
[2021-06-02 07:40] LABS: Albumin 2.9 g/dL (3.4-5.0); Potassium 3.9 mmol/L (3.5-5.1)
[2021-06-02 07:46] LABS: Bilirubin, Total 0.2 mg/dL (0.2-1.0); Total Protein 5.6 g/dL (6.4-8.2)
[2021-06-02 08:05] VITALS: BP 122/75
[2021-06-02] MEDS: HYDROcodone-ACET 5/325MG TAB PO PRN ×3 (08:05→23:45)
[2021-06-02] MEDS ORDERED: CHOLECALCIFEROL (VITD3) 2,000 UNIT CAP/TAB PO SCH (10:00)
[2021-06-02] MEDS ORDERED: ZINC SULFATE 220mg CAP or TAB PO SCH (10:00)
[2021-06-02] MEDS: methylPREDNISolone SOD SUCC 40 MG/ML VL IV SCH ×2 (10:06→23:09)
[2021-06-02] MEDS: ASPirin-EC 81 mg tab PO SCH (10:06)
[2021-06-02] MEDS: PHENYTOIN SODIUM 100 MG CAP PO SCH ×2 (10:06→22:48)
[2021-06-02] MEDS: OSELTAMIVIR 75 MG CAP PO SCH ×2 (10:07→22:49)
[2021-06-02] MEDS: ASCORBIC ACID 1,000 MG TAB PO SCH (10:07)
[2021-06-02] MEDS: APIXABAN 5 MG TAB PO SCH ×2 (10:07→22:48)
[2021-06-02] MEDS: LISINOPRIL 5 MG TAB PO SCH ×2 (10:07→22:49)
[2021-06-02] MEDS: CHOLECALCIFEROL (VITD3) 2,000 UNIT CAP/TAB PO SCH (10:08)
[2021-06-02] MEDS: GABAPENTIN 300 MG CAP PO SCH ×2 (10:08→22:48)
[2021-06-02] MEDS: ALBUTEROL SULF 2.5 MG/0.5ML(0.5%) NEB SOLN NEB PRN ×3 (12:29→22:36)
[2021-06-02 13:00] VITALS: BP 132/76
[2021-06-02 17:00] VITALS: BP 106/68
[2021-06-02] MEDS: guaiFENesin-DM 100/10mg/5ml SYR PO PRN (17:07)
[2021-06-02] MEDS: cefTRIAXone 1GM/50ML D5W 50 ML IV SCH (17:07)
[2021-06-02] MEDS ORDERED: FUROSEMIDE 20 MG/2 ML VIAL IV ONE (17:30)
[2021-06-02] MEDS: AZITHROMYCIN 500MG/ 250ML 250 ML IV SCH (20:13)
[2021-06-02] MEDS: INSULIN LANTUS (GLARGINE) 1 /0.01ml (100units/ml) SC SCH (22:55)
[2021-06-03] MEDS: ALBUTEROL SULF 2.5 MG/0.5ML(0.5%) NEB SOLN NEB PRN ×2 (02:22→11:33)
[2021-06-03] MEDS: InsuLIN REG 1unit/0.01ml Soln (100units/ml) SC SCH ×5 (04:30→21:47)
[2021-06-03] MEDS: ACCU-CHEK COMFORT CURVE STRIP VI SCH ×5 (04:30→21:45)
[2021-06-03] MEDS: HYDROcodone-ACET 5/325MG TAB PO PRN ×3 (05:32→20:44)
[2021-06-03] MEDS: CLINDAMYCIN 600MG IV 50 ML IV SCH ×3 (05:38→22:26)
[2021-06-03 06:55] LABS: Basophils # (auto) 0 10 ^3/uL (0-0.2); Basophils % (auto) 0.4 % (0.0-2.0); Eosinophils # (auto) 0 10 ^3/uL (0-0.8); Eosinophils % (auto) 0.5 % (0.0-7.0); Hematocrit 38.1 % (36.0-46.0); Hemoglobin 12.3 g/dL (12.2-16.2); Lymphocytes # (auto) 1.6 10 ^3/uL (0.4-5.4); Lymphocytes % (auto) 21.2 % (10.0-50.0); Mean Corpuscular Hgb Conc. 32.3 g/dL (32.0-36.0); Mean Corpuscular Volume 74.2 fL (80.0-100.0); Monocytes # (auto) 0.8 10 ^3/uL (0-1.3); Monocytes % (auto) 11.1 % (0.0-12.0); Neutrophils # (auto) 5.1 10 ^3/uL (1.6-8.6); Neutrophils % (auto) 66.8 % (37.0-80.0); Nucleated Red Blood Cells % 0.2 %; Red Blood Cells 5.14 10^6/uL (4.0-5.20); Red Cell Distribution Width 19.7 % (11.8-14.3); White Blood Cell 7.6 10^3/uL (4.4-10.8)
[2021-06-03 07:14] LABS: Albumin 3.6 g/dL (3.4-5.0); Calcium 8.5 mg/dL (8.5-10.1)
[2021-06-03 07:28] LABS: BUN/Creatinine Ratio 20.3; Bilirubin, Total 0.2 mg/dL (0.2-1.0); CRP High Sensitivity 1.92 mg/dL (< 0.3); Magnesium 3.5 mg/dL (1.6-2.6); Total Protein 6.7 g/dL (6.4-8.2)
[2021-06-03] MEDS: MORPHINE SULFATE INJECTION 2 MG/ML SYRG IV PRN ×3 (08:24→21:42)
[2021-06-03] MEDS: FUROSEMIDE 20 MG/2 ML VIAL IV SCH (09:47)
[2021-06-03] MEDS: CHOLECALCIFEROL (VITD3) 2,000 UNIT CAP/TAB PO SCH (09:47)
[2021-06-03] MEDS: OSELTAMIVIR 75 MG CAP PO SCH ×2 (09:47→21:46)
[2021-06-03] MEDS: methylPREDNISolone SOD SUCC 40 MG/ML VL IV SCH ×2 (09:47→21:46)
[2021-06-03] MEDS: APIXABAN 5 MG TAB PO SCH ×2 (09:47→21:46)
[2021-06-03] MEDS: ASPirin-EC 81 mg tab PO SCH (09:47)
[2021-06-03] MEDS: GABAPENTIN 300 MG CAP PO SCH ×2 (09:47→21:46)
[2021-06-03] MEDS: LISINOPRIL 5 MG TAB PO SCH ×2 (09:48→21:46)
[2021-06-03] MEDS: PHENYTOIN SODIUM 100 MG CAP PO SCH ×2 (09:48→21:46)
[2021-06-03] MEDS: ASCORBIC ACID 1,000 MG TAB PO SCH (09:48)
[2021-06-03] MEDS ORDERED: FUROSEMIDE 20 MG/2 ML VIAL IV SCH (10:00)
[2021-06-03] MEDS ORDERED: METHOTREXATE 2.5 MG TAB PO SCH (10:00)
[2021-06-03] MEDS ORDERED: IPRATROPIUM BROM 0.5 MG/2.5ML INH SOL NEB PRN ×2 (12:15→13:15)
[2021-06-03 12:46] VITALS: BP 131/68
[2021-06-03] MEDS ORDERED: ALBUTEROL SULF 2.5 MG/0.5ML(0.5%) NEB SOLN NEB SCH (16:00)
[2021-06-03] MEDS ORDERED: IPRATROPIUM BROM 0.5 MG/2.5ML INH SOL NEB SCH (16:00)
[2021-06-03 17:00] VITALS: BP 121/59
[2021-06-03] MEDS: cefTRIAXone 1GM/50ML D5W 50 ML IV SCH (17:59)
[2021-06-03] MEDS: ALBUTEROL SULF 2.5 MG/0.5ML(0.5%) NEB SOLN NEB SCH ×2 (19:29→22:58)
[2021-06-03] MEDS: IPRATROPIUM BROM 0.5 MG/2.5ML INH SOL NEB SCH ×2 (19:30→22:58)
[2021-06-03] MEDS: AZITHROMYCIN 500MG/ 250ML 250 ML IV SCH (20:00)
[2021-06-03 21:43] VITALS: BP 112/69
[2021-06-03] MEDS: INSULIN LANTUS (GLARGINE) 1 /0.01ml (100units/ml) SC SCH (21:54)
[2021-06-04] MEDS: InsuLIN REG 1unit/0.01ml Soln (100units/ml) SC SCH ×6 (01:00→20:53)
[2021-06-04] MEDS: ALBUTEROL SULF 2.5 MG/0.5ML(0.5%) NEB SOLN NEB SCH ×6 (03:12→22:12)
[2021-06-04] MEDS: IPRATROPIUM BROM 0.5 MG/2.5ML INH SOL NEB SCH ×6 (03:12→22:12)
[2021-06-04] MEDS: MORPHINE SULFATE INJECTION 2 MG/ML SYRG IV PRN ×4 (04:15→20:53)
[2021-06-04] MEDS: ACCU-CHEK COMFORT CURVE STRIP VI SCH ×6 (04:39→20:52)
[2021-06-04] MEDS: HYDROcodone-ACET 5/325MG TAB PO PRN ×3 (05:19→22:54)
[2021-06-04] MEDS: CLINDAMYCIN 600MG IV 50 ML IV SCH ×3 (05:54→21:30)
[2021-06-04 09:00] VITALS: BP 106/61
[2021-06-04] MEDS: LISINOPRIL 5 MG TAB PO SCH ×2 (10:34→21:31)
[2021-06-04] MEDS: ASPirin-EC 81 mg tab PO SCH (10:34)
[2021-06-04] MEDS: PHENYTOIN SODIUM 100 MG CAP PO SCH ×2 (10:34→21:31)
[2021-06-04] MEDS: GABAPENTIN 300 MG CAP PO SCH ×2 (10:34→21:31)
[2021-06-04] MEDS: CHOLECALCIFEROL (VITD3) 2,000 UNIT CAP/TAB PO SCH (10:34)
[2021-06-04] MEDS: ASCORBIC ACID 1,000 MG TAB PO SCH (10:34)
[2021-06-04] MEDS: OSELTAMIVIR 75 MG CAP PO SCH ×2 (10:35→21:31)
[2021-06-04] MEDS: APIXABAN 5 MG TAB PO SCH ×2 (10:35→21:31)
[2021-06-04] MEDS: methylPREDNISolone SOD SUCC 40 MG/ML VL IV SCH ×2 (10:35→21:30)
[2021-06-04] MEDS: FUROSEMIDE 20 MG/2 ML VIAL IV SCH (10:35)
[2021-06-04 13:00] VITALS: BP 108/53
[2021-06-04 17:01] VITALS: BP 109/58
[2021-06-04] MEDS: cefTRIAXone 1GM/50ML D5W 50 ML IV SCH (19:29)
[2021-06-04] MEDS: AZITHROMYCIN 500MG/ 250ML 250 ML IV SCH (20:52)
[2021-06-04] MEDS: INSULIN LANTUS (GLARGINE) 1 /0.01ml (100units/ml) SC SCH (21:35)
[2021-06-04 22:00] VITALS: BP 124/54
[2021-06-05] MEDS: ACCU-CHEK COMFORT CURVE STRIP VI SCH ×5 (00:08→16:00)
[2021-06-05] MEDS: InsuLIN REG 1unit/0.01ml Soln (100units/ml) SC SCH ×5 (00:15→16:00)
[2021-06-05] MEDS: ALBUTEROL SULF 2.5 MG/0.5ML(0.5%) NEB SOLN NEB SCH ×4 (01:57→14:19)
[2021-06-05] MEDS: IPRATROPIUM BROM 0.5 MG/2.5ML INH SOL NEB SCH ×4 (01:57→14:19)
[2021-06-05] MEDS: MORPHINE SULFATE INJECTION 2 MG/ML SYRG IV PRN ×3 (03:33→16:51)
[2021-06-05] MEDS: guaiFENesin-DM 100/10mg/5ml SYR PO PRN (03:34)
[2021-06-05 05:00] VITALS: BP 112/50
[2021-06-05] MEDS: CLINDAMYCIN 600MG IV 50 ML IV SCH ×2 (06:58→14:00)
[2021-06-05] MEDS: HYDROcodone-ACET 5/325MG TAB PO PRN (07:16)
[2021-06-05 08:12] VITALS: BP 117/61
[2021-06-05] MEDS: methylPREDNISolone SOD SUCC 40 MG/ML VL IV SCH (10:14)
[2021-06-05] MEDS: FUROSEMIDE 20 MG/2 ML VIAL IV SCH (10:15)
[2021-06-05] MEDS: ASPirin-EC 81 mg tab PO SCH (10:15)
[2021-06-05] MEDS: LISINOPRIL 5 MG TAB PO SCH (10:16)
[2021-06-05] MEDS: GABAPENTIN 300 MG CAP PO SCH (10:16)
[2021-06-05] MEDS: ASCORBIC ACID 1,000 MG TAB PO SCH (10:16)
[2021-06-05] MEDS: CHOLECALCIFEROL (VITD3) 2,000 UNIT CAP/TAB PO SCH (10:16)
[2021-06-05] MEDS: APIXABAN 5 MG TAB PO SCH (10:16)
[2021-06-05] MEDS: OSELTAMIVIR 75 MG CAP PO SCH (10:27)
[2021-06-05] MEDS: PHENYTOIN SODIUM 100 MG CAP PO SCH (10:27)
[2021-06-05 16:05] VITALS: BP 117/61
[2021-06-05 16:51] VITALS: BP 128/74
== END 2021-06-05 18:39 | disposition home or self-care (01) | DRG 871 ==
LOC: WEST WING 17:04
PROVIDERS: ADMIT Internal Medicine; ATTEND Internal Medicine
DX: A41.9 Sepsis, unspecified organism (principal); J18.9 Pneumonia, unspecified organism; N39.0 Urinary tract infection, site not specified; J44.1 Chronic obstructive pulmonary disease with (acute) exacerbation; J44.0 Chronic obstructive pulmonary disease with (acute) lower respiratory infection; I50.30 Unspecified diastolic (congestive) heart failure; E78.5 Hyperlipidemia, unspecified; I25.10 Atherosclerotic heart disease of native coronary artery without angina pectoris; E11.42 Type 2 diabetes mellitus with diabetic polyneuropathy; I27.20 Pulmonary hypertension, unspecified; I11.0 Hypertensive heart disease with heart failure; E66.9 Obesity, unspecified; G40.909 Epilepsy, unspecified, not intractable, without status epilepticus; Z80.0 Family history of malignant neoplasm of digestive organs; Z86.16 Personal history of COVID-19; Z80.1 Family history of malignant neoplasm of trachea, bronchus and lung; Z68.34 Body mass index [BMI] 34.0-34.9, adult; Z82.3 Family history of stroke; Z82.49 Family history of ischemic heart disease and other diseases of the circulatory system; Z83.3 Family history of diabetes mellitus; Z86.718 Personal history of other venous thrombosis and embolism; Z90.710 Acquired absence of both cervix and uterus
CPT/HCPCS: 36415; 71045; 80053; 81001; 82043; 82962; 83036; 83735; 83880; 84484; 85025; 85652; 86141; 87040; 87086; 87426; 94640; G0378; J0696; J1815; J3490

== ENCOUNTER → 2021-06-01 | Emergency (ER) | payer MEDICARE, MEDICAID ==
[~2021-06-01] VITALS: Ht 157.5 cm; Wt 84.4 kg
[~2021-06-01] MED LIST changes: +ASPirin 81 mg TAB PO ONE; +methylPREDNISolone SOD SUCC 125 MG/2 ML VL IM ONE
[2021-06-01 09:10] VITALS: BP 170/59
[2021-06-01 10:33] LABS: Basophils # (auto) 0 10 ^3/uL (0-0.2); Mean Corpuscular Volume 74.1 fL (80.0-100.0); Neutrophils # (auto) 9.8 10 ^3/uL (1.6-8.6); Neutrophils % (auto) 81.7 % (37.0-80.0); Red Cell Distribution Width 19.5 % (11.8-14.3); White Blood Cell 12.1 10^3/uL (4.4-10.8)
[2021-06-01 10:35] LABS: Basophils % (auto) 0.3 % (0.0-2.0); Eosinophils # (auto) 0.1 10 ^3/uL (0-0.8); Eosinophils % (auto) 0.7 % (0.0-7.0); Hematocrit 37.8 % (36.0-46.0); Hemoglobin 12.1 g/dL (12.2-16.2); Lymphocytes # (auto) 1.4 10 ^3/uL (0.4-5.4); Lymphocytes % (auto) 11.3 % (10.0-50.0); Mean Corpuscular Hemoglobin 23.6 pg (28.0-32.0); Mean Corpuscular Hgb Conc. 31.9 g/dL (32.0-36.0); Monocytes # (auto) 0.7 10 ^3/uL (0-1.3); Nucleated Red Blood Cells % 0.1 %
[2021-06-01 10:50] LABS: Albumin 3.3 g/dL (3.4-5.0); Calcium 8.4 mg/dL (8.5-10.1); Potassium 3.6 mmol/L (3.5-5.1)
[2021-06-01 10:55] LABS: BUN/Creatinine Ratio 18.2; Bilirubin, Total 0.2 mg/dL (0.2-1.0); Total Protein 6.6 g/dL (6.4-8.2)
== END | disposition home or self-care (01) ==
LOC: ER 09:07
DX: J18.1 Lobar pneumonia, unspecified organism (principal); E46 Unspecified protein-calorie malnutrition; E11.65 Type 2 diabetes mellitus with hyperglycemia; I10 Essential (primary) hypertension; E78.5 Hyperlipidemia, unspecified; Z68.34 Body mass index [BMI] 34.0-34.9, adult; Z86.73 Personal history of transient ischemic attack (TIA), and cerebral infarction without residual deficits; Z90.49 Acquired absence of other specified parts of digestive tract; Z79.82 Long term (current) use of aspirin; Z79.2 Long term (current) use of antibiotics; Z79.899 Other long term (current) drug therapy; Z88.0 Allergy status to penicillin; Z88.5 Allergy status to narcotic agent; Z88.8 Allergy status to other drugs, medicaments and biological substances
CPT/HCPCS: 36415; 71045; 80053; 82962; 84484; 85025; 93005

== ENCOUNTER 2021-06-08 15:10 | Inpatient (IN) | payer MEDICARE, MEDICAID ==
[~2021-06-08] VITALS: Ht 157.5 cm; Wt 84.0 kg
[2021-06-08] MEDS ORDERED: SODIUM CHLORIDE 0.9% 1,000 ML IVB ONE (16:00)
[2021-06-08 16:39] LABS: Basophils # (auto) 0.1 10 ^3/uL (0-0.2); Basophils % (auto) 0.7 % (0.0-2.0); Eosinophils # (auto) 0 10 ^3/uL (0-0.8); Eosinophils % (auto) 0.1 % (0.0-7.0); Lymphocytes # (auto) 0.7 10 ^3/uL (0.4-5.4); Monocytes # (auto) 0.3 10 ^3/uL (0-1.3); Monocytes % (auto) 3.7 % (0.0-12.0); Neutrophils # (auto) 7.1 10 ^3/uL (1.6-8.6); White Blood Cell 8.2 10^3/uL (4.4-10.8)
[2021-06-08 16:40] LABS: Hematocrit 34.6 % (36.0-46.0); Hemoglobin 11.3 g/dL (12.2-16.2); Lymphocytes % (auto) 8.2 % (10.0-50.0); Mean Corpuscular Hemoglobin 23.9 pg (28.0-32.0); Mean Corpuscular Hgb Conc. 32.7 g/dL (32.0-36.0); Neutrophils % (auto) 87.3 % (37.0-80.0); Nucleated Red Blood Cells % 0.1 %; Red Blood Cells 4.73 10^6/uL (4.0-5.20)
[2021-06-08 17:00] LABS: Albumin 3.3 g/dL (3.4-5.0); Calcium 8.3 mg/dL (8.5-10.1); Magnesium 3.2 mg/dL (1.6-2.6); Potassium 4.1 mmol/L (3.5-5.1)
[2021-06-08 17:10] LABS: BUN/Creatinine Ratio 10.3; Bilirubin, Total 0.2 mg/dL (0.2-1.0); CRP High Sensitivity 2.05 mg/dL (< 0.3); Total Protein 6.3 g/dL (6.4-8.2)
[2021-06-08] MEDS ORDERED: PHENYTOIN IV DILANTIN 500 MG in SODIUM CHL 0.9% 100 ML IV ONE (20:00)
[2021-06-08] MEDS ORDERED: PHENYTOIN SODIUM 100 MG CAP PO ONE (20:00)
[2021-06-08] MEDS ORDERED: ACETAMINOPHEN 500 MG TAB PO ONE (21:30)
[2021-06-08] MEDS ORDERED: ONDANSETRON HCL 4 MG/2 ML VIAL IV PRN (21:45)
[2021-06-08] MEDS ORDERED: LORazepam 2MG/ML-1ML VIAL IV PRN (21:45)
[2021-06-08] MEDS ORDERED: ACETAMINOPHEN 325 MG TAB PO PRN (21:45)
[2021-06-08] MEDS ORDERED: TEMAZEPAM 15 MG CAP PO PRN (21:45)
[2021-06-08] MEDS ORDERED: DEXTROSE (50%) 50ML SYRG IV PRN (21:45)
[2021-06-08] MEDS ORDERED: PHENYTOIN SODIUM 100 MG CAP PO SCH (22:00)
[2021-06-08] MEDS: ACCU-CHEK COMFORT CURVE STRIP VI SCH (23:09)
[2021-06-08] MEDS: InsuLIN REG 1unit/0.01ml Soln (100units/ml) SC SCH (23:14)
[2021-06-08] MEDS: LISINOPRIL 5 MG TAB PO SCH (23:35)
[2021-06-08] MEDS: GABAPENTIN 300 MG CAP PO SCH (23:36)
[2021-06-08] MEDS: APIXABAN 5 MG TAB PO SCH (23:36)
[2021-06-09] MEDS: HYDROcodone-ACET 5/325MG TAB PO PRN ×2 (01:29→08:02)
[2021-06-09 07:26] LABS: Basophils # (auto) 0.1 10 ^3/uL (0-0.2); Basophils % (auto) 1.7 % (0.0-2.0); Eosinophils # (auto) 0 10 ^3/uL (0-0.8); Eosinophils % (auto) 0.6 % (0.0-7.0); Hematocrit 35.5 % (36.0-46.0); Hemoglobin 11.6 g/dL (12.2-16.2); Lymphocytes # (auto) 1.7 10 ^3/uL (0.4-5.4); Lymphocytes % (auto) 27.3 % (10.0-50.0); Mean Corpuscular Hemoglobin 23.9 pg (28.0-32.0); Mean Corpuscular Hgb Conc. 32.7 g/dL (32.0-36.0); Mean Corpuscular Volume 73.1 fL (80.0-100.0); Monocytes # (auto) 0.6 10 ^3/uL (0-1.3); Monocytes % (auto) 9.7 % (0.0-12.0); Neutrophils # (auto) 3.8 10 ^3/uL (1.6-8.6); Neutrophils % (auto) 60.7 % (37.0-80.0); Nucleated Red Blood Cells % 0.1 %; Red Blood Cells 4.86 10^6/uL (4.0-5.20); Red Cell Distribution Width 20.2 % (11.8-14.3); White Blood Cell 6.2 10^3/uL (4.4-10.8)
[2021-06-09] MEDS: InsuLIN REG 1unit/0.01ml Soln (100units/ml) SC SCH ×4 (07:27→22:31)
[2021-06-09] MEDS: ACCU-CHEK COMFORT CURVE STRIP VI SCH ×4 (07:27→21:15)
[2021-06-09 07:46] LABS: Calcium 8.3 mg/dL (8.5-10.1); Potassium 4.3 mmol/L (3.5-5.1)
[2021-06-09 09:00] VITALS: BP 115/64
[2021-06-09] MEDS ORDERED: HYDROmorphone HCL 2 MG/ML VL IV ONE (10:00)
[2021-06-09] MEDS ORDERED: LORazepam 2MG/ML-1ML VIAL IV PRN (10:00)
[2021-06-09] MEDS: PHENYTOIN SODIUM 100 MG CAP PO SCH ×2 (10:53→21:13)
[2021-06-09] MEDS: GABAPENTIN 300 MG CAP PO SCH ×2 (10:54→21:13)
[2021-06-09] MEDS: APIXABAN 5 MG TAB PO SCH ×2 (10:54→21:13)
[2021-06-09] MEDS: LISINOPRIL 5 MG TAB PO SCH ×2 (10:58→21:15)
[2021-06-09 13:00] VITALS: BP 129/81
[2021-06-09] MEDS: HYDROmorphone HCL 2 MG/ML VL IV PRN ×2 (15:11→21:16)
[2021-06-09 17:00] VITALS: BP 116/73
[2021-06-09 22:00] VITALS: BP 127/52
[2021-06-10 05:00] VITALS: BP 135/71
[2021-06-10] MEDS: HYDROmorphone HCL 2 MG/ML VL IV PRN ×2 (05:20→11:53)
[2021-06-10] MEDS: InsuLIN REG 1unit/0.01ml Soln (100units/ml) SC SCH ×3 (06:11→17:49)
[2021-06-10] MEDS: ACCU-CHEK COMFORT CURVE STRIP VI SCH ×3 (06:12→17:00)
[2021-06-10 09:00] VITALS: BP 114/55
[2021-06-10] MEDS: PHENYTOIN SODIUM 100 MG CAP PO SCH (09:42)
[2021-06-10] MEDS: GABAPENTIN 300 MG CAP PO SCH (09:43)
[2021-06-10] MEDS: APIXABAN 5 MG TAB PO SCH (09:43)
[2021-06-10] MEDS: LISINOPRIL 5 MG TAB PO SCH (09:47)
[2021-06-10] MEDS: HYDROcodone-ACET 5/325MG TAB PO PRN ×2 (09:53→17:54)
[2021-06-10] MEDS ORDERED: ATOR10TA52 PO (10:00)
[2021-06-10 17:17] VITALS: BP 129/68
== END 2021-06-10 17:45 | disposition home or self-care (01) | DRG 101 ==
LOC: ER 15:10 → EDBD 15:10 → OVERFLOW 21:41 → WEST WING 06-09 08:36
PROVIDERS: ADMIT Nurse Practitioner; ATTEND Internal Medicine
DX: G40.209 Localization-related (focal) (partial) symptomatic epilepsy and epileptic syndromes with complex partial seizures, not intractable, without status epilepticus (principal); G45.9 Transient cerebral ischemic attack, unspecified; I50.32 Chronic diastolic (congestive) heart failure; E11.9 Type 2 diabetes mellitus without complications; E66.9 Obesity, unspecified; F17.200 Nicotine dependence, unspecified, uncomplicated; I11.0 Hypertensive heart disease with heart failure; I27.20 Pulmonary hypertension, unspecified; Z20.822 Contact with and (suspected) exposure to COVID-19; Z79.01 Long term (current) use of anticoagulants; Z79.82 Long term (current) use of aspirin; Z80.0 Family history of malignant neoplasm of digestive organs; Z80.1 Family history of malignant neoplasm of trachea, bronchus and lung; Z82.3 Family history of stroke; Z82.49 Family history of ischemic heart disease and other diseases of the circulatory system; Z83.3 Family history of diabetes mellitus; Z86.16 Personal history of COVID-19; Z86.718 Personal history of other venous thrombosis and embolism; Z86.73 Personal history of transient ischemic attack (TIA), and cerebral infarction without residual deficits; Z87.01 Personal history of pneumonia (recurrent); Z90.710 Acquired absence of both cervix and uterus; Z90.49 Acquired absence of other specified parts of digestive tract; Z68.33 Body mass index [BMI] 33.0-33.9, adult
CPT/HCPCS: 36415; 70450; 70551; 71045; 80048; 80053; 80185; 82728; 82962; 83735; 85025; 86141; 87081; 87426; 93005; 95819; 96365; G0378; J1815

== ENCOUNTER → 2021-07-01 | Outpatient (CLI) | payer MEDICARE, MEDICAID ==
[~2021-07-01] MED LIST changes: +ATOR10TA52 PO
[2021-07-01 13:19] LABS: Basophils # (auto) 0.1 10 ^3/uL (0-0.2); Eosinophils # (auto) 0 10 ^3/uL (0-0.8); Eosinophils % (auto) 0.2 % (0.0-7.0); Hematocrit 39.1 % (36.0-46.0); Hemoglobin 12.9 g/dL (12.2-16.2); Lymphocytes # (auto) 2.2 10 ^3/uL (0.4-5.4); Lymphocytes % (auto) 22.1 % (10.0-50.0); Mean Corpuscular Hemoglobin 23.4 pg (28.0-32.0); Mean Corpuscular Volume 70.8 fL (80.0-100.0); Monocytes # (auto) 0.7 10 ^3/uL (0-1.3); Monocytes % (auto) 7.2 % (0.0-12.0); Neutrophils # (auto) 6.9 10 ^3/uL (1.6-8.6); Neutrophils % (auto) 69.5 % (37.0-80.0); Nucleated Red Blood Cells % 0.1 %; Red Blood Cells 5.51 10^6/uL (4.0-5.20); Red Cell Distribution Width 19.7 % (11.8-14.3)
[2021-07-01 13:50] LABS: Albumin 3.4 g/dL (3.4-5.0); Calcium 8.7 mg/dL (8.5-10.1); Potassium 4.1 mmol/L (3.5-5.1)
[2021-07-01 13:54] LABS: BUN/Creatinine Ratio 13.4; Bilirubin, Total 0.2 mg/dL (0.2-1.0)
== END | disposition home or self-care (01) ==
LOC: LAB 12:59
PROVIDERS: ATTEND Internal Medicine
DX: E11.9 Type 2 diabetes mellitus without complications (principal); Z12.11 Encounter for screening for malignant neoplasm of colon
CPT/HCPCS: 36415; 80053; 80061; 82043; 85025

== ENCOUNTER → 2022-01-05 | Outpatient (CLI) | payer MEDICARE, MEDICAID ==
[2022-01-05 12:44] LABS: Albumin 3.8 g/dL (3.4-5.0); Potassium 4.5 mmol/L (3.5-5.1)
[2022-01-05 12:48] LABS: BUN/Creatinine Ratio 21.7; Bilirubin, Total 0.2 mg/dL (0.2-1.0); Total Protein 7.5 g/dL (6.4-8.2)
== END | disposition home or self-care (01) ==
LOC: LAB 11:41
PROVIDERS: ATTEND Internal Medicine
DX: J44.9 Chronic obstructive pulmonary disease, unspecified (principal); I10 Essential (primary) hypertension; E78.5 Hyperlipidemia, unspecified; E11.9 Type 2 diabetes mellitus without complications
CPT/HCPCS: 36415; 80053; 80061; 83036; 85652

== ENCOUNTER 2022-01-11 15:03 | Inpatient (IN) | payer MEDICARE, MEDICAID ==
[~2022-01-11] VITALS: Ht 157.5 cm; Wt 79.5 kg
[2022-01-11] MEDS ORDERED: InsuLIN REG 1unit/0.01ml Soln (100units/ml) IV ONE (17:00)
[2022-01-11] MEDS ORDERED: SODIUM CHLORIDE 0.9% 1,000 ML IV ONE (17:00)
[2022-01-11] MEDS ORDERED: KETOROLAC TROMETH 30 MG/ML 1ML VIAL IV ONE (17:00)
[2022-01-11] MEDS ORDERED: FUROSEMIDE 20 MG/2 ML VIAL IV ONE (17:00)
[2022-01-11 18:29] LABS: Urine Bacteria FEW /hpf (None Seen); Urine Blood Negative /uL (Negative); Urine Specific Gravity 1.038 (1.001-1.035); Urine WBC 3 /hpf (0 - 5)
[2022-01-11 18:57] LABS: Basophils # (auto) 0.1 10 ^3/uL (0-0.2); Basophils % (auto) 1.4 % (0.0-2.0); Eosinophils # (auto) 0.1 10 ^3/uL (0-0.8); Eosinophils % (auto) 0.6 % (0.0-7.0); Hematocrit 45.9 % (36.0-46.0); Hemoglobin 15.1 g/dL (12.2-16.2); Lymphocytes # (auto) 2.1 10 ^3/uL (0.4-5.4); Lymphocytes % (auto) 23.4 % (10.0-50.0); Mean Corpuscular Hemoglobin 27.2 pg (28.0-32.0); Mean Corpuscular Hgb Conc. 32.9 g/dL (32.0-36.0); Mean Corpuscular Volume 82.5 fL (80.0-100.0); Monocytes # (auto) 0.8 10 ^3/uL (0-1.3); Monocytes % (auto) 8.8 % (0.0-12.0); Neutrophils % (auto) 65.8 % (37.0-80.0); Nucleated Red Blood Cells % 0.1 %; Red Blood Cells 5.56 10^6/uL (4.0-5.20); Red Cell Distribution Width 19.1 % (11.8-14.3); White Blood Cell 9.2 10^3/uL (4.4-10.8)
[2022-01-11 19:14] LABS: BUN/Creatinine Ratio 29.5; Calcium 8.8 mg/dL (8.5-10.1); Potassium 4.6 mmol/L (3.5-5.1)
[2022-01-11 19:17] LABS: Bilirubin, Total 0.3 mg/dL (0.2-1.0); Total Protein 7.4 g/dL (6.4-8.2)
[2022-01-11] MEDS ORDERED: ACETAMINOPHEN 325 MG TAB PO PRN (22:30)
[2022-01-11] MEDS ORDERED: TEMAZEPAM 15 MG CAP PO PRN (22:30)
[2022-01-11] MEDS ORDERED: DEXTROSE (50%) 50ML SYRG IV PRN (22:30)
[2022-01-12] MEDS: ONDANSETRON HCL 4 MG/2 ML VIAL IV PRN ×3 (00:29→17:30)
[2022-01-12] MEDS: MORPHINE SULFATE INJ 2 MG/ml SYRG IV PRN ×3 (00:30→17:30)
[2022-01-12] MEDS: HYDROcodone-ACET 5/325MG TAB PO PRN ×4 (03:36→22:12)
[2022-01-12 05:47] LABS: Anion Gap 6 (5-15); BUN/Creatinine Ratio 27.9; Blood Urea Nitrogen 17 mg/dL (7-18); Calcium 7.7 mg/dL (8.5-10.1); Carbon Dioxide 28 mmol/L (21-32); Chloride 109 mmol/L (98-107); GFR African American 126 mL/min; GFR Non-African American 104 mL/min; Glucose 128 mg/dL (74-106); Potassium 4.1 mmol/L (3.5-5.1); Sodium 143 mmol/L (136-145)
[2022-01-12] MEDS ORDERED: BACLOFEN 10 MG TAB PO PRN (06:45)
[2022-01-12] MEDS: InsuLIN REG 1unit/0.01ml Soln (100units/ml) SC SCH ×4 (07:00→22:00)
[2022-01-12] MEDS: ACCU-CHEK COMFORT CURVE STRIP VI SCH ×4 (07:21→22:11)
[2022-01-12 09:00] VITALS: BP 115/64
[2022-01-12] MEDS: GABAPENTIN 300 MG CAP PO SCH ×2 (10:47→22:10)
[2022-01-12] MEDS: PANTOPRAZOLE 40 MG TAB PO SCH (10:48)
[2022-01-12] MEDS: PHENYTOIN SODIUM 100 MG CAP PO SCH ×2 (10:49→22:10)
[2022-01-12] MEDS: LISINOPRIL 5 MG TAB PO SCH (10:49)
[2022-01-12] MEDS ORDERED: PIOG1TAB36 PO (12:14)
[2022-01-12 13:00] VITALS: BP 117/70
[2022-01-12 16:42] VITALS: BP 101/55
[2022-01-12 20:00] VITALS: BP 115/52
[2022-01-12] MEDS ORDERED: ATORVASTATIN 20 MG TAB PO SCH (22:00)
[2022-01-12 22:27] VITALS: BP 99/43
[2022-01-13 05:08] VITALS: BP 146/71
[2022-01-13] MEDS: InsuLIN REG 1unit/0.01ml Soln (100units/ml) SC SCH ×2 (05:25→12:27)
[2022-01-13] MEDS: ACCU-CHEK COMFORT CURVE STRIP VI SCH ×2 (05:36→12:26)
[2022-01-13] MEDS: MORPHINE SULFATE INJ 2 MG/ml SYRG IV PRN (05:59)
[2022-01-13 08:00] VITALS: BP 120/58
[2022-01-13 09:00] VITALS: BP 120/48
[2022-01-13] MEDS: PHENYTOIN SODIUM 100 MG CAP PO SCH (09:06)
[2022-01-13] MEDS: GABAPENTIN 300 MG CAP PO SCH (09:07)
[2022-01-13] MEDS: LISINOPRIL 5 MG TAB PO SCH (09:09)
[2022-01-13] MEDS: PANTOPRAZOLE 40 MG TAB PO SCH (09:09)
[2022-01-13] MEDS: HYDROcodone-ACET 5/325MG TAB PO PRN (09:10)
[2022-01-13] MEDS ORDERED: GABA300C10 PO (09:43)
[2022-01-13] MEDS ORDERED: BACL20TA PO (09:43)
[2022-01-13] MEDS ORDERED: HYDR-4798 PO (09:43)
[2022-01-13 13:00] VITALS: BP 121/62
[2022-01-13 14:16] VITALS: BP 121/62
== END 2022-01-13 15:15 | disposition home or self-care (01) | DRG 552 ==
LOC: EDBD 15:03 → EDSEX 15:03 → ER 15:03 → OVERFLOW 22:21 → WEST WING 01-12 08:04
PROVIDERS: ADMIT Nurse Practitioner; ATTEND Family Medicine
DX: M54.16 Radiculopathy, lumbar region (principal); G89.29 Other chronic pain; E11.65 Type 2 diabetes mellitus with hyperglycemia; E78.00 Pure hypercholesterolemia, unspecified; I11.0 Hypertensive heart disease with heart failure; I50.9 Heart failure, unspecified; K57.90 Diverticulosis of intestine, part unspecified, without perforation or abscess without bleeding; S33.5XXA Sprain of ligaments of lumbar spine, initial encounter; X58.XXXA Exposure to other specified factors, initial encounter; R56.9 Unspecified convulsions; Z20.822 Contact with and (suspected) exposure to COVID-19; J44.9 Chronic obstructive pulmonary disease, unspecified; Z80.1 Family history of malignant neoplasm of trachea, bronchus and lung; Z82.3 Family history of stroke; Z82.49 Family history of ischemic heart disease and other diseases of the circulatory system; Z86.16 Personal history of COVID-19; Z86.73 Personal history of transient ischemic attack (TIA), and cerebral infarction without residual deficits; Z90.710 Acquired absence of both cervix and uterus; Z88.5 Allergy status to narcotic agent; Z88.0 Allergy status to penicillin; Z88.8 Allergy status to other drugs, medicaments and biological substances; Z90.49 Acquired absence of other specified parts of digestive tract; Y93.89 Activity, other specified; Y92.89 Other specified places as the place of occurrence of the external cause; Y99.8 Other external cause status; Z87.01 Personal history of pneumonia (recurrent); Z79.84 Long term (current) use of oral hypoglycemic drugs
CPT/HCPCS: 36415; 71045; 72100; 72131; 74176; 80048; 80053; 80185; 81001; 82040; 82962; 83880; 84484; 85025; 96374; 97163; 99291; G0378; J1815; J1885; J2405

== ENCOUNTER 2022-01-15 02:22 | Emergency (ER) | payer MEDICARE, MEDICAID ==
[~2022-01-15] VITALS: Ht 157.5 cm; Wt 75.0 kg
[~2022-01-15 02:22] MED LIST changes: +BACL20TA PO; +HYDR-4798 PO; +PIOG1TAB36 PO
[2022-01-15 03:29] LABS: Basophils # (auto) 0 10 ^3/uL (0-0.2); Basophils % (auto) 0.3 % (0.0-2.0); Eosinophils # (auto) 0 10 ^3/uL (0-0.8); Eosinophils % (auto) 0.3 % (0.0-7.0); Hematocrit 45.4 % (36.0-46.0); Hemoglobin 15.3 g/dL (12.2-16.2); Lymphocytes # (auto) 1.6 10 ^3/uL (0.4-5.4); Lymphocytes % (auto) 13.5 % (10.0-50.0); Mean Corpuscular Hemoglobin 27.8 pg (28.0-32.0); Mean Corpuscular Hgb Conc. 33.8 g/dL (32.0-36.0); Mean Corpuscular Volume 82.4 fL (80.0-100.0); Monocytes # (auto) 0.9 10 ^3/uL (0-1.3); Monocytes % (auto) 7.7 % (0.0-12.0); Neutrophils # (auto) 9.5 10 ^3/uL (1.6-8.6); Neutrophils % (auto) 78.2 % (37.0-80.0); Nucleated Red Blood Cells % 0.1 %; Red Blood Cells 5.51 10^6/uL (4.0-5.20); Red Cell Distribution Width 18.7 % (11.8-14.3); White Blood Cell 12.2 10^3/uL (4.4-10.8)
[2022-01-15 04:10] LABS: Sodium 140 mmol/L (136-145)
[2022-01-15 04:11] LABS: Alanine Aminotransferase 21 U/L (13-56); Alkaline Phosphatase 129 U/L (45-117); Anion Gap 11 (5-15); Aspartate Aminotransferase 15 U/L (15-37); BUN/Creatinine Ratio 28.1; Bilirubin, Total 0.3 mg/dL (0.2-1.0); Blood Urea Nitrogen 18 mg/dL (7-18); Carbon Dioxide 23 mmol/L (21-32); Chloride 106 mmol/L (98-107); GFR African American 119 mL/min; GFR Non-African American 98 mL/min; Glucose 139 mg/dL (74-106); Lipase 121 U/L (73-393); Total Protein 7.7 g/dL (6.4-8.2)
[2022-01-15] MEDS ORDERED: SODIUM CHLORIDE 0.9% 1,000 ML IV ONE (09:00)
[2022-01-15 09:33] LABS: Basophils # (auto) 0.1 10 ^3/uL (0-0.2); Basophils % (auto) 1.1 % (0.0-2.0); Eosinophils # (auto) 0.1 10 ^3/uL (0-0.8); Eosinophils % (auto) 0.7 % (0.0-7.0); Hematocrit 45.6 % (36.0-46.0); Hemoglobin 14.9 g/dL (12.2-16.2); Lymphocytes # (auto) 1.9 10 ^3/uL (0.4-5.4); Lymphocytes % (auto) 20.7 % (10.0-50.0); Mean Corpuscular Hgb Conc. 32.7 g/dL (32.0-36.0); Mean Corpuscular Volume 82.5 fL (80.0-100.0); Monocytes # (auto) 0.8 10 ^3/uL (0-1.3); Monocytes % (auto) 8.2 % (0.0-12.0); Neutrophils # (auto) 6.5 10 ^3/uL (1.6-8.6); Neutrophils % (auto) 69.3 % (37.0-80.0); Nucleated Red Blood Cells % 0.1 %; Red Blood Cells 5.53 10^6/uL (4.0-5.20); Red Cell Distribution Width 19.1 % (11.8-14.3); White Blood Cell 9.3 10^3/uL (4.4-10.8)
[2022-01-15] MEDS ORDERED: IOHEXOL 300 MG/ML 100ML BOTTLE IJ ONE (09:39)
[2022-01-15] MEDS ORDERED: diazePAM 2 MG TAB PO ONE (09:45)
[2022-01-15] MEDS ORDERED: NAPROXEN 500 MG TAB PO ONE (09:45)
[2022-01-15 09:56] LABS: Albumin 3.9 g/dL (3.4-5.0); Calcium 8.7 mg/dL (8.5-10.1); Potassium 3.6 mmol/L (3.5-5.1)
[2022-01-15 09:59] LABS: BUN/Creatinine Ratio 23.3; Bilirubin, Total 0.4 mg/dL (0.2-1.0); Total Protein 7.5 g/dL (6.4-8.2)
[2022-01-15 10:48] LABS: Urine Bacteria MOD /hpf (None Seen); Urine Blood Negative /uL (Negative); Urine Specific Gravity 1.008 (1.001-1.035); Urine WBC 4 /hpf (0 - 5)
[2022-01-15 10:53] VITALS: BP 115/58
[2022-01-15] MEDS ORDERED: cefTRIAXone 1GM/50ML D5W 50 ML IV ONE (11:15)
[2022-01-15] MEDS ORDERED: CEPH-509 PO (11:17)
[2022-01-15] MEDS ORDERED: CEPH500C PO (13:53)
== END 2022-01-15 13:53 | disposition home or self-care (01) ==
LOC: ER 02:22 → EDBD 02:22 → ER 13:53
DX: N12 Tubulo-interstitial nephritis, not specified as acute or chronic (principal); J44.9 Chronic obstructive pulmonary disease, unspecified; E11.9 Type 2 diabetes mellitus without complications; E78.5 Hyperlipidemia, unspecified; I10 Essential (primary) hypertension; Z90.49 Acquired absence of other specified parts of digestive tract; Z90.710 Acquired absence of both cervix and uterus; Z88.0 Allergy status to penicillin; Z88.6 Allergy status to analgesic agent; Z86.73 Personal history of transient ischemic attack (TIA), and cerebral infarction without residual deficits
CPT/HCPCS: 36415; 74177; 80053; 81001; 82962; 83605; 83690; 85025; 93005; 96361; 96365; 99285; J0696; J7030; Q9967

== ENCOUNTER 2022-01-17 14:33 | Emergency (ER) | payer MEDICARE, MEDICAID ==
[~2022-01-17] VITALS: Ht 157.5 cm; Wt 75.0 kg
[~2022-01-17 14:33] MED LIST changes: +CEPH-509 PO; +CEPH500C PO
[2022-01-18 05:45] VITALS: BP 140/68
[2022-01-18] MEDS ORDERED: KETOROLAC TROMETH 60MG/2ML VIAL IM ONE (06:30)
== END 2022-01-18 08:46 | disposition home or self-care (01) ==
LOC: ER 14:33 → EDBD 14:33 → ER 01-18 07:56
DX: S46.911A Strain of unspecified muscle, fascia and tendon at shoulder and upper arm level, right arm, initial encounter (principal); S16.1XXA Strain of muscle, fascia and tendon at neck level, initial encounter; S63.501A Unspecified sprain of right wrist, initial encounter; S60.221A Contusion of right hand, initial encounter; S09.90XA Unspecified injury of head, initial encounter; J44.9 Chronic obstructive pulmonary disease, unspecified; E11.9 Type 2 diabetes mellitus without complications; E78.5 Hyperlipidemia, unspecified; I10 Essential (primary) hypertension; Z86.73 Personal history of transient ischemic attack (TIA), and cerebral infarction without residual deficits; Z79.899 Other long term (current) drug therapy; Z88.5 Allergy status to narcotic agent; Z88.0 Allergy status to penicillin; Z88.8 Allergy status to other drugs, medicaments and biological substances; W18.39XA Other fall on same level, initial encounter; Y93.89 Activity, other specified; Y92.89 Other specified places as the place of occurrence of the external cause; Y99.8 Other external cause status
CPT/HCPCS: 29125; 70450; 72125; 73030; 73110; 73130; 93005; 96372; 99285; J1885

== ENCOUNTER 2022-01-27 14:57 | Emergency (ER) | payer OTHER, MEDICAID ==
[~2022-01-27] VITALS: Ht 157.5 cm; Wt 75.4 kg
[2022-01-27] MEDS ORDERED: ONDANSETRON ODT 4 MG TAB PO ONE (17:00)
[2022-01-27] MEDS ORDERED: KETOROLAC TROMETH 60MG/2ML VIAL IM ONE (18:30)
[2022-01-27] MEDS ORDERED: GABAPENTIN 300 MG CAP PO ONE (18:30)
[2022-01-27 18:32] LABS: Urine Bacteria FEW /hpf (None Seen); Urine Blood Negative /uL (Negative); Urine Specific Gravity 1.034 (1.001-1.035); Urine WBC 1 /hpf (0 - 5)
[2022-01-27] MEDS ORDERED: GABA300C10 PO (20:52)
[2022-01-27] MEDS ORDERED: CEPH-509 PO (20:57)
[2022-01-28 01:15] VITALS: BP 117/44
== END 2022-01-28 03:38 | disposition home or self-care (01) ==
LOC: ER 14:57
DX: M54.30 Sciatica, unspecified side (principal); E11.9 Type 2 diabetes mellitus without complications; I10 Essential (primary) hypertension; J44.9 Chronic obstructive pulmonary disease, unspecified; E78.5 Hyperlipidemia, unspecified; Z90.49 Acquired absence of other specified parts of digestive tract; Z90.89 Acquired absence of other organs; Z90.710 Acquired absence of both cervix and uterus; Z79.899 Other long term (current) drug therapy; Z88.6 Allergy status to analgesic agent; Z88.0 Allergy status to penicillin; Z88.8 Allergy status to other drugs, medicaments and biological substances; R51.9 Headache, unspecified
CPT/HCPCS: 70450; 73030; 73060; 73630; 81001; 82962; 96372; 99285; J1885; Q0162

== ENCOUNTER → 2022-02-15 | Outpatient (CLI) | payer OTHER, MEDICARE, MEDICAID | END | disposition home or self-care (01) | LOC: LAB 10:27 | PROVIDERS: ATTEND Internal Medicine | DX: M43.12 Spondylolisthesis, cervical region (principal) | CPT/HCPCS: 36415; 85652 ==

== ENCOUNTER 2022-03-07 18:31 | Emergency (ER) | payer OTHER, MEDICAID, BC ==
[~2022-03-07] VITALS: Ht 157.5 cm; Wt 78.0 kg
[2022-03-07] MEDS ORDERED: KETOROLAC TROMETH 30 MG/ML 1ML VIAL IM ONE (19:00)
[2022-03-07 20:22] LABS: Albumin 3.5 g/dL (3.4-5.0); Calcium 8.3 mg/dL (8.5-10.1); Potassium 3.4 mmol/L (3.5-5.1)
[2022-03-07 20:25] LABS: Bilirubin, Total 0.3 mg/dL (0.2-1.0); Total Protein 6.1 g/dL (6.4-8.2)
[2022-03-07] MEDS ORDERED: OXYCODONE W/ ACETAMINOPHEN 5/325MG TABLET PO ONE (21:45)
[2022-03-07 22:02] LABS: Basophils # (auto) 0.1 10 ^3/uL (0-0.2); Basophils % (auto) 1.4 % (0.0-2.0); Eosinophils # (auto) 0 10 ^3/uL (0-0.8); Eosinophils % (auto) 0.3 % (0.0-7.0); Hematocrit 42.7 % (36.0-46.0); Hemoglobin 14.1 g/dL (12.2-16.2); Lymphocytes # (auto) 1.8 10 ^3/uL (0.4-5.4); Lymphocytes % (auto) 21.9 % (10.0-50.0); Mean Corpuscular Hemoglobin 28.2 pg (28.0-32.0); Mean Corpuscular Hgb Conc. 33.1 g/dL (32.0-36.0); Mean Corpuscular Volume 85.1 fL (80.0-100.0); Monocytes # (auto) 0.8 10 ^3/uL (0-1.3); Monocytes % (auto) 9.9 % (0.0-12.0); Neutrophils # (auto) 5.3 10 ^3/uL (1.6-8.6); Neutrophils % (auto) 66.5 % (37.0-80.0); Nucleated Red Blood Cells % 0.1 %; Red Blood Cells 5.02 10^6/uL (4.0-5.20); Red Cell Distribution Width 17.2 % (11.8-14.3)
[2022-03-08 01:00] VITALS: BP 123/68
== END 2022-03-08 01:58 | disposition home or self-care (01) ==
LOC: EDBD 18:31 → EDSEX 18:31 → ER 18:31
DX: M79.662 Pain in left lower leg (principal); M79.661 Pain in right lower leg; J44.9 Chronic obstructive pulmonary disease, unspecified; E11.9 Type 2 diabetes mellitus without complications; E78.5 Hyperlipidemia, unspecified; I10 Essential (primary) hypertension; Z88.6 Allergy status to analgesic agent; Z88.0 Allergy status to penicillin; Z88.8 Allergy status to other drugs, medicaments and biological substances; Z86.73 Personal history of transient ischemic attack (TIA), and cerebral infarction without residual deficits; Z90.89 Acquired absence of other organs; Z90.49 Acquired absence of other specified parts of digestive tract; Z79.899 Other long term (current) drug therapy
CPT/HCPCS: 36415; 70450; 80053; 82962; 85025; 93005; 96372; 99285; J1885

== ENCOUNTER 2022-03-14 18:37 | Inpatient (IN) | payer OTHER, MEDICAID ==
[~2022-03-14] VITALS: Ht 157.5 cm; Wt 72.2 kg
[2022-03-14 22:00] VITALS: BP 109/62
[2022-03-14] MEDS ORDERED: MORPHINE SULFATE INJ 2 MG/ml SYRG IV PRN (23:15)
[2022-03-14] MEDS ORDERED: BACLOFEN 10 MG TAB PO PRN (23:15)
[2022-03-14] MEDS ORDERED: TEMAZEPAM 15 MG CAP PO PRN (23:15)
[2022-03-14] MEDS ORDERED: NITROGLYCERIN 0.4 MG SL TAB SL PRN (23:15)
[2022-03-14] MEDS ORDERED: DEXTROSE (50%) 50ML SYRG IV PRN (23:15)
[2022-03-14 23:44] LABS: Basophils # (auto) 0.1 10 ^3/uL (0-0.2); Basophils % (auto) 0.7 % (0.0-2.0); Eosinophils # (auto) 0 10 ^3/uL (0-0.8); Eosinophils % (auto) 0.1 % (0.0-7.0); Hematocrit 45.2 % (36.0-46.0); Hemoglobin 14.8 g/dL (12.2-16.2); Lymphocytes % (auto) 14.7 % (10.0-50.0); Mean Corpuscular Hemoglobin 28.7 pg (28.0-32.0); Mean Corpuscular Hgb Conc. 32.6 g/dL (32.0-36.0); Mean Corpuscular Volume 87.9 fL (80.0-100.0); Monocytes # (auto) 0.4 10 ^3/uL (0-1.3); Monocytes % (auto) 5.8 % (0.0-12.0); Neutrophils # (auto) 5.6 10 ^3/uL (1.6-8.6); Neutrophils % (auto) 78.7 % (37.0-80.0); Red Blood Cells 5.14 10^6/uL (4.0-5.20); Red Cell Distribution Width 17.7 % (11.8-14.3); White Blood Cell 7.1 10^3/uL (4.4-10.8)
[2022-03-14] MEDS: ONDANSETRON HCL 4 MG/2 ML VIAL IV PRN (23:51)
[2022-03-14] MEDS: ACCU-CHEK COMFORT CURVE STRIP VI SCH (23:54)
[2022-03-14] MEDS: InsuLIN REG 1unit/0.01ml Soln (100units/ml) SC SCH (23:59)
[2022-03-15] MEDS: HYDROcodone-ACET 5/325MG TAB PO PRN ×3 (00:02→12:09)
[2022-03-15 00:09] LABS: Albumin 3.3 g/dL (3.4-5.0); Calcium 8.1 mg/dL (8.5-10.1); Potassium 4.2 mmol/L (3.5-5.1)
[2022-03-15 00:12] LABS: Bilirubin, Total 0.3 mg/dL (0.2-1.0); Total Protein 6.2 g/dL (6.4-8.2)
[2022-03-15] MEDS: MORPHINE SULFATE INJ 2 MG/ml SYRG IV PRN ×2 (01:29→08:06)
[2022-03-15 02:14] LABS: Urine Bacteria FEW /hpf (None Seen); Urine Blood Negative /uL (Negative); Urine Specific Gravity 1.025 (1.001-1.035); Urine WBC 40 /hpf (0 - 5)
[2022-03-15 05:00] VITALS: BP 110/49
[2022-03-15] MEDS: InsuLIN REG 1unit/0.01ml Soln (100units/ml) SC SCH ×2 (05:08→12:00)
[2022-03-15] MEDS: GABAPENTIN 300 MG CAP PO SCH ×2 (05:09→13:45)
[2022-03-15] MEDS: ACCU-CHEK COMFORT CURVE STRIP VI SCH ×2 (05:09→12:19)
[2022-03-15] MEDS: ONDANSETRON HCL 4 MG/2 ML VIAL IV PRN (08:09)
[2022-03-15] MEDS ORDERED: levoFLOXacin 500MG 100 ML IV SCH (09:00)
[2022-03-15 09:04] VITALS: BP 138/73
[2022-03-15] MEDS ORDERED: PHENYTOIN SODIUM 100 MG CAP PO SCH (10:00)
[2022-03-15] MEDS ORDERED: PANTOPRAZOLE 40 MG TAB PO SCH (10:00)
[2022-03-15] MEDS ORDERED: LISINOPRIL 5 MG TAB PO SCH (10:00)
[2022-03-15] MEDS ORDERED: ASPirin 81 mg TAB PO SCH (10:00)
[2022-03-15] MEDS ORDERED: APIXABAN 5 MG TAB PO SCH (10:00)
[2022-03-15] MEDS ORDERED: LEVO500T31 PO (10:50)
[2022-03-15 12:30] VITALS: BP 154/78
[2022-03-15] MEDS ORDERED: ATORVASTATIN 20 MG TAB PO SCH (22:00)
[2022-03-16] MEDS ORDERED: levoFLOXacin 250MG 50 ML IV SCH (10:00)
== END 2022-03-15 15:26 | disposition home or self-care (01) | DRG 690 ==
LOC: TELE 21:51 → UNDOADMIN 21:51 → TELE 22:09 → TELE-CENTR 22:09 → TELE 23:15 → TELE-CENTR 23:15
PROVIDERS: ADMIT Registered Nurse; ATTEND Internal Medicine
DX: N39.0 Urinary tract infection, site not specified (principal); E11.9 Type 2 diabetes mellitus without complications; G89.4 Chronic pain syndrome; R00.1 Bradycardia, unspecified; R56.9 Unspecified convulsions; I10 Essential (primary) hypertension; J44.9 Chronic obstructive pulmonary disease, unspecified; Z80.1 Family history of malignant neoplasm of trachea, bronchus and lung; Z82.3 Family history of stroke; Z80.0 Family history of malignant neoplasm of digestive organs; Z82.49 Family history of ischemic heart disease and other diseases of the circulatory system; Z83.3 Family history of diabetes mellitus; Z86.73 Personal history of transient ischemic attack (TIA), and cerebral infarction without residual deficits; Z90.710 Acquired absence of both cervix and uterus; Z88.5 Allergy status to narcotic agent; Z88.8 Allergy status to other drugs, medicaments and biological substances; Z90.49 Acquired absence of other specified parts of digestive tract
CPT/HCPCS: 36415; 70450; 71046; 80053; 81001; 82306; 82962; 83036; 84439; 84443; 84484; 85025; 87081; 87086; 93306; G0378; J1815; J1956; J2405

== ENCOUNTER 2022-03-30 17:36 | Emergency (ER) | payer OTHER, MEDICARE, MEDICAID ==
[~2022-03-30] VITALS: Ht 157.5 cm; Wt 72.7 kg
[2022-03-30] MEDS ORDERED: MORPHINE SULFATE INJ 2 MG/ml SYRG IM ONE (21:00)
[2022-03-30 21:49] VITALS: BP 102/64
== END 2022-03-30 22:32 | disposition home or self-care (01) ==
LOC: ER 17:36
DX: G89.29 Other chronic pain (principal); M25.551 Pain in right hip; J44.9 Chronic obstructive pulmonary disease, unspecified; E11.9 Type 2 diabetes mellitus without complications; I10 Essential (primary) hypertension; E78.5 Hyperlipidemia, unspecified; Z86.73 Personal history of transient ischemic attack (TIA), and cerebral infarction without residual deficits; Z90.49 Acquired absence of other specified parts of digestive tract; Z90.710 Acquired absence of both cervix and uterus; Z90.89 Acquired absence of other organs; Z88.6 Allergy status to analgesic agent; Z88.0 Allergy status to penicillin; Z88.8 Allergy status to other drugs, medicaments and biological substances; Z79.899 Other long term (current) drug therapy
CPT/HCPCS: 96372; 99283; J2270

== ENCOUNTER → 2022-03-30 | Outpatient (CLI) | payer OTHER, MEDICARE, MEDICAID ==
[~2022-03-30] MED LIST changes: -CEPH-509 PO; -CEPH500C PO; -DEXT1SYP9 PO; -DICY10CA12 PO; +LEVO500T31 PO
== END | disposition home or self-care (01) ==
LOC: XY 08:59
PROVIDERS: ATTEND Internal Medicine
DX: M51.9 Unspecified thoracic, thoracolumbar and lumbosacral intervertebral disc disorder (principal)
CPT/HCPCS: 78306; A9503

== ENCOUNTER 2022-04-01 15:46 | Emergency (ER) | payer OTHER, MEDICAID ==
[~2022-04-01] VITALS: Ht 162.6 cm; Wt 72.7 kg
[2022-04-01] MEDS ORDERED: PROMETHAZINE HCL 25 MG/ML 1ML IM ONE (16:45)
[2022-04-01] MEDS ORDERED: MEPERIDINE HCL (50 MG/ML) 1 ML VIAL IM ONE (16:45)
[2022-04-01 16:57] VITALS: BP 121/61
== END 2022-04-01 17:33 | disposition home or self-care (01) ==
LOC: ER 15:46 → EDBD 15:46 → ER 17:32
DX: G89.29 Other chronic pain (principal); M54.59 Other low back pain; J44.9 Chronic obstructive pulmonary disease, unspecified; E11.9 Type 2 diabetes mellitus without complications; Z86.73 Personal history of transient ischemic attack (TIA), and cerebral infarction without residual deficits; E78.5 Hyperlipidemia, unspecified; Z79.899 Other long term (current) drug therapy; Z88.6 Allergy status to analgesic agent; Z88.8 Allergy status to other drugs, medicaments and biological substances; Z88.0 Allergy status to penicillin
CPT/HCPCS: 96372; 99284; J2175; J2550

== ENCOUNTER → 2022-04-11 | Emergency (ER) | payer OTHER, MEDICAID ==
[~2022-04-11] VITALS: Ht 157.5 cm; Wt 73.0 kg
[~2022-04-11] MED LIST changes: +MEPERIDINE HCL (25 MG/ML) 1ML VIAL IM ONE; +ONDANSETRON HCL 4 MG/2 ML VIAL IM ONE
[2022-04-11 11:09] VITALS: BP 118/72
== END | disposition home or self-care (01) ==
LOC: EDUNIT# 01:17 → EDBD 01:21 → ER 01:23
DX: G89.4 Chronic pain syndrome (principal); J44.9 Chronic obstructive pulmonary disease, unspecified; E11.9 Type 2 diabetes mellitus without complications; E78.5 Hyperlipidemia, unspecified; I10 Essential (primary) hypertension; Z86.73 Personal history of transient ischemic attack (TIA), and cerebral infarction without residual deficits; Z90.89 Acquired absence of other organs; Z90.710 Acquired absence of both cervix and uterus; Z90.49 Acquired absence of other specified parts of digestive tract; Z88.6 Allergy status to analgesic agent; Z88.8 Allergy status to other drugs, medicaments and biological substances; Z79.899 Other long term (current) drug therapy
CPT/HCPCS: 96372; 99284; J2175; J2405

== ENCOUNTER 2022-04-14 15:10 | Emergency (ER) | payer OTHER, MEDICAID ==
[~2022-04-14] VITALS: Ht 165.1 cm; Wt 72.0 kg
[~2022-04-14 15:10] MED LIST changes: -MEPERIDINE HCL (25 MG/ML) 1ML VIAL IM ONE; -ONDANSETRON HCL 4 MG/2 ML VIAL IM ONE
[2022-04-14] MEDS ORDERED: ONDANSETRON HCL 4 MG/2 ML VIAL IM ONE (15:30)
[2022-04-14] MEDS ORDERED: MEPERIDINE HCL (25 MG/ML) 1ML VIAL IM ONE (15:30)
[2022-04-14 15:43] LABS: Basophils # (auto) 0.1 10 ^3/uL (0-0.2); Basophils % (auto) 0.5 % (0.0-2.0); Eosinophils # (auto) 0.1 10 ^3/uL (0-0.8); Eosinophils % (auto) 0.6 % (0.0-7.0); Lymphocytes # (auto) 1.6 10 ^3/uL (0.4-5.4); Lymphocytes % (auto) 14.1 % (10.0-50.0); Mean Corpuscular Hemoglobin 29.5 pg (28.0-32.0); Mean Corpuscular Hgb Conc. 34.1 g/dL (32.0-36.0); Mean Corpuscular Volume 86.4 fL (80.0-100.0); Monocytes # (auto) 0.8 10 ^3/uL (0-1.3); Monocytes % (auto) 7.3 % (0.0-12.0); Neutrophils % (auto) 77.5 % (37.0-80.0); Red Blood Cells 5.44 10^6/uL (4.0-5.20); White Blood Cell 11.7 10^3/uL (4.4-10.8)
[2022-04-14 16:24] LABS: Anion Gap 7 (5-15); Carbon Dioxide 24 mmol/L (21-32); Chloride 110 mmol/L (98-107); Glucose 167 mg/dL (74-106); Potassium 3.8 mmol/L (3.5-5.1); Sodium 141 mmol/L (136-145)
[2022-04-14 16:25] LABS: Alkaline Phosphatase 77 U/L (45-117); Aspartate Aminotransferase 18 U/L (15-37); BUN/Creatinine Ratio 16.4; Blood Urea Nitrogen 10 mg/dL (7-18); GFR African American 126 mL/min; GFR Non-African American 104 mL/min
[2022-04-14 16:26] LABS: Alanine Aminotransferase 22 U/L (13-56); Calcium 8.2 mg/dL (8.5-10.1)
[2022-04-14 16:28] LABS: Bilirubin, Total 0.3 mg/dL (0.2-1.0)
[2022-04-14 16:29] LABS: Albumin 3.2 g/dL (3.4-5.0); Total Protein 6.5 g/dL (6.4-8.2)
[2022-04-14] MEDS ORDERED: cefTRIAXone SOD 1,000 MG VL IM ONE (17:45)
[2022-04-14 18:27] VITALS: BP 118/72
== END 2022-04-14 18:26 | disposition home or self-care (01) ==
LOC: ER 15:10 → EDBD 15:10 → ER 18:26
DX: G89.4 Chronic pain syndrome (principal); J44.9 Chronic obstructive pulmonary disease, unspecified; E11.9 Type 2 diabetes mellitus without complications; E78.5 Hyperlipidemia, unspecified; I10 Essential (primary) hypertension; Z86.73 Personal history of transient ischemic attack (TIA), and cerebral infarction without residual deficits; Z90.49 Acquired absence of other specified parts of digestive tract; Z90.710 Acquired absence of both cervix and uterus; Z90.89 Acquired absence of other organs; Z79.82 Long term (current) use of aspirin; Z79.1 Long term (current) use of non-steroidal anti-inflammatories (NSAID); Z79.899 Other long term (current) drug therapy; Z88.0 Allergy status to penicillin; Z88.5 Allergy status to narcotic agent; Z88.8 Allergy status to other drugs, medicaments and biological substances
CPT/HCPCS: 36415; 71045; 80053; 84484; 85025; 96372; 99284; J0696; J2175; J2405

== ENCOUNTER → 2022-04-15 | Outpatient (CLI) | payer OTHER, MEDICAID ==
[2022-04-15 13:19] LABS: Albumin 3.3 g/dL (3.4-5.0); Calcium 8.8 mg/dL (8.5-10.1)
[2022-04-15 13:24] LABS: BUN/Creatinine Ratio 15.5; Bilirubin, Total 0.4 mg/dL (0.2-1.0); Total Protein 6.5 g/dL (6.4-8.2)
== END | disposition home or self-care (01) ==
LOC: LAB 12:07
PROVIDERS: ATTEND Internal Medicine
DX: E11.9 Type 2 diabetes mellitus without complications (principal); I10 Essential (primary) hypertension; J44.9 Chronic obstructive pulmonary disease, unspecified
CPT/HCPCS: 36415; 80053; 83036; 85652

== ENCOUNTER 2022-04-29 14:02 | Emergency (ER) | payer OTHER, MEDICAID ==
[~2022-04-29] VITALS: Ht 165.1 cm; Wt 72.7 kg
[2022-04-29] MEDS ORDERED: ONDANSETRON ODT 4 MG TAB PO ONE (14:15)
[2022-04-29] MEDS ORDERED: MEPERIDINE HCL (50 MG/ML) 1 ML VIAL IM ONE (14:15)
[2022-04-29 14:45] VITALS: BP 112/55
[2022-04-29 15:21] LABS: Basophils # (auto) 0.1 10 ^3/uL (0-0.2); Basophils % (auto) 0.6 % (0.0-2.0); Eosinophils # (auto) 0.1 10 ^3/uL (0-0.8); Eosinophils % (auto) 0.6 % (0.0-7.0); Hemoglobin 14.7 g/dL (12.2-16.2); Lymphocytes # (auto) 2.1 10 ^3/uL (0.4-5.4); Lymphocytes % (auto) 23.7 % (10.0-50.0); Mean Corpuscular Hemoglobin 29.4 pg (28.0-32.0); Mean Corpuscular Hgb Conc. 34.2 g/dL (32.0-36.0); Mean Corpuscular Volume 86.1 fL (80.0-100.0); Monocytes # (auto) 0.5 10 ^3/uL (0-1.3); Neutrophils # (auto) 6.2 10 ^3/uL (1.6-8.6); Neutrophils % (auto) 69.1 % (37.0-80.0); Nucleated Red Blood Cells % 0.1 %; Red Cell Distribution Width 16.5 % (11.8-14.3)
[2022-04-29 15:37] LABS: Anion Gap 7 (5-15); Calcium 8.4 mg/dL (8.5-10.1); Carbon Dioxide 29 mmol/L (21-32); Chloride 106 mmol/L (98-107); Glucose 111 mg/dL (74-106); Potassium 4.4 mmol/L (3.5-5.1); Sodium 142 mmol/L (136-145)
[2022-04-29 15:42] LABS: Alanine Aminotransferase 18 U/L (13-56); Alkaline Phosphatase 76 U/L (45-117); Aspartate Aminotransferase 14 U/L (15-37); BUN/Creatinine Ratio 19.7; Bilirubin, Total 0.3 mg/dL (0.2-1.0); Blood Urea Nitrogen 13 mg/dL (7-18); GFR African American 115 mL/min; GFR Non-African American 95 mL/min; Total Protein 5.8 g/dL (6.4-8.2)
[2022-04-29 16:21] LABS: Urine WBC None Seen /hpf (0 - 5)
[2022-04-29 16:40] LABS: Urine Bacteria MANY /hpf (None Seen); Urine Blood Negative /uL (Negative); Urine Budding Yeast FEW /hpf (None Seen); Urine Specific Gravity 1.021 (1.001-1.035)
== END 2022-04-29 18:17 | disposition home or self-care (01) ==
LOC: EDBD 14:02 → ER 14:04
DX: S90.02XA Contusion of left ankle, initial encounter (principal); S90.01XA Contusion of right ankle, initial encounter; E11.9 Type 2 diabetes mellitus without complications; I10 Essential (primary) hypertension; J44.9 Chronic obstructive pulmonary disease, unspecified; Z86.73 Personal history of transient ischemic attack (TIA), and cerebral infarction without residual deficits; Z90.49 Acquired absence of other specified parts of digestive tract; Z90.89 Acquired absence of other organs; Z79.899 Other long term (current) drug therapy; Z88.0 Allergy status to penicillin; Z88.6 Allergy status to analgesic agent; W19.XXXA Unspecified fall, initial encounter; Y93.89 Activity, other specified; Y92.89 Other specified places as the place of occurrence of the external cause; Y99.8 Other external cause status
CPT/HCPCS: 36415; 70450; 72125; 72192; 73600; 80053; 81001; 85025; 93005; 96372; 99285; J2175; Q0162

== ENCOUNTER 2022-05-05 10:31 | Emergency (ER) | payer OTHER, MEDICAID ==
[~2022-05-05] VITALS: Ht 157.5 cm; Wt 68.0 kg
[2022-05-05] MEDS ORDERED: MORPHINE SULFATE 4 MG/ML SYR/VIAL IV ONE ×2 (11:00→14:15)
[2022-05-05] MEDS ORDERED: diphenhdrAMINE HCL 50 MG/1 ML VL IV ONE (11:00)
[2022-05-05 11:16] LABS: Basophils # (auto) 0 10 ^3/uL (0-0.2); Basophils % (auto) 0.3 % (0.0-2.0); Eosinophils # (auto) 0 10 ^3/uL (0-0.8); Eosinophils % (auto) 0.5 % (0.0-7.0); Hematocrit 49.6 % (36.0-46.0); Hemoglobin 16.6 g/dL (12.2-16.2); Lymphocytes # (auto) 1.2 10 ^3/uL (0.4-5.4); Lymphocytes % (auto) 14.3 % (10.0-50.0); Mean Corpuscular Hemoglobin 29.1 pg (28.0-32.0); Mean Corpuscular Hgb Conc. 33.4 g/dL (32.0-36.0); Mean Corpuscular Volume 87.1 fL (80.0-100.0); Monocytes # (auto) 0.8 10 ^3/uL (0-1.3); Monocytes % (auto) 9.1 % (0.0-12.0); Neutrophils # (auto) 6.5 10 ^3/uL (1.6-8.6); Neutrophils % (auto) 75.8 % (37.0-80.0); Nucleated Red Blood Cells % 0.1 %; White Blood Cell 8.6 10^3/uL (4.4-10.8)
[2022-05-05 11:33] LABS: BUN/Creatinine Ratio 11.4; Calcium 8.8 mg/dL (8.5-10.1)
[2022-05-05 11:48] LABS: Albumin 3.3 g/dL (3.4-5.0); Bilirubin, Total 0.3 mg/dL (0.2-1.0); Total Protein 6.4 g/dL (6.4-8.2)
[2022-05-05] MEDS ORDERED: ONDANSETRON HCL 4 MG/2 ML VIAL IV ONE (13:30)
[2022-05-05] MEDS ORDERED: HYDROcodone-ACET 10/325MG TAB PO ONE (20:30)
[2022-05-05] MEDS ORDERED: ONDANSETRON ODT 4 MG TAB PO ONE (20:30)
[2022-05-05 20:40] VITALS: BP 112/77
== END 2022-05-05 20:46 | disposition home or self-care (01) ==
LOC: ER 10:31
DX: R07.89 Other chest pain (principal); J44.9 Chronic obstructive pulmonary disease, unspecified; E11.9 Type 2 diabetes mellitus without complications; M10.9 Gout, unspecified; E78.5 Hyperlipidemia, unspecified; I10 Essential (primary) hypertension; Z86.73 Personal history of transient ischemic attack (TIA), and cerebral infarction without residual deficits; Z90.710 Acquired absence of both cervix and uterus; Z20.822 Contact with and (suspected) exposure to COVID-19; Z90.89 Acquired absence of other organs; Z90.49 Acquired absence of other specified parts of digestive tract; Z79.899 Other long term (current) drug therapy; Z88.6 Allergy status to analgesic agent; Z88.0 Allergy status to penicillin; Z88.8 Allergy status to other drugs, medicaments and biological substances
CPT/HCPCS: 36415; 71045; 80053; 83605; 84484; 85025; 87040; 87426; 93005; 96374; 96375; 99285; J1200; J2270; J2405; Q0162

== ENCOUNTER → 2022-05-19 | Outpatient (CLI) | payer OTHER, MEDICAID | END | disposition home or self-care (01) | LOC: LAB 14:04 | PROVIDERS: ATTEND Internal Medicine | DX: R19.7 Diarrhea, unspecified (principal) | CPT/HCPCS: 87493 ==

== ENCOUNTER → 2022-12-07 | Outpatient (CLI) | payer OTHER ==
[~2022-12-07] MED LIST changes: +GABA-1250 PO; -GABA300C10 PO; +LORA-1123 PO; -LORA1TAB23 PO; -PHE100C PO; +PHEN1CAP60 PO
[2022-12-07 16:19] LABS: Calcium 8.6 mg/dL (8.5-10.1); Potassium 4.3 mmol/L (3.5-5.1)
[2022-12-07 16:20] LABS: Urine Bacteria NONE SEEN /hpf (None Seen); Urine Blood Negative /uL (Negative); Urine Hyaline Cast FEW /lpf (0 - 2); Urine Mucus FEW (None Seen); Urine Specific Gravity 1.032 (1.001-1.035); Urine WBC 3 /hpf (0 - 5)
[2022-12-07 16:24] LABS: BUN/Creatinine Ratio 21.5 (10.0-20.0); Bilirubin, Total 0.3 mg/dL (0.2-1.0); Total Protein 7.4 g/dL (6.4-8.2)
[2022-12-07 17:49] LABS: Protein, Urine 14.6 mg/dL (0.0-11.9)
[2022-12-08 14:13] LABS: Basophils # (auto) 0 10 ^3/uL (0-0.2); Basophils % (auto) 0.9 % (0.0-2.0); Eosinophils # (auto) 0.1 10 ^3/uL (0-0.8); Eosinophils % (auto) 2.2 % (0.0-7.0); Hematocrit 43.8 % (36.0-46.0); Lymphocytes # (auto) 1.8 10 ^3/uL (0.4-5.4); Lymphocytes % (auto) 33.2 % (10.0-50.0); Mean Corpuscular Hemoglobin 29.8 pg (28.0-32.0); Mean Corpuscular Hgb Conc. 34.2 g/dL (32.0-36.0); Mean Corpuscular Volume 87.2 fL (80.0-100.0); Monocytes # (auto) 0.5 10 ^3/uL (0-1.3); Monocytes % (auto) 10.2 % (0.0-12.0); Neutrophils # (auto) 2.8 10 ^3/uL (1.6-8.6); Neutrophils % (auto) 53.5 % (37.0-80.0); Nucleated Red Blood Cells % 0.7 %; Red Blood Cells 5.02 10^6/uL (4.0-5.20); Red Cell Distribution Width 16.5 % (11.8-14.3); White Blood Cell 5.3 10^3/uL (4.4-10.8)
== END | disposition home or self-care (01) ==
LOC: LAB 15:52
PROVIDERS: ATTEND Internal Medicine Rheumatology
DX: M32.9 Systemic lupus erythematosus, unspecified (principal)
CPT/HCPCS: 36415; 80053; 81001; 82570; 84156; 86160

== ENCOUNTER → 2022-12-30 | Outpatient (CLI) | payer OTHER ==
[2022-12-30 09:46] LABS: Basophils # (auto) 0.1 10 ^3/uL (0-0.2); Basophils % (auto) 0.6 % (0.0-2.0); Eosinophils # (auto) 0 10 ^3/uL (0-0.8); Eosinophils % (auto) 0.5 % (0.0-7.0); Hematocrit 47.5 % (36.0-46.0); Hemoglobin 16.3 g/dL (12.2-16.2); Lymphocytes # (auto) 1.2 10 ^3/uL (0.4-5.4); Lymphocytes % (auto) 12.5 % (10.0-50.0); Mean Corpuscular Hemoglobin 30.7 pg (28.0-32.0); Mean Corpuscular Hgb Conc. 34.3 g/dL (32.0-36.0); Mean Corpuscular Volume 89.5 fL (80.0-100.0); Monocytes # (auto) 0.6 10 ^3/uL (0-1.3); Monocytes % (auto) 6.5 % (0.0-12.0); Neutrophils # (auto) 7.5 10 ^3/uL (1.6-8.6); Neutrophils % (auto) 79.9 % (37.0-80.0); Red Cell Distribution Width 15.7 % (11.8-14.3); White Blood Cell 9.4 10^3/uL (4.4-10.8)
[2022-12-30 10:15] LABS: Potassium 3.4 mmol/L (3.5-5.1)
[2022-12-30 10:21] LABS: BUN/Creatinine Ratio 14.9 (10.0-20.0); Bilirubin, Total 0.3 mg/dL (0.2-1.0); Total Protein 7.2 g/dL (6.4-8.2)
== END | disposition home or self-care (01) ==
LOC: LAB 09:17
PROVIDERS: ATTEND Internal Medicine
DX: J44.9 Chronic obstructive pulmonary disease, unspecified (principal); E11.9 Type 2 diabetes mellitus without complications; K57.90 Diverticulosis of intestine, part unspecified, without perforation or abscess without bleeding; R10.9 Unspecified abdominal pain
CPT/HCPCS: 36415; 80053; 80061; 82150; 83690; 84443; 85025; 85652

== ENCOUNTER → 2023-03-20 | Outpatient (CLI) | payer OTHER ==
[2023-03-20 07:58] LABS: Basophils # (auto) 0 10 ^3/uL (0-0.2); Basophils % (auto) 0.4 % (0.0-2.0); Eosinophils # (auto) 0.1 10 ^3/uL (0-0.8); Eosinophils % (auto) 1.1 % (0.0-7.0); Hematocrit 49.5 % (36.0-46.0); Hemoglobin 16.6 g/dL (12.2-16.2); Lymphocytes # (auto) 1.5 10 ^3/uL (0.4-5.4); Lymphocytes % (auto) 21.6 % (10.0-50.0); Mean Corpuscular Hemoglobin 29.7 pg (28.0-32.0); Mean Corpuscular Hgb Conc. 33.5 g/dL (32.0-36.0); Mean Corpuscular Volume 88.7 fL (80.0-100.0); Monocytes # (auto) 0.8 10 ^3/uL (0-1.3); Neutrophils # (auto) 4.6 10 ^3/uL (1.6-8.6); Neutrophils % (auto) 65.9 % (37.0-80.0); Nucleated Red Blood Cells % 0.1 %; Red Blood Cells 5.58 10^6/uL (4.0-5.20); Red Cell Distribution Width 15.3 % (11.8-14.3)
[2023-03-20 08:26] LABS: Alanine Aminotransferase 16 U/L (7-40); Albumin 4.7 g/dL (3.2-4.8); Alkaline Phosphatase 73 U/L (46-116); Anion Gap 8 (5-15); Aspartate Aminotransferase 18 U/L (13-40); BUN/Creatinine Ratio 10.5 (10.0-20.0); Blood Urea Nitrogen 8 mg/dL (9-23); Calcium 9.3 mg/dL (8.5-10.1); Carbon Dioxide 26 mmol/L (20-30); Chloride 107 mmol/L (98-107); Glucose 129 mg/dL (74-106); Potassium 3.7 mmol/L (3.5-5.1); Sodium 141 mmol/L (136-145)
[2023-03-20 08:27] LABS: Bilirubin, Total 0.5 mg/dL (0.2-1.0)
[2023-03-21 08:07] LABS: Complement C3 127 mg/dL (82-167)
[2023-03-21 15:07] LABS: Anti-dsDNA Antibody 1 IU/mL (0-9)
== END | disposition home or self-care (01) ==
LOC: LAB 07:28
PROVIDERS: ATTEND Internal Medicine Rheumatology
DX: M32.9 Systemic lupus erythematosus, unspecified (principal)
CPT/HCPCS: 36415; 80053; 85025; 86160; 86225

== ENCOUNTER 2023-03-24 08:21 | Emergency (ER) | payer OTHER ==
[~2023-03-24] VITALS: Ht 165.1 cm; Wt 66.4 kg
[2023-03-24 09:17] VITALS: PULSE 60; RESP 18; O2SAT 97
[2023-03-24 09:38] LABS: Basophils # (auto) 0 10 ^3/uL (0-0.2); Basophils % (auto) 0.5 % (0.0-2.0); Eosinophils # (auto) 0.1 10 ^3/uL (0-0.8); Eosinophils % (auto) 1.1 % (0.0-7.0); Hematocrit 43.6 % (36.0-46.0); Hemoglobin 14.8 g/dL (12.2-16.2); Lymphocytes # (auto) 1.5 10 ^3/uL (0.4-5.4); Lymphocytes % (auto) 22.3 % (10.0-50.0); Mean Corpuscular Hemoglobin 30.3 pg (28.0-32.0); Mean Corpuscular Hgb Conc. 33.9 g/dL (32.0-36.0); Mean Corpuscular Volume 89.4 fL (80.0-100.0); Monocytes # (auto) 0.5 10 ^3/uL (0-1.3); Monocytes % (auto) 7.6 % (0.0-12.0); Neutrophils # (auto) 4.7 10 ^3/uL (1.6-8.6); Neutrophils % (auto) 68.5 % (37.0-80.0); Nucleated Red Blood Cells % 0.2 %; Red Blood Cells 4.88 10^6/uL (4.0-5.20); Red Cell Distribution Width 15.8 % (11.8-14.3); White Blood Cell 6.8 10^3/uL (4.4-10.8)
[2023-03-24 09:56] LABS: Alanine Aminotransferase 17 U/L (7-40); Albumin 4.1 g/dL (3.2-4.8); Alkaline Phosphatase 70 U/L (46-116); Anion Gap 8 (5-15); Aspartate Aminotransferase 15 U/L (13-40); BUN/Creatinine Ratio 13.3 (10.0-20.0); Bilirubin, Total 0.4 mg/dL (0.2-1.0); Blood Urea Nitrogen 8 mg/dL (9-23); Calcium 8.8 mg/dL (8.5-10.1); Carbon Dioxide 28 mmol/L (20-30); Chloride 107 mmol/L (98-107); Glucose 127 mg/dL (74-106); Potassium 3.3 mmol/L (3.5-5.1); Sodium 143 mmol/L (136-145); Total Protein 6.1 g/dL (5.7-8.2)
[2023-03-24] MEDS ORDERED: HYDROcodone-ACET 5/325MG TAB PO ONE (10:15)
[2023-03-24 11:10] VITALS: BP 98/44; PULSE 51; RESP 14; TEMP 98; O2SAT 96
[2023-03-24] MEDS ORDERED: FLEET ENEMA(ADULT) 135 ML PR ONE (11:15)
[2023-03-24] MEDS ORDERED: POTASSIUM EFFERVESENT TAB 25 MEQ PO ONE (11:15)
== END 2023-03-24 12:08 | disposition home or self-care (01) ==
LOC: ER 08:21
DX: K59.00 Constipation, unspecified (principal); I10 Essential (primary) hypertension; E78.5 Hyperlipidemia, unspecified; E11.9 Type 2 diabetes mellitus without complications; J44.9 Chronic obstructive pulmonary disease, unspecified; Z88.0 Allergy status to penicillin; Z88.5 Allergy status to narcotic agent; Z88.8 Allergy status to other drugs, medicaments and biological substances; Z79.899 Other long term (current) drug therapy; Z79.82 Long term (current) use of aspirin; Z90.89 Acquired absence of other organs; Z90.710 Acquired absence of both cervix and uterus; Z90.49 Acquired absence of other specified parts of digestive tract; Z86.73 Personal history of transient ischemic attack (TIA), and cerebral infarction without residual deficits
CPT/HCPCS: 36415; 71045; 74176; 80053; 85025

== ENCOUNTER → 2023-04-26 | Outpatient (CLI) | payer OTHER ==
[2023-04-26 09:28] LABS: Erythrocyte Sedimentation Rate 1 mm/hr (0-20)
== END | disposition home or self-care (01) ==
LOC: LAB 08:20
PROVIDERS: ATTEND Internal Medicine
DX: J44.9 Chronic obstructive pulmonary disease, unspecified (principal); E55.9 Vitamin D deficiency, unspecified; M32.9 Systemic lupus erythematosus, unspecified
CPT/HCPCS: 36415; 82306; 83036; 85652

== ENCOUNTER → 2023-11-07 | Outpatient (CLI) | payer OTHER ==
[2023-11-07 10:52] LABS: Basophils # (auto) 0 10 ^3/uL (0-0.2); Basophils % (auto) 0.4 % (0.0-2.0); Eosinophils # (auto) 0 10 ^3/uL (0-0.8); Eosinophils % (auto) 0.7 % (0.0-7.0); Lymphocytes # (auto) 1.3 10 ^3/uL (0.4-5.4); Lymphocytes % (auto) 17.7 % (10.0-50.0); Mean Corpuscular Hemoglobin 29.8 pg (28.0-32.0); Mean Corpuscular Hgb Conc. 34.1 g/dL (32.0-36.0); Mean Corpuscular Volume 87.4 fL (80.0-100.0); Monocytes # (auto) 0.7 10 ^3/uL (0-1.3); Monocytes % (auto) 9.8 % (0.0-12.0); Neutrophils # (auto) 5.2 10 ^3/uL (1.6-8.6); Neutrophils % (auto) 71.4 % (37.0-80.0); Nucleated Red Blood Cells % 0.2 %; Red Blood Cells 5.03 10^6/uL (4.0-5.20); White Blood Cell 7.3 10^3/uL (4.4-10.8)
[2023-11-07 11:17] LABS: Alanine Aminotransferase 13 U/L (7-40); Albumin 4.7 g/dL (3.2-4.8); Alkaline Phosphatase 108 U/L (46-116); Anion Gap 4 (5-15); Aspartate Aminotransferase 10 U/L (13-40); BUN/Creatinine Ratio 24.3 (10.0-20.0); Blood Urea Nitrogen 18 mg/dL (9-23); Calcium 9.6 mg/dL (8.5-10.1); Carbon Dioxide 29 mmol/L (20-30); Chloride 107 mmol/L (98-107); Glucose 180 mg/dL (74-106); Potassium 4.3 mmol/L (3.5-5.1); Sodium 140 mmol/L (136-145)
[2023-11-07 11:19] LABS: Bilirubin, Total 0.2 mg/dL (0.2-1.0)
[2023-11-08 12:06] LABS: Complement C3 142 mg/dL (82-167)
[2023-11-08 15:06] LABS: Anti-dsDNA Antibody 1 IU/mL (0-9)
== END | disposition home or self-care (01) ==
LOC: LAB 10:25
PROVIDERS: ATTEND Internal Medicine Rheumatology
DX: E11.65 Type 2 diabetes mellitus with hyperglycemia (principal); M32.9 Systemic lupus erythematosus, unspecified
CPT/HCPCS: 36415; 80053; 85025; 86160; 86225

== ENCOUNTER 2023-11-21 15:59 | Emergency (ER) | payer OTHER ==
[~2023-11-21] VITALS: Ht 157.5 cm; Wt 78.0 kg
[2023-11-21] MEDS ORDERED: CIPR500T4 PO (20:13)
[2023-11-21] MEDS ORDERED: ZOFR4T PO (20:13)
[2023-11-21 20:35] VITALS: O2SAT 97
[2023-11-21 20:36] VITALS: BP 103/58; PULSE 57; RESP 16
[2023-11-21] MEDS: MEPERIDINE HCL (50 MG/ML) 1 ML VIAL IM ONE (20:36)
[2023-11-21] MEDS ORDERED: DexAMETHasone SOD PHOS 4 MG/1ML SDV INJ IM ONE (20:45)
[2023-11-21] MEDS: ONDANSETRON ODT 4 MG TAB PO ONE (20:46)
[2023-11-21] MEDS: DexAMETHasone SOD PHOS 10MG/1ML VIAL INJ IM ONE (20:47)
[2023-11-21 21:28] LABS: Basophils # (auto) 0 10 ^3/uL (0-0.2); Basophils % (auto) 0.4 % (0.0-2.0); Eosinophils # (auto) 0.1 10 ^3/uL (0-0.8); Eosinophils % (auto) 1.5 % (0.0-7.0); Hemoglobin 14.7 g/dL (12.2-16.2); Lymphocytes % (auto) 21.6 % (10.0-50.0); Mean Corpuscular Hemoglobin 30.3 pg (28.0-32.0); Mean Corpuscular Hgb Conc. 34.1 g/dL (32.0-36.0); Mean Corpuscular Volume 88.7 fL (80.0-100.0); Monocytes % (auto) 10.5 % (0.0-12.0); Neutrophils # (auto) 6.1 10 ^3/uL (1.6-8.6); Nucleated Red Blood Cells % 0.3 %; Red Blood Cells 4.85 10^6/uL (4.0-5.20); Red Cell Distribution Width 16.4 % (11.8-14.3); White Blood Cell 9.3 10^3/uL (4.4-10.8)
[2023-11-21 21:33] LABS: Chloride 110 mmol/L (98-107); Potassium 3.6 mmol/L (3.5-5.1); Sodium 142 mmol/L (136-145)
[2023-11-21 21:34] LABS: Anion Gap 3 (5-15); Calcium 9.3 mg/dL (8.7-10.4); Carbon Dioxide 29 mmol/L (20-30)
[2023-11-21 21:39] LABS: BUN/Creatinine Ratio 14.3 (10.0-20.0); Blood Urea Nitrogen 10 mg/dL (9-23); Glucose 108 mg/dL (74-106); Lipase 29 U/L (12-53)
== END 2023-11-21 22:35 | disposition home or self-care (01) ==
LOC: ER 15:59
DX: K52.9 Noninfective gastroenteritis and colitis, unspecified (principal); I10 Essential (primary) hypertension; E11.9 Type 2 diabetes mellitus without complications; E78.5 Hyperlipidemia, unspecified; M10.9 Gout, unspecified; J44.9 Chronic obstructive pulmonary disease, unspecified; Z86.73 Personal history of transient ischemic attack (TIA), and cerebral infarction without residual deficits; Z98.890 Other specified postprocedural states; Z88.8 Allergy status to other drugs, medicaments and biological substances; Z88.0 Allergy status to penicillin; Z79.899 Other long term (current) drug therapy
CPT/HCPCS: 36415; 80048; 83690; 85025; 96372; 99283; J1100; Q0162

== ENCOUNTER → 2023-12-19 | Outpatient (CLI) | payer OTHER ==
[~2023-12-19] MED LIST changes: -HYDR-4798 PO; -LEVO500T31 PO
[2023-12-19 16:12] LABS: Chloride 110 mmol/L (98-107); Sodium 145 mmol/L (136-145)
[2023-12-19 16:13] LABS: Anion Gap 4 (5-15); Carbon Dioxide 31 mmol/L (20-30)
[2023-12-19 16:14] LABS: Calcium 9.5 mg/dL (8.5-10.1)
[2023-12-19 16:19] LABS: BUN/Creatinine Ratio 9.3 (10.0-20.0); Blood Urea Nitrogen 7 mg/dL (9-23); Glucose 104 mg/dL (74-106)
== END | disposition home or self-care (01) ==
LOC: LAB 15:47
PROVIDERS: ATTEND Internal Medicine
DX: E11.9 Type 2 diabetes mellitus without complications (principal)
CPT/HCPCS: 36415; 80048

== ENCOUNTER 2024-01-03 16:16 | Emergency (ER) | payer OTHER ==
[~2024-01-03] VITALS: Ht 157.5 cm; Wt 70.7 kg
[2024-01-03 20:00] LABS: Basophils # (auto) 0 10 ^3/uL (0-0.2); Basophils % (auto) 0.5 % (0.0-2.0); Eosinophils # (auto) 0 10 ^3/uL (0-0.8); Eosinophils % (auto) 0.4 % (0.0-7.0); Hematocrit 44.9 % (36.0-46.0); Hemoglobin 15.7 g/dL (12.2-16.2); Lymphocytes # (auto) 1.9 10 ^3/uL (0.4-5.4); Lymphocytes % (auto) 24.3 % (10.0-50.0); Mean Corpuscular Hemoglobin 30.4 pg (28.0-32.0); Mean Corpuscular Hgb Conc. 34.9 g/dL (32.0-36.0); Mean Corpuscular Volume 87.1 fL (80.0-100.0); Monocytes # (auto) 0.9 10 ^3/uL (0-1.3); Monocytes % (auto) 11.6 % (0.0-12.0); Neutrophils # (auto) 4.9 10 ^3/uL (1.6-8.6); Neutrophils % (auto) 63.2 % (37.0-80.0); Nucleated Red Blood Cells % 0.2 %; Red Blood Cells 5.16 10^6/uL (4.0-5.20); Red Cell Distribution Width 14.9 % (11.8-14.3); White Blood Cell 7.7 10^3/uL (4.4-10.8)
[2024-01-03 20:05] LABS: Chloride 107 mmol/L (98-107); Potassium 3.3 mmol/L (3.5-5.1); Sodium 143 mmol/L (136-145)
[2024-01-03 20:06] LABS: Anion Gap 8 (5-15); Calcium 9.6 mg/dL (8.7-10.4); Carbon Dioxide 28 mmol/L (20-30)
[2024-01-03 20:11] LABS: Blood Urea Nitrogen 15 mg/dL (9-23); Glucose 99 mg/dL (74-106); Lipase 42 U/L (12-53)
[2024-01-04 02:10] LABS: Urine Bacteria MANY /hpf (None Seen); Urine Blood Negative /uL (Negative); Urine Budding Yeast LOADED /hpf (None Seen); Urine Clarity Turbid (Clear); Urine Color Light-Yellow (Yellow); Urine Mucus FEW (None Seen); Urine Protein, UAD TRACE (Negative); Urine Specific Gravity 1.023 (1.001-1.035); Urine Urobilinogen Normal (Negative); Urine WBC 222 /hpf (0 - 5); Urine pH 5.5 (5.0-9.0)
[2024-01-04] MEDS ORDERED: NITR-87 PO (02:23)
[2024-01-04] MEDS ORDERED: ZOFR4T PO (02:23)
[2024-01-04] MEDS: ONDANSETRON ODT 4 MG TAB PO ONE (02:57)
[2024-01-04 03:00] VITALS: BP 140/80; PULSE 66; RESP 19; TEMP 98.4; O2SAT 100
== END 2024-01-04 03:15 | disposition admitted as inpatient to this hospital (09) ==
LOC: ER 16:16
DX: R33.9 Retention of urine, unspecified (principal); R10.84 Generalized abdominal pain; E11.9 Type 2 diabetes mellitus without complications; E78.5 Hyperlipidemia, unspecified; I10 Essential (primary) hypertension; J44.9 Chronic obstructive pulmonary disease, unspecified; Z88.0 Allergy status to penicillin; Z88.5 Allergy status to narcotic agent; Z88.8 Allergy status to other drugs, medicaments and biological substances; Z79.4 Long term (current) use of insulin; Z79.82 Long term (current) use of aspirin; Z79.52 Long term (current) use of systemic steroids; Z79.899 Other long term (current) drug therapy; Z86.73 Personal history of transient ischemic attack (TIA), and cerebral infarction without residual deficits; Z90.49 Acquired absence of other specified parts of digestive tract; Z90.89 Acquired absence of other organs; Z90.710 Acquired absence of both cervix and uterus
CPT/HCPCS: 36415; 74176; 80048; 81001; 83690; 85025; 93005; 99284; Q0162

== ENCOUNTER → 2024-01-11 | Outpatient (CLI) | payer OTHER ==
[~2024-01-11] MED LIST changes: +NITR-87 PO; +ZOFR4T PO
[2024-01-11 13:56] LABS: Alanine Aminotransferase 18 U/L (7-40); Albumin 4.4 g/dL (3.2-4.8); Alkaline Phosphatase 76 U/L (46-116); Anion Gap 6 (5-15); Aspartate Aminotransferase 17 U/L (13-40); BUN/Creatinine Ratio 14.5 (10.0-20.0); Blood Urea Nitrogen 10 mg/dL (9-23); Calcium 9.3 mg/dL (8.7-10.4); Carbon Dioxide 27 mmol/L (20-30); Chloride 110 mmol/L (98-107); Glucose 104 mg/dL (74-106); LDL Cholesterol 67 mg/dL (< 100); Potassium 3.6 mmol/L (3.5-5.1); Sodium 143 mmol/L (136-145); Triglycerides 92 mg/dL (< 150)
[2024-01-11 13:57] LABS: Bilirubin, Total 0.4 mg/dL (0.2-1.0); Cholesterol 164 mg/dL (< 200); HDL Cholesterol 83 mg/dL (40-59); Total Protein 6.5 g/dL (5.7-8.2)
[2024-01-11 14:16] LABS: Erythrocyte Sedimentation Rate 2 mm/hr (0-20)
== END | disposition home or self-care (01) ==
LOC: LAB 13:04
PROVIDERS: ATTEND Internal Medicine
DX: Z12.11 Encounter for screening for malignant neoplasm of colon (principal); E11.9 Type 2 diabetes mellitus without complications; I10 Essential (primary) hypertension; J44.9 Chronic obstructive pulmonary disease, unspecified
CPT/HCPCS: 36415; 80053; 80061; 83036; 85652

== ENCOUNTER → 2024-01-16 | Outpatient (CLI) | payer OTHER | END | disposition home or self-care (01) | LOC: LAB 16:30 | PROVIDERS: ATTEND Internal Medicine | DX: N39.0 Urinary tract infection, site not specified (principal) | CPT/HCPCS: 87086 ==

== ENCOUNTER → 2024-04-15 | Outpatient (CLI) | payer OTHER ==
[~2024-04-15] MED LIST changes: +PHEN1CAP38 PO; -PHEN1CAP60 PO
== END | disposition home or self-care (01) ==
LOC: LAB 10:25
PROVIDERS: ATTEND Internal Medicine
DX: I10 Essential (primary) hypertension (principal); J44.9 Chronic obstructive pulmonary disease, unspecified; M32.10 Systemic lupus erythematosus, organ or system involvement unspecified; E78.5 Hyperlipidemia, unspecified
CPT/HCPCS: 36415; 82306; 82607; 83036; 84550

== ENCOUNTER 2024-04-19 08:52 | Emergency (ER) | payer OTHER ==
[~2024-04-19] VITALS: Ht 157.5 cm; Wt 72.0 kg
[2024-04-19 09:35] VITALS: TEMP 98; O2SAT 98
[2024-04-19] MEDS: MEPERIDINE HCL (50 MG/ML) 1 ML VIAL IM ONE (09:38)
[2024-04-19] MEDS: ONDANSETRON ODT 4 MG TAB PO ONE (09:39)
[2024-04-19] MEDS ORDERED: METH-1182 PO (09:53)
[2024-04-19 10:01] VITALS: BP 110/55; PULSE 62; RESP 16
== END 2024-04-19 10:07 | disposition home or self-care (01) ==
LOC: ER 08:52
DX: G89.29 Other chronic pain (principal); M54.50 Low back pain, unspecified; I10 Essential (primary) hypertension; E11.9 Type 2 diabetes mellitus without complications; J44.9 Chronic obstructive pulmonary disease, unspecified; M10.9 Gout, unspecified; Z86.73 Personal history of transient ischemic attack (TIA), and cerebral infarction without residual deficits; Z90.49 Acquired absence of other specified parts of digestive tract; Z90.710 Acquired absence of both cervix and uterus; Z98.890 Other specified postprocedural states; Z88.0 Allergy status to penicillin; Z88.5 Allergy status to narcotic agent; Z88.8 Allergy status to other drugs, medicaments and biological substances; Z79.01 Long term (current) use of anticoagulants; Z79.52 Long term (current) use of systemic steroids; Z79.631 Long term (current) use of antimetabolite agent; Z79.82 Long term (current) use of aspirin; Z79.84 Long term (current) use of oral hypoglycemic drugs; Z79.899 Other long term (current) drug therapy
CPT/HCPCS: 96372; 99283; J2175; Q0162

== ENCOUNTER → 2024-08-06 | Day surgery (SDC) | payer OTHER ==
[2024-08-01 12:34] LABS: Basophils # (auto) 0 10 ^3/uL (0-0.2); Basophils % (auto) 0.5 % (0.0-2.0); Eosinophils # (auto) 0.1 10 ^3/uL (0-0.8); Eosinophils % (auto) 1.2 % (0.0-7.0); Hematocrit 45.9 % (36.0-46.0); Hemoglobin 15.5 g/dL (12.2-16.2); Lymphocytes # (auto) 1.5 10 ^3/uL (0.4-5.4); Lymphocytes % (auto) 23.5 % (10.0-50.0); Mean Corpuscular Hemoglobin 29.1 pg (28.0-32.0); Mean Corpuscular Hgb Conc. 33.8 g/dL (32.0-36.0); Mean Corpuscular Volume 86.3 fL (80.0-100.0); Monocytes # (auto) 0.7 10 ^3/uL (0-1.3); Monocytes % (auto) 11.2 % (0.0-12.0); Neutrophils # (auto) 4.1 10 ^3/uL (1.6-8.6); Neutrophils % (auto) 63.6 % (37.0-80.0); Nucleated Red Blood Cells % 0.1 %; Platelet Count (auto) 217 10^3/uL (140-450); Red Blood Cells 5.32 10^6/uL (4.0-5.20); Red Cell Distribution Width 15.2 % (11.8-14.3); White Blood Cell 6.5 10^3/uL (4.4-10.8)
[2024-08-01 12:41] LABS: Urine Bacteria FEW /hpf (None Seen); Urine Blood Negative /uL (Negative); Urine Clarity Clear (Clear); Urine Color Light-Yellow (Yellow); Urine Protein, UAD Negative (Negative); Urine Squamous Epithelial Cell FEW /hpf (<5); Urine Urobilinogen Normal (Negative); Urine WBC 9 /HPF (0-5); Urine pH 7.5 (5.0-9.0)
[2024-08-01 12:50] LABS: INR 0.99 (0.9-1.15); Prothrombin Time 10.5 sec (9.3-11.8)
[2024-08-01 13:09] LABS: Alanine Aminotransferase 27 U/L (7-40); Alkaline Phosphatase 92 U/L (46-116); Chloride 104 mmol/L (98-107)
[2024-08-01 13:10] LABS: Anion Gap 6 (5-15); Aspartate Aminotransferase 25 U/L (13-40); BUN/Creatinine Ratio 18.2 (10.0-20.0); Bilirubin, Total 0.3 mg/dL (0.2-1.0); Blood Urea Nitrogen 12 mg/dL (9-23); Carbon Dioxide 33 mmol/L (20-31); Glucose 99 mg/dL (74-106); Potassium 4.8 mmol/L (3.5-5.1); Sodium 143 mmol/L (136-145)
[~2024-08-06] VITALS: Ht 157.5 cm; Wt 60.8 kg
[~2024-08-06] MED LIST changes: -ALBUAER3 IN; -ALEN70TA74 PO; -APIX5TAB PO; -ASPI-543 PO; -ATOR10TA52 PO; -BACL20TA PO; +BELI200I SC; -CHOL1CAP47 PO; +DAPA1TAB4 PO; -GABA-1250 PO; +GABA400C PO; +HYDR-4491 OR; -LORA-1123 PO; -NITR-87 PO; -PIOG1TAB36 PO; -PRED10TA PO; +PROPOFOL 10 MG/ML 20 ML IV ONE; -ZOFR4T PO; +fentaNYL CITRATE 100 MCG/2 ML VL ONE
[2024-08-06 15:03] VITALS: PULSE 61; RESP 20; TEMP 97.4; O2SAT 96
[2024-08-06 16:00] VITALS: BP 128/62; PULSE 69; RESP 16; O2SAT 98
--- NOTE | 2024-08-06 16:07 | DVHOP2 ---
Operative Report DATE OF OPERATION: 08/06/24 PROCEDURE: Colonoscopy with hot snare polypectomy. PREOPERATIVE INDICATION: The patient is a 69 -year-old female undergoing colonoscopy for evaluation of left lower quadrant pain POSTOPERATIVE DIAGNOSES: 1. Moderate to severe sigmoid diverticular disease with an inflammatory sigmoid polyp close to a sigmoid diverticular opening which was removed by hot snare polypectomy 2. Trace internal hemorrhoids otherwise normal examination up to the cecum and terminal ileum PROCEDURE PERFORMED BY: Kal Brennan M.D. SCOPE: Olympus videocolonoscope. ASA CLASS: 3. PREOPERATIVE MEDICATIONS: Dr. Eric Pena PROCEDURE IN DETAIL: After obtaining an informed consent, the patient was placed on left lateral decubitus position. She was then sedated with the above medications. A rectal examination was performed that was normal. The colonoscope was then passed through the anus into the rectosigmoid and through the descending, transverse, and ascending colon up to the cecum with visualization of the appendiceal orifice, base of the cecum and the ileocecal valve. The colonoscope was then withdrawn. The distal 5 cm of the terminal ileum were normal The patient had [id number] left colon diverticular disease most prominent in the sigmoid There was a three 4 mm benign-appearing inflammatory polypoid tissue close to a sigmoid diverticular opening This was removed completely via hot snare polypectomy and the specimens were retrieved On retroflexion and straight on view the patient had trace internal hemorrhoids The patient tolerated the procedure well without difficulty. WITHDRAWAL TIME: 7 minutes QUALITY OF THE PREP: [place] Bowel Prep score: 9. COMPLICATIONS : None SPECIMENS: Sigmoid colon polyp DISPOSITION: Stable D/C to home PLAN: 1. Repeat colonoscopy base on biopsy result likely in five years 2. Resume GI soft diet advance as tolerated 3. Increase fluid and fiber intake 4. Avoid aspirin NSAIDs for 5-7 days 5. Outpatient follow up with me in 2-4 weeks to review results and discuss further management KAL BRENNAN MD Aug 06, 2024 16:07
--- NOTE | 2024-08-06 16:10 | DVHOP2 ---
Operative Report DATE OF OPERATION: 08/06/24 PROCEDURE: Upper Endoscopy with biopsy. PREOPERATIVE INDICATION: The patient is a 69 -year-old female undergoing endoscopy for left-sided abdominal pain and mild GERD POSTOPERATIVE DIAGNOSES: 1. 0.5-1 cm sliding-type hiatal hernia with no significant erosive esophagitis 2. Patient had mild gastritis with some superficial gastric erosions otherwise normal examination up to the 2nd and 3rd part of the duodenum PROCEDURE PERFORMED BY: Kal Brennan GI NURSE: Kera SCOPE: Olympus videoendoscope. ASA CLASS: 3. PREOPERATIVE MEDICATIONS: Dr. Libra Pena PROCEDURE IN DETAIL: After obtaining an informed consent, the patient was placed on left lateral decubitus position. The patient was then sedated with the above medications. A bite block was placed between her teeth. The endoscope was then passed through the oropharynx, into the esophagus, and through the stomach and pylorus up to the second and third part of the duodenum. The endoscope was then withdrawn. The 2nd and 3rd part of the duodenum and the duodenal bulb were normal. Duodenal biopsies were obtained. The pre-pyloric area antrum and body showed mild gastritis with a few superficial erosions. Gastric biopsies were obtained On retroflexion the fundus cardia and angularis were normal. The endoscope was then straightened withdrawn into the distal esophagus Patient had a 1.5-1 cm sliding-type hiatal hernia with no significant erosive esophagitis The remaining distal and proximal esophagus and oropharynx were unremarkable The patient tolerated the procedure well without difficulty. COMPLICATIONS : None SPECIMENS: Duodenal biopsies Gastric biopsies DISPOSITION: Stable D/C to home PLAN: 1. Await for biopsy result 2. Will place pt on Protonix 40 mg p.o. daily 3. Resume GI soft diet advance as tolerated 4. DC aspirin NSAIDs smoking alcohol 5. Outpatient follow up with me in 4-6 weeks to review results and discuss further management KAL BRENNAN MD Aug 06, 2024 16:10
== END | disposition home or self-care (01) ==
LOC: GI 12:48
PROVIDERS: ATTEND Internal Medicine Gastroenterology
DX: K59.00 Constipation, unspecified (principal); R10.9 Unspecified abdominal pain; K57.30 Diverticulosis of large intestine without perforation or abscess without bleeding; K51.40 Inflammatory polyps of colon without complications; K21.9 Gastro-esophageal reflux disease without esophagitis; K25.9 Gastric ulcer, unspecified as acute or chronic, without hemorrhage or perforation; K29.50 Unspecified chronic gastritis without bleeding; K44.9 Diaphragmatic hernia without obstruction or gangrene; K64.8 Other hemorrhoids; F17.200 Nicotine dependence, unspecified, uncomplicated; I10 Essential (primary) hypertension; Z90.710 Acquired absence of both cervix and uterus; Z88.0 Allergy status to penicillin; Z88.6 Allergy status to analgesic agent; Z88.8 Allergy status to other drugs, medicaments and biological substances; Z98.890 Other specified postprocedural states
CPT/HCPCS: 36415; 43239; 45385; 80053; 81001; 85025; 85610; 85730; 88305; 88312; 88342; J2704; J3010; J7030

== ENCOUNTER → 2024-08-21 | Outpatient (CLI) | payer OTHER ==
[~2024-08-21] MED LIST changes: -PROPOFOL 10 MG/ML 20 ML IV ONE; -fentaNYL CITRATE 100 MCG/2 ML VL ONE
[2024-08-21 14:01] LABS: Urine Bacteria FEW /hpf (None Seen); Urine Blood Negative /uL (Negative); Urine Clarity Clear (Clear); Urine Color Light-Yellow (Yellow); Urine Protein, UAD Negative (Negative); Urine Specific Gravity 1.028 (1.001-1.035); Urine Squamous Epithelial Cell FEW /hpf (<5); Urine Urobilinogen Normal (Negative); Urine WBC 5 /HPF (0-5); Urine pH 6.5 (5.0-9.0)
== END | disposition home or self-care (01) ==
LOC: LAB 13:34
PROVIDERS: ATTEND Internal Medicine Gastroenterology
DX: N39.0 Urinary tract infection, site not specified (principal)
CPT/HCPCS: 81001; 87086

== ENCOUNTER 2024-11-06 19:38 | Emergency (ER) | payer OTHER ==
[~2024-11-06] VITALS: Ht 157.5 cm; Wt 70.4 kg
--- NOTE | 2024-11-06 21:44 | ED.PDOC ---
History of Present Illness HPI Comments 6-year-old female with a chronic back pain presents from pain management with worsening 10/10 sciatica pain after receiving an epidural shot. Patient called her pain management doctor recommended she come in for a pain shot and then follow up in his clinic. Patient denies any other symptoms Chief Complaint: Back Pain Time Seen by MD: 21:01 Primary Care Provider: IMER Allergies: Coded Allergies: Ketorolac Tromethamine (Verified Allergy, Severe, 11/06/24) Codeine (Verified Allergy, Unknown, 06/03/18) Metoclopramide (Verified Allergy, Unknown, 06/03/18) Penicillins (Verified Allergy, Unknown, 06/03/18) Prochlorperazine (Verified Allergy, Unknown, 06/03/18) Home Meds Reported Medications Gabapentin (Neurontin) 400 Mg Cap, 400 MG PO, CAP 08/01/24 Dapagliflozin Propanediol (Farxiga) 10 Mg Tab, 10 MG PO DAILY, TAB 08/01/24 Belimumab (Benlysta) 200 Mg/Ml Inj, 200 MG SC QWEEKLY, INJ 08/01/24 Methotrexate (Methotrexate) 2.5 Mg Tab, 2.5 MG PO, TAB 08/01/24 Hydroxychloroquine Sulfate (PLAQUENIL) 200 Mg Tab, 200 MG OR, TAB 08/01/24 Phenytoin Sodium (DILANTIN CAPSULE) 100 Mg Cp, 100 MG PO BID, CAP 03/27/21 Lisinopril (Lisinopril) 2.5 Mg Tab, 1 TAB PO BID, #30 TAB 5 Refills 06/17/20 Mode of Arrival: Wheelchair Past Medical History PAST MEDICAL HISTORY: COPD, CVA, DM, Gout, High Lipids, HTN, Seizures, TIA Surgical History: Appendectomy, Cholecystectomy, Hysterectomy, Tonsillectomy FRONT DESK LEAD History: No Pertinent FRONT DESK LEAD History Family History Family History: Reviewed,noncontributory to illness Social History Smoker: Non-Smoker Alcohol: Denies ETOH Use Drugs: Denies Drug Use Lives In: Home Physical Exam General Appearance: No Apparent Distress, Normal HEENT: Pharynx Normal Neck: Normal Inspection Respiratory: No Respiratory Distress Cardiovascular: No Edema Breast Exam: Deferred Gastrointestinal: Non Tender Genitalia: Deferred Pelvic: Deferred Rectal: Deferred Extremities: No pedal edema Neurologic: No Motor Deficits Cerebellar Function: NOT DONE Reflexes: NOT DONE Skin: Normal Color Lymphatic: NOT DONE Was a procedure done? Was a procedure done?: No Differential Dx Considerations may include: Acute exacerbation sciatica pain X-Ray, Labs, Meds, VS Vital Signs Date Time Temp Pulse Resp B/P (MAP) Pulse Ox O2 Delivery O2 Flow Rate FiO2 11/06/24 19:45 97.8 84 16 117/77 (90) 95 97.8 Time of 1ST Reevaluation: 21:43 Reevaluation 1ST: Improved Patient Education/Counseling: Diagnosis, Treatment Family Education/Counseling: No Family Present Departure 1 Departure Time of Disposition: 21:43 (Patient with a acute exacerbation of sciatica pain. We will discharge patient home with outpatient follow up) Impression: Primary Impression: Acute exacerbation of chronic low back pain Disposition: 01 HOME / SELF CARE / HOMELESS Condition: Stable Additional Instructions: It is important to follow up with the regular doctors. Discharged With: Self Critical Care Note Critical Care Time?: No Stability Stability form required: No Heart Score Heart Score: Heart Score Response (Comments) Value History N/A 0 EKG N/A 0 Age N/A 0 Risk Factors N/A 0 Troponin N/A 0 Total 0 MING CHENG MD November 06, 2024 21:44
[2024-11-06] MEDS: HYDROcodone-ACET 10/325MG TAB PO ONE (23:20)
[2024-11-06] MEDS: ONDANSETRON ODT 4 MG TAB PO ONE (23:23)
[2024-11-06 23:25] VITALS: TEMP 98.7; O2SAT 97
[2024-11-06 23:33] VITALS: BP 131/61; PULSE 66; RESP 15
[2024-11-06] MEDS: MORPHINE SULFATE 4 MG/ML SYR/VIAL IM ONE (23:33)
== END 2024-11-06 23:40 | disposition home or self-care (01) ==
LOC: ER 19:38
DX: G89.29 Other chronic pain (principal); M54.50 Low back pain, unspecified; J44.9 Chronic obstructive pulmonary disease, unspecified; I10 Essential (primary) hypertension; E11.9 Type 2 diabetes mellitus without complications; E78.5 Hyperlipidemia, unspecified; Z90.49 Acquired absence of other specified parts of digestive tract; Z90.710 Acquired absence of both cervix and uterus; Z90.89 Acquired absence of other organs; Z86.73 Personal history of transient ischemic attack (TIA), and cerebral infarction without residual deficits; Z79.84 Long term (current) use of oral hypoglycemic drugs; Z79.899 Other long term (current) drug therapy; Z88.0 Allergy status to penicillin; Z88.5 Allergy status to narcotic agent; Z88.8 Allergy status to other drugs, medicaments and biological substances
CPT/HCPCS: 96372; 99283; J2270; Q0162

== ENCOUNTER 2024-11-21 11:41 | Outpatient (CLI) | payer OTHER ==
[2024-11-21 12:06] LABS: Basophils # (auto) 0.1 10 ^3/uL (0-0.2); Eosinophils # (auto) 0 10 ^3/uL (0-0.8); Eosinophils % (auto) 0.6 % (0.0-7.0); Hematocrit 51.4 % (36.0-46.0); Lymphocytes # (auto) 1.5 10 ^3/uL (0.4-5.4); Lymphocytes % (auto) 21.4 % (10.0-50.0); Mean Corpuscular Hemoglobin 29.2 pg (28.0-32.0); Mean Corpuscular Hgb Conc. 33.1 g/dL (32.0-36.0); Mean Corpuscular Volume 88.2 fL (80.0-100.0); Monocytes # (auto) 0.7 10 ^3/uL (0-1.3); Monocytes % (auto) 9.2 % (0.0-12.0); Neutrophils # (auto) 4.9 10 ^3/uL (1.6-8.6); Neutrophils % (auto) 67.8 % (37.0-80.0); Nucleated Red Blood Cells % 0.2 %; Platelet Count (auto) 223 10^3/uL (140-450); Red Blood Cells 5.83 10^6/uL (4.0-5.20); Red Cell Distribution Width 14.3 % (11.8-14.3); White Blood Cell 7.2 10^3/uL (4.4-10.8)
[2024-11-21 12:37] LABS: Creatinine, Urine 37.63 mg/dL (30.0-125.0)
[2024-11-21 12:39] LABS: Alanine Aminotransferase 17 U/L (7-40); Alkaline Phosphatase 104 U/L (46-116); Anion Gap 7 (5-15); Aspartate Aminotransferase 16 U/L (13-40); Blood Urea Nitrogen 13 mg/dL (9-23); Carbon Dioxide 24 mmol/L (20-31); Potassium 4.2 mmol/L (3.5-5.1); Sodium 142 mmol/L (136-145); Total Protein 7.3 g/dL (5.7-8.2)
[2024-11-21 12:40] LABS: Bilirubin, Total 0.3 mg/dL (0.2-1.0)
[2024-11-21 12:44] LABS: Chloride 111 mmol/L (98-107); Glucose 135 mg/dL (74-106)
== END 2024-11-21 17:00 | disposition home or self-care (01) ==
LOC: LAB 11:41
PROVIDERS: ATTEND Internal Medicine
DX: E11.9 Type 2 diabetes mellitus without complications (principal); Z12.11 Encounter for screening for malignant neoplasm of colon
CPT/HCPCS: 36415; 80053; 82043; 82570; 83036; 84443; 85025

== ENCOUNTER 2024-11-25 16:11 | Outpatient (CLI) | payer OTHER | END 2024-11-25 17:00 | disposition home or self-care (01) | LOC: LAB 16:11 | PROVIDERS: ATTEND Internal Medicine | DX: E11.9 Type 2 diabetes mellitus without complications (principal); Z12.11 Encounter for screening for malignant neoplasm of colon | CPT/HCPCS: 82270 ==

== ENCOUNTER 2024-12-02 13:16 | Emergency (ER) | payer OTHER ==
[~2024-12-02] VITALS: Ht 157.5 cm; Wt 67.4 kg
[2024-12-02 13:30] VITALS: TEMP 97.4
[2024-12-02] MEDS: MORPHINE SULFATE 4 MG/ML SYR/VIAL IM ONE (13:30)
--- NOTE | 2024-12-02 13:34 | ED.PDOC ---
History of Present Illness HPI Comments 69-year-old female presents with a chief complaint of back pain and request for pain management. Patient reports that she has an appointment today to have an MRI done of her back. Patient is in pain management for her back and has a back doctor. Patient is requesting a pain shot to ease her pain. Time Seen by MD: 13:27 Primary Care Provider: IMER Griffith Notes: Medications, Allergies Allergies: Coded Allergies: Ketorolac Tromethamine (Verified Allergy, Severe, 11/06/24) Codeine (Verified Allergy, Unknown, 06/03/18) Metoclopramide (Verified Allergy, Unknown, 06/03/18) Penicillins (Verified Allergy, Unknown, 06/03/18) Prochlorperazine (Verified Allergy, Unknown, 06/03/18) Home Meds Reported Medications Gabapentin (Neurontin) 400 Mg Cap, 400 MG PO, CAP 08/01/24 Dapagliflozin Propanediol (Farxiga) 10 Mg Tab, 10 MG PO DAILY, TAB 08/01/24 Belimumab (Benlysta) 200 Mg/Ml Inj, 200 MG SC QWEEKLY, INJ 08/01/24 Methotrexate (Methotrexate) 2.5 Mg Tab, 2.5 MG PO, TAB 08/01/24 Hydroxychloroquine Sulfate (PLAQUENIL) 200 Mg Tab, 200 MG OR, TAB 08/01/24 Phenytoin Sodium (DILANTIN CAPSULE) 100 Mg Cp, 100 MG PO BID, CAP 03/27/21 Lisinopril (Lisinopril) 2.5 Mg Tab, 1 TAB PO BID, #30 TAB 5 Refills 06/17/20 Information Source: Patient Mode of Arrival: Ambulatory Severity: Moderate Timing: Months Duration: Intermittent Prehospital treatment: None Past Medical History PAST MEDICAL HISTORY: COPD, CVA, DM, Gout, High Lipids, HTN, Seizures, TIA Surgical History: Appendectomy, Cholecystectomy, Hysterectomy, Tonsillectomy BANDOLEER PACKER History: No Pertinent BANDOLEER PACKER History Family History Family History: Reviewed,noncontributory to illness Social History Smoker: Non-Smoker Alcohol: Denies ETOH Use Drugs: Denies Drug Use Lives In: Home Constitutional: denies: chills, diaphoresis, fatigue, fever, malaise, sweats, weakness, others EENTM: denies: blurred vision, double vision, ear bleeding, ear discharge, ear drainage, ear pain, ear ringing, eye pain, eye redness, hearing loss, mouth pain, mouth swelling, nasal discharge, nose bleeding, nose congestion, nose pain, photophobia, tearing, throat pain, throat swelling, voice changes, others Respiratory: denies: cough, hemoptysis, orthopnea, SOB at rest, shortness of breath, SOB with excertion, stridor, wheezing, others Cardiovascular: denies: chest pain, dizzy spells, diaphoresis, Dyspnea on exertion, edema, irregular heart beat, left arm pain, lightheadedness, palpitations, PND, syncope, others Gastrointestinal: denies: abdomen distended, abdominal pain, blood streaked bowels, constipated, diarrhea, dysphagia, difficulty swallowing, hematemesis, melena, nausea, poor appetite, poor fluid intake, rectal bleeding, rectal pain, vomiting, others Genitourinary: denies: abnormal vagina bleeding, burning, dyspareunia, dysuria, flank pain, frequency, hematuria, incontinence, pain, , vagina discharge, urgency, others Neurological: denies: dizziness, fainting, headache, left sided numbness, left sided weakness, numbness, paresthesia, pre-existing deficit, right sided numbness, right sided weakness, seizure, speech problems, tingling, tremors, weakness, others Musculoskeletal: reports: back pain; denies: gout, joint pain, joint swelling, muscle pain, muscle stiffness, neck pain, others Integumetry: denies: bruises, change in color, change in hair/nails, dryness, laceration, lesions, lumps, rash, wounds, others Allergic/Immunocompromised: denies: Difficulty Healing, Frequent Infections, Hives, Itching, others Hematologic/Lymphatic: denies: anemia, blood clots, easy bleeding, easy bruising, swollen glands, others Endocrine: denies: excessive hunger, excessive sweating, excessive thirst, excessive urination, flushing, intolerance to cold, intolerance to heat, unexplained weight gain, unexplained weight loss, others Psychiatric: denies: anxiety, bipolar disorder, depression, hopeless, panic disorder, schizophrenia, sleepless, suicidal, others All Other Systems: Reviewed and Negative Physical Exam General Appearance: No Apparent Distress, Normal HEENT: Normal ENT Inspection, Pharynx Normal, TMs Normal Neck: Full Range of Motion, Non-Tender, Normal, Normal Inspection Respiratory: Chest Non-Tender, Lungs Clear, No Accessory Muscle Use, No Respiratory Distress, Normal Breath Sounds Cardiovascular: No Edema, No JVD, No Murmur, No Gallop, Normal Peripheral Pulses, Regular Rate/Rhythm Breast Exam: Deferred Gastrointestinal: No Organomegaly, Non Tender, No Pulsatile Mass, Normal Bowel Sounds, Soft Genitalia: Deferred Pelvic: Deferred Rectal: Deferred Extremities: No calf tenderness, Normal capillary refill, Normal inspection, Normal range of motion, Non-tender, No pedal edema Musculoskeletal : Apperance: Normal Neurologic: Alert, fiber optic technician II-XII nml as Tested, No Motor Deficits, Normal Affect, Normal Mood, No Sensory Deficits Cerebellar Function: Normal Reflexes: Normal Skin: Dry, Normal Color, Warm Lymphatic: No Adenopathy Was a procedure done? Was a procedure done?: No Differential Dx Considerations may include: Musculoskeletal strain X-Ray, Labs, Meds, VS Vital Signs Date Time Temp Pulse Resp B/P (MAP) Pulse Ox O2 Delivery O2 Flow Rate FiO2 12/02/24 13:30 97.4 64 17 118/71 (87) 95 97.4 Time of 1ST Reevaluation: 13:57 Reevaluation 1ST: Unchanged Patient Education/Counseling: Diagnosis, Treatment, Need For Follow Up Family Education/Counseling: No Family Present Departure 1 Departure Time of Disposition: 15:26 (Patient well known to the ER is feeling better. We will discharge patient home) Impression: Primary Impression: Lumbar strain Qualified Codes: S39.012A - Strain of muscle, fascia and tendon of lower back, initial encounter Disposition: HOME / SELF CARE / HOMELESS Condition: Stable Additional Instructions: Please go to your regular appointments. Critical Care Note Critical Care Time?: No Stability Stability form required: No Heart Score Heart Score: Heart Score Response (Comments) Value History N/A 0 EKG N/A 0 Age N/A 0 Risk Factors N/A 0 Troponin N/A 0 Total 0 I personally scribed for MING CHENG MD ([email or web address]) on 12/02/24 at 13:34. Electronically submitted by Dileep Abad ([email or web address]). MING CHENG MD Dec 02, 2024 13:34
[2024-12-02 17:19] VITALS: BP 133/92; PULSE 96; RESP 18; O2SAT 99
== END 2024-12-02 17:21 | disposition home or self-care (01) ==
LOC: ER 13:16
DX: S39.012A Strain of muscle, fascia and tendon of lower back, initial encounter (principal); J44.9 Chronic obstructive pulmonary disease, unspecified; I10 Essential (primary) hypertension; E11.9 Type 2 diabetes mellitus without complications; Z86.73 Personal history of transient ischemic attack (TIA), and cerebral infarction without residual deficits; Z79.899 Other long term (current) drug therapy; Z90.710 Acquired absence of both cervix and uterus; Z90.49 Acquired absence of other specified parts of digestive tract; Z88.0 Allergy status to penicillin; Z88.5 Allergy status to narcotic agent; X58.XXXA Exposure to other specified factors, initial encounter; Y93.89 Activity, other specified; Y92.89 Other specified places as the place of occurrence of the external cause; Y99.8 Other external cause status
CPT/HCPCS: 96372; 99283; J2270

== ENCOUNTER 2024-12-17 15:06 | Emergency (ER) | payer OTHER ==
[~2024-12-17] VITALS: Ht 157.5 cm; Wt 68.5 kg
--- NOTE | 2024-12-17 16:24 | ED.PDOC ---
HPI Comments Patient is a 69-year-old female with a past medical history of lupus, stroke, hypertension, type 2 diabetes mellitus, seizures, ventral hernia presented to the ED with a chief complaint of chest pain and cough for the last 2 weeks. Patient reported that about 2 weeks ago she started to have cough associated with phlegm which was initially greenish and then turned yellow, associated with the episodes of chills. Patient also reported simultaneous chest pain which was dull/tightness in character, occurs intermittently, radiating to the left neck and the left shoulder, gets worse on coughing and taking deep breath. Patient reportedly contacted her PCP who advised her to visit the ER for further evaluation. She also reported of increased urinary frequency, dark-colored urine but denied any dysuria. Reported of abdominal pain in the left upper quadrant and in the left flank area, associated nausea and few episodes of vomiting, denied any blood in the vomitus. She reports of constipation but had a bowel movement today in the morning. Chief Complaint: Shortness of Breath Time Seen by MD: 15:09 Primary Care Provider: Emeterio Reviewed Notes: Nurses Notes, Pharmacy Graduate Intern Notes, Medications, Allergies Allergies: Coded Allergies: Ketorolac Tromethamine (Verified Allergy, Severe, 11/06/24) Codeine (Verified Allergy, Unknown, 06/03/18) Metoclopramide (Verified Allergy, Unknown, 06/03/18) Penicillins (Verified Allergy, Unknown, 06/03/18) Prochlorperazine (Verified Allergy, Unknown, 06/03/18) Home Meds Reported Medications Gabapentin (Neurontin) 400 Mg Cap, 400 MG PO, CAP 08/01/24 Dapagliflozin Propanediol (Farxiga) 10 Mg Tab, 10 MG PO DAILY, TAB 08/01/24 Belimumab (Benlysta) 200 Mg/Ml Inj, 200 MG SC QWEEKLY, INJ 08/01/24 Methotrexate (Methotrexate) 2.5 Mg Tab, 2.5 MG PO, TAB 08/01/24 Hydroxychloroquine Sulfate (PLAQUENIL) 200 Mg Tab, 200 MG OR, TAB 08/01/24 Phenytoin Sodium (DILANTIN CAPSULE) 100 Mg Cp, 100 MG PO BID, CAP 03/27/21 Lisinopril (Lisinopril) 2.5 Mg Tab, 1 TAB PO BID, #30 TAB 5 Refills 06/17/20 Information Source: Patient Mode of Arrival: Ambulatory Severity: Mild, Moderate Timing: Weeks Duration: Intermittent Prehospital treatment: None Location: Chest (R), Chest (L), Substernal Radiation: Neck, Shoulder (L) Quality: Squeezing, Tightness Onset: At Rest Cardiac Risk Factors: Family History, HTN, Diabetes PE Risk Factors: None History of: Similar pain in past Associated Signs and Symptoms: Abdominal Pain Past Medical History PAST MEDICAL HISTORY: COPD, CVA, DM, Gout, High Lipids, HTN, Seizures, TIA Past Medical History (Other): Lupus Surgical History: Appendectomy, Cholecystectomy, Hysterectomy, Tonsillectomy EMPLOYEE PLACEMENT SPECIALIST History: No Pertinent EMPLOYEE PLACEMENT SPECIALIST History Family History Family History: Reviewed,noncontributory to illness Social History Smoker: Non-Smoker Alcohol: Denies ETOH Use Drugs: Denies Drug Use Lives In: Home Constitutional: reports: fatigue, weakness EENTM: denies: blurred vision, double vision, ear bleeding, ear discharge, ear drainage, ear pain, ear ringing, eye pain, eye redness, hearing loss, mouth pain, mouth swelling, nasal discharge, nose bleeding, nose congestion, nose pain, photophobia, tearing, throat pain, throat swelling, voice changes, others Respiratory: reports: cough Cardiovascular: reports: chest pain, Dyspnea on exertion, irregular heart beat Gastrointestinal: reports: abdominal pain (Left upper quadrant, left flank), constipated, nausea Genitourinary: reports: frequency Neurological: reports: dizziness Musculoskeletal: denies: back pain, gout, joint pain, joint swelling, muscle pain, muscle stiffness, neck pain, others Integumetry: denies: bruises, change in color, change in hair/nails, dryness, laceration, lesions, lumps, rash, wounds, others Allergic/Immunocompromised: denies: Difficulty Healing, Frequent Infections, Hives, Itching, others Hematologic/Lymphatic: denies: anemia, blood clots, easy bleeding, easy br uising, swollen glands, others Endocrine: denies: excessive hunger, excessive sweating, excessive thirst, excessive urination, flushing, intolerance to cold, intolerance to heat, unexplained weight gain, unexplained weight loss, others Psychiatric: denies: anxiety, bipolar disorder, depression, hopeless, panic disorder, schizophrenia, sleepless, suicidal, others Physical Exam General Appearance: Mild Distress HEENT: Normal ENT Inspection, Pharynx Normal, TMs Normal Neck: Full Range of Motion, Non-Tender, Normal, Normal Inspection Respiratory: Chest Non-Tender, Lungs Clear, No Accessory Muscle Use, No Respiratory Distress, Normal Breath Sounds Cardiovascular: No Edema, No JVD, No Murmur, No Gallop, Normal Peripheral Pulse s, Regular Rate/Rhythm Breast Exam: Deferred Gastrointestinal: LUQ, No Organomegaly, Normal Bowel Sounds, Tenderness Genitalia: Deferred Pelvic: Deferred Rectal: Deferred Extremities: No calf tenderness, Normal capillary refill, Normal inspection, Normal range of motion, Non-tender, No pedal edema Neurologic: Alert, statistician applied II-XII nml as Tested, No Motor Deficits, Normal Affect, Normal Mood, No Sensory Deficits Cerebellar Function: Normal Reflexes: Normal Skin: Dry, Normal Color, Warm Peripheral Pulses: 2+ carotid (R), 2+ carotid (L), 2+ femoral (R), 2+ femoral (L), 2+ dorsalis pedis (R), 2+ dorsalis pedis (L), 2+ Radial (R), 2+ Radial (L) Lymphatic: No Adenopathy EKG EKG : Pulse Rate (adult): 87 [place]: Normal Cardiac Rhythm: PVC's Block: None Hypertrophy: None ST: Normal Was a procedure done? Was a procedure done?: No CP Differential Dx Differential Diagnosis: PVC's Differential Diagnosis: Angina, Costochondritis, Esophageal reflux/spasm, Gastritis, Pneumonia X-Ray, Labs, Meds, VS Vital Signs Date Time Temp Pulse Resp B/P (MAP) Pulse Ox O2 Delivery O2 Flow Rate FiO2 12/17/24 17:57 99.0 57 17 104/55 (71) 96 99.0 12/17/24 17:55 57 17 104/55 12/17/24 17:10 68 20 98 Room Air 12/17/24 17:10 97.8 68 20 117/50 (72) 98 97.8 12/17/24 17:10 87 12/17/24 17:08 68 20 117/50 12/17/24 15:35 99.1 80 18 114/73 (87) 94 99.1 Lab Test 12/17/24 18:22 12/17/24 17:37 12/17/24 16:34 Range/Units Urine Color Light-yellow Yellow Urine Clarity Clear Clear Urine pH 5.5 5.0-9.0 Urine Specific [place] 1.033 1.001-1.035 Urine Protein Negative Negative Urine Ketones Negative Negative Urine Blood Negative Negative /uL Urine Nitrite 2+ H Negative Urine Bilirubin Negative Negative Urine Urobilinogen Normal Negative mg/dL Urine Leukocyte Esterase Negative Negative /uL Urine RBC <1 0 - 4 /hpf Urine Microscopic WBC 11 H 0-5 /HPF Urine Squamous Epithelial Cells None seen <5 /hpf Urine Bacteria Few H None Seen /hpf Urine Glucose 4+ H Normal mg/dL Troponin I High Sensitivity 4 5 </=34 ng/L White Blood Count 8.7 4.4-10.8 10^3/uL Red Blood Count 5.32 H 4.0-5.20 10^6/uL Hemoglobin 15.9 12.2-16.2 g/dL Hematocrit 46.1 H 36.0-46.0 % Mean Corpuscular Volume 86.6 80.0-100.0 fL Mean Corpuscular Hemoglobin 29.8 28.0-32.0 pg Mean Corpuscular Hemoglobin Concent 34.5 32.0-36.0 g/dL Red Cell Distribution Width 14.1 11.8-14.3 % Platelet Count 207 140-450 10^3/uL Mean Platelet Volume 8.5 6.9-10.8 fL Neutrophils (%) (Auto) 74.8 37.0-80.0 % Lymphocytes (%) (Auto) 14.7 10.0-50.0 % Monocytes (%) (Auto) 9.4 0.0-12.0 % Eosinophils (%) (Auto) 0.5 0.0-7.0 % Basophils (%) (Auto) 0.6 0.0-2.0 % Neutrophils # (Auto) 6.5 1.6-8.6 10 ^3/uL Lymphocytes # (Auto) 1.3 0.4-5.4 10 ^3/uL Monocytes # (Auto) 0.8 0-1.3 10 ^3/uL Eosinophils # (Auto) 0 0-0.8 10 ^3/uL Basophils # (Auto) 0.1 0-0.2 10 ^3/uL Nucleated Red Blood Cells 0.1 % Sodium Level 142 136-145 mmol/L Potassium Level 4.2 3.5-5.1 mmol/L Chloride Level 107 98-107 mmol/L Carbon Dioxide Level 26 20-31 mmol/L Anion Gap 9 5-15 Blood Urea Nitrogen 15 9-23 mg/dL Creatinine 0.79 0.550-1.02 mg/dL Glomerular Filtration Rate Calc 80 >90 mL/min BUN/Creatinine Ratio 19.0 10.0-20.0 Serum Glucose 140 H 74-106 mg/dL Calcium Level 8.7 8.7-10.4 mg/dL Current Medications Medications (Trade) Dose Ordered Sig/[place] Route Start Time Stop Time Status Last Admin Ondansetron HCl (Zofran) 4 mg ONCE ONCE IV 12/17/24 16:15 12/17/24 16:16 DC 12/17/24 17:08 Morphine Sulfate 2 mg ONCE ONCE IV 12/17/24 16:15 12/17/24 16:39 DC 12/17/24 17:08 Patient came to the ER with a chief complaint of chest pain which was intermittent, across the whole chest, tightness with mild radiation was evaluated in the ED with an EKG which showed supraventricular bigemini without any ST or T-wave changes and serial troponin levels were within normal limits. On re-evaluation patient reported that the chest pain had improved. Patient also reported of cough with some expectoration and on lab investigations patient did not have any elevated white count, no fever tachycardia or tachypnea, no signs of respiratory distress was noted. Patient is being discharged in stable condition to home advised to follow up with the PCP within 1 week. Time of 1ST Reevaluation: 17:09 Reevaluation 1ST: Improved Time of 2ND Reevaluation: 19:23 Reevaluation 2ND: Improved Patient Education/Counseling: Diagnosis, Treatment Family Education/Counseling: Diagnosis, Treatment SEPSIS Sepsis Screen Date sepsis recognized/suspect: Dec 17, 2024 Time Sepsis recognized/suspect: 1523 Recent Procedure: No On Antibiotic Therapy: No Respiratory Rate >20: No Heart Rate >90: No Temp<36 C (96.8 F) or >38.3 C: No SBP <90 or MAP <65 mmHG: No New Acute Mental Status Change: No Is the patient on CPAP, BIPAP,: No Physician Orders Chest Portable (12/17/24 16:09) Heplock Iv (12/17/24 16:09) Electrocardigram (12/17/24 17:12) Electrocardigram (12/17/24 18:12) Rapid Influenza A&B (12/17/24 18:29) Covid19 Antigen Autumn (12/17/24 ) Vital Signs Date Time Temp Pulse Resp B/P (MAP) Pulse Ox O2 Delivery O2 Flow Rate FiO2 12/17/24 17:57 99.0 57 17 104/55 (71) 96 99.0 12/17/24 17:55 57 17 104/55 12/17/24 17:10 68 20 98 Room Air 12/17/24 17:10 97.8 68 20 117/50 (72) 98 97.8 12/17/24 17:10 87 12/17/24 17:08 68 20 117/50 12/17/24 15:35 99.1 80 18 114/73 (87) 94 99.1 Laboratory Tests Test 12/17/24 16:34 White Blood Count 8.7 10^3/uL (4.4-10.8) Medications Medications Dose Ordered Sig/[place] Route Start Time Stop Time Status Last Admin Dose Admin Morphine Sulfate 2 mg ONCE ONCE IV 12/17/24 16:15 12/17/24 16:39 DC 12/17/24 17:08 Ondansetron HCl 4 mg ONCE ONCE IV 12/17/24 16:15 12/17/24 16:16 DC 12/17/24 17:08 Departure 1 Departure Time of Disposition: 19:51 Impression: Primary Impression: Costochondritis Additional Impressions: Chest wall pain Pneumonitis Disposition: 01 HOME / SELF CARE / HOMELESS Condition: Stable Critical Care Note Critical Care Time?: No Stability Stability form required: No Heart Score Heart Score: Heart Score Response (Comments) Value History Moderate Suspicious 1 EKG Normal 0 Age >65 2 Risk Factors >3 or Hx ASHD 2 Troponin Normal limit 0 Total 5 CHELSY GUZMAN RESIDENT Dec 17, 2024 16:24
--- NOTE | 2024-12-17 16:40 | DVH ---
CHEST RADIOGRAPH Indication: cough Technique: Single frontal view of the chest was obtained Comparison: XY CHEST XRAY 1 VIEW on DOS: 12/14/23, XY CHEST PORTABLE on DOS: 03/24/23, CHEST PORTABLE o n DOS: 05/05/22 FINDINGS: Lines and Tubes: None Lungs: Limited evaluation of the medial lung apices due to overlying chin. Otherwise, Pleura: No effusion. No pneumothorax. Cardiomediastinal contours: Unremarkable Bones: No acute osseous abnormality. IMPRESSION: Limited evaluation of the lung apices. Otherwise, no acute cardiopulmonary disease.
[2024-12-17 16:47] LABS: Hematocrit 46.1 % (36.0-46.0); Hemoglobin 15.9 g/dL (12.2-16.2); Mean Corpuscular Hemoglobin 29.8 pg (28.0-32.0); Mean Corpuscular Volume 86.6 fL (80.0-100.0); Nucleated Red Blood Cells % 0.1 %
[2024-12-17 16:57] LABS: Potassium 4.2 mmol/L (3.5-5.1); Sodium 142 mmol/L (136-145)
[2024-12-17 16:58] LABS: Anion Gap 9 (5-15); Calcium 8.7 mg/dL (8.7-10.4); Carbon Dioxide 26 mmol/L (20-31)
[2024-12-17 17:01] LABS: Chloride 107 mmol/L (98-107)
[2024-12-17 17:03] LABS: BUN/Creatinine Ratio 19.0 (10.0-20.0); Blood Urea Nitrogen 15 mg/dL (9-23); Glucose 140 mg/dL (74-106)
[2024-12-17] MEDS: ONDANSETRON HCL 4 MG/2 ML VIAL IV ONE (17:08)
[2024-12-17] MEDS: MORPHINE SULFATE INJ 2 MG/ml SYRG IV ONE (17:08)
[2024-12-17 17:57] VITALS: BP 104/55; PULSE 57; RESP 17; TEMP 99; O2SAT 96
[2024-12-17 18:46] LABS: Urine Protein, UAD Negative (Negative)
--- NOTE | 2024-12-18 01:36 | ECG ---
[facility] Test Date: 2024-12-17 Test Time: 15:39:22 Pat Name: SHEA MICHELLE Department: ER Room: Gender: F Welding Machine Operator Resistance: ER : 1955 Requested By: CHELSY GUZMAN Order Number: [id number] Reading MD: Cornelius So Measurements Intervals [place] Rate: 88 P: 41 WV: 156 QRS: 24 QRSD: 94 T: 109 QT: 379 QTc: 459 Interpretive Statements Sinus rhythm Supraventricular bigeminy Abnormal T, consider ischemia, lateral leads Electronically Signed On 12-20-2024 9:49:19 PDT by Cornelius So Please click the below link to view image of tracing.
== END 2024-12-17 19:55 | disposition home or self-care (01) ==
LOC: ER 15:06
DX: M94.0 Chondrocostal junction syndrome [Tietze] (principal); R07.89 Other chest pain; J98.4 Other disorders of lung; E11.9 Type 2 diabetes mellitus without complications; Z79.899 Other long term (current) drug therapy; Z90.710 Acquired absence of both cervix and uterus; Z90.49 Acquired absence of other specified parts of digestive tract; Z88.0 Allergy status to penicillin; Z88.5 Allergy status to narcotic agent; Z86.73 Personal history of transient ischemic attack (TIA), and cerebral infarction without residual deficits
CPT/HCPCS: 36415; 71045; 80048; 81001; 84484; 85025; 93005; 96374; 96375; 99285; J2270; J2405

== ENCOUNTER 2024-12-25 10:03 | Emergency (ER) | payer OTHER ==
[~2024-12-25] VITALS: Ht 157.5 cm; Wt 67.0 kg
--- NOTE | 2024-12-25 11:11 | ED.PDOC ---
Musculoskeletal HPI Comments This is a 69 year old female presenting to the ED with chief complaint of left calf pain. Patient reports that while at the [employer] on 12/19, someone accidentally broke glass and a shard hit her leg, causing her to be sent to [place] for treatment. Patient relays that she is unsure if all the glass was taken out of her leg, however, she has since then been experiencing pain, swelling, and discoloration to her left leg. Patient states she saw her PCP today and was advised to come into the ED for an US of her leg to rule out DVT. Patient denies any numbness, weakness, tingling, or further injury. Chief Complaint: Lower Extremity Time Seen by MD: 11:07 Primary Care Provider: Emteerio Reviewed Notes: Nurses Notes, Medications, Allergies Allergies: Coded Allergies: Ketorolac Tromethamine (Verified Allergy, Severe, 11/06/24) Codeine (Verified Allergy, Unknown, 06/03/18) Metoclopramide (Verified Allergy, Unknown, 06/03/18) Penicillins (Verified Allergy, Unknown, 06/03/18) Prochlorperazine (Verified Allergy, Unknown, 06/03/18) Home Meds Active Scripts Naproxen (Naproxen) 375 Mg Tab, 500 MG PO BID for 10 Days, #20 TAB Prov:MARIAM MAGANA MD 12/25/24 Cefdinir (Cefdinir) 300 Mg Cap, 1 CAP PO BID for 7 Days, #14 CAP Prov:MARIAM MAGANA MD 12/25/24 Reported Medications Gabapentin (Neurontin) 400 Mg Cap, 400 MG PO, CAP 08/01/24 Dapagliflozin Propanediol (Farxiga) 10 Mg Tab, 10 MG PO DAILY, TAB 08/01/24 Belimumab (Benlysta) 200 Mg/Ml Inj, 200 MG SC QWEEKLY, INJ 08/01/24 Methotrexate (Methotrexate) 2.5 Mg Tab, 2.5 MG PO, TAB 08/01/24 Hydroxychloroquine Sulfate (PLAQUENIL) 200 Mg Tab, 200 MG OR, TAB 08/01/24 Phenytoin Sodium (DILANTIN CAPSULE) 100 Mg Cp, 100 MG PO BID, CAP 03/27/21 Lisinopril (Lisinopril) 2.5 Mg Tab, 1 TAB PO BID, #30 TAB 5 Refills 12/30/20 Information Source: Patient Mode of Arrival: Ambulatory Location: Left Extremity Location: Calf Timing: Days Prehospital treatment: None Severity: Moderate Able to Move Extremity: Yes Bear Weight: Limited Pain: Moderate Mechanism: Glass Cut Circumstances: Spontaneous Onset of Symptoms: After Trauma Symptoms: Swelling, Pain DVT Risk Factors: NONE Last Tetanus: Unknown Past Medical History PAST MEDICAL HISTORY: COPD, CVA, DM, Gout, High Lipids, HTN, Seizures, TIA Surgical History: Appendectomy, Cholecystectomy, Hysterectomy, Tonsillectomy PARACHUTE PANEL JOINER History: No Pertinent PARACHUTE PANEL JOINER History Family History Family History: Reviewed,noncontributory to illness Social History Smoker: Non-Smoker Alcohol: Denies ETOH Use Drugs: Denies Drug Use Lives In: Home Constitutional: denies: chills, diaphoresis, fatigue, fever, malaise, sweats, weakness, others EENTM: denies: blurred vision, double vision, ear bleeding, ear discharge, ear drainage, ear pain, ear ringing, eye pain, eye redness, hearing loss, mouth pain, mouth swelling, nasal discharge, nose bleeding, nose congestion, nose pain, photophobia, tearing, throat pain, throat swelling, voice changes, others Respiratory: denies: cough, hemoptysis, orthopnea, SOB at rest, shortness of breath, SOB with excertion, stridor, wheezing, others Cardiovascular: denies: chest pain, dizzy spells, diaphoresis, Dyspnea on exertion, edema, irregular heart beat, left arm pain, lightheadedness, palpitations, PND, syncope, others Gastrointestinal: denies: abdomen distended, abdominal pain, blood streaked bowels, constipated, diarrhea, dysphagia, difficulty swallowing, hematemesis, melena, nausea, poor appetite, poor fluid intake, rectal bleeding, rectal pain, vomiting, others Genitourinary: denies: abnormal vagina bleeding, burning, dyspareunia, dysuria, flank pain, frequency, hematuria, incontinence, pain, , vagina discharge, urgency, others Neurological: denies: dizziness, fainting, headache, left sided numbness, left sided weakness, numbness, paresthesia, pre-existing deficit, right sided numbness, right sided weakness, seizure, speech problems, tingling, tremors, weakness, others Musculoskeletal: reports: others (Left calf pain); denies: back pain, gout, joint pain, joint swelling, muscle pain, muscle stiffness, neck pain Integumetry: denies: bruises, change in color, change in hair/nails, dryness, laceration, lesions, lumps, rash, wounds, others Allergic/Immunocompromised: denies: Difficulty Healing, Frequent Infections, Hives, Itching, others Hematologic/Lymphatic: denies: anemia, blood clots, easy bleeding, easy bruising, swollen glands, others Endocrine: denies: excessive hunger, excessive sweating, excessive thirst, excessive urination, flushing, intolerance to cold, intolerance to heat, unexplained weight gain, unexplained weight loss, others Psychiatric: denies: anxiety, bipolar disorder, depression, hopeless, panic disorder, schizophrenia, sleepless, suicidal, others All Other Systems: Reviewed and Negative Physical Exam General Appearance: No Apparent Distress, Normal HEENT: Normal ENT Inspection, PERRL/EOMI Neck: Full Range of Motion, Non-Tender, Normal, Normal Inspection Respiratory: Chest Non-Tender, Lungs Clear, No Accessory Muscle Use, No Respiratory Distress, Normal Breath Sounds Cardiovascular: No Edema, No JVD, No Murmur, No Gallop, Normal Peripheral Pulses, Regular Rate/Rhythm Breast Exam: Deferred Gastrointestinal: No Organomegaly, Non Tender, No Pulsatile Mass, Normal Bowel Sounds, Soft Genitalia: Deferred Pelvic: Deferred Rectal: Deferred Extremities: Decreased range of motion, Inflammation, Normal capillary refill, Normal inspection, Normal range of motion, No pedal edema, Swelling, Tender, Other (Left leg at the wound site) Neurologic: Alert, differential specialist II-XII nml as Tested, No Motor Deficits, Normal Affect, Normal Mood, No Sensory Deficits Cerebellar Function: Normal Reflexes: Normal Skin: Bruises, Dry, Normal Color, Warm, Wounds, Other (Wound from the glass is mildly red and inflamed x-ray shows negative for foreign body an ultrasound shows negative for DVT) Peripheral Pulses: 1+ carotid (R), 1+ carotid (L) Lymphatic: No Adenopathy Was a procedure done? Was a procedure done?: No Differential Diagnosis EXT Differential Diagnosis: Cellulitis, Deep Vein Thrombosis X-Ray, Labs, Meds, VS Vital Signs Date Time Temp Pulse Resp B/P (MAP) Pulse Ox O2 Delivery O2 Flow Rate FiO2 12/25/24 16:34 89 19 96 Room Air* 0 21 12/25/24 16:30 98.0 78 20 122/64 (83) 98 98.0 12/25/24 14:59 79 20 97 Room Air 12/25/24 14:59 98.8 79 20 89/50 (63) 97 98.8 12/25/24 10:14 98.6 83 17 116/77 (90) 98 98.6 Current Medications Medications (Trade) Dose Ordered Sig/[place] Route Start Time Stop Time Status Last Admin Acetaminophen/ Hydrocodone Bitart ([place] 5/325MG Tab) 1 tab ONCE ONCE PO 12/25/24 16:30 12/25/24 16:31 DC 12/25/24 16:33 Lt DVT US: Findings: The common femoral vein demonstrates appropriate compressibility and waveform va riability. There is compressibility/patency of the great saphenous vein at the proximal thigh. The femoral vein demonstrates appropriate compressibility and waveform variability. The deep femoral vein demonstrates appropriate compressibility and waveform variability. The popliteal vein demonstrates appropriate compressibility and waveform variability. There is normal compressibility at the tibioperoneal trunk. Impression: No left femoropopliteal venous thrombosis. X-Ray, Labs, Meds, VS Comment Course in the emergency department eventful patient came in because of inflammation around the cut from glass The ultrasound does not show any DVT X-ray does not show any foreign body Patient will be discharged home to follow up with her PCP She will be discharged with antibiotic and pain medication Images Reviewed?: Images reviewed and evaluated by me Time of 1ST Reevaluation: 12:06 Reevaluation 1ST: Unchanged Patient Education/Counseling: Diagnosis, Treatment, Prognosis, Need For Follow Up Family Education/Counseling: Diagnosis, Treatment, Prognosis, Need For Follow Up, No Family Present Departure 1 Departure Time of Disposition: 14:34 Impression: Primary Impression: Wound infection Ruled Out: DVT (deep venous thrombosis), Foreign body (FB) in soft tissue Disposition: 01 HOME / SELF CARE / HOMELESS Condition: Fair Additional Instructions: Keep the wound clean and dry apply Neosporin ointment e-Prescriptions Naproxen (Naproxen) 375 Mg Tab 500 MG PO BID for 10 Days, #20 TAB Prov: MARIAM MAGANA MD 12/25/24 Cefdinir (Cefdinir) 300 Mg Cap 1 CAP PO BID for 7 Days, #14 CAP Prov: MARIAM MAGANA MD 12/25/24 Discharged With: Self Critical Care Note Critical Care Time?: No Stability Stability form required: No Heart Score Heart Score: Heart Score Response (Comments) Value History N/A 0 EKG N/A 0 Age >65 2 Risk Factors >3 or Hx ASHD 2 Troponin N/A 0 Total 4 I personally scribed for MARIAM MAGANA MD ([email or web address]) on 12/25/24 at 11:11. Electronically submitted by Akash Patel ([email or web address]). I personally scribed for MARIAM MAGANA MD ([email or web address]) on 12/25/24 at 13:47. Electronically submitted by Akash Patel ([email or web address]). MARIAM MAGANA MD Dec 25, 2024 11:11
--- NOTE | 2024-12-25 13:39 | DVH ---
Left lower extremity venous duplex Clinical History: dvt Comparison: RWRI on DOS: 01/17/22 Technique: Duplex Doppler evaluation of the deep venous system of the left lower extremity from the common femor al vein to the popliteal vein including color Doppler and spectral/pulsed waveform analysis was perfo rmed. Findings: The common femoral vein demonstrates appropriate compressibility and waveform variability. There is compressibility/patency of the great saphenous vein at the proximal thigh. The femoral vein demonstrates appropriate compressibility and waveform variability. The deep femoral vein demonstrates appropriate compressibility and waveform variability. The popliteal vein demonstrates appropriate compressibility and waveform variability. There is normal compressibility at the tibioperoneal trunk. Impression: No left femoropopliteal venous thrombosis.
[2024-12-25] MEDS ORDERED: CEFD300C2 PO (14:36)
--- NOTE | 2024-12-25 15:26 | DVH ---
CLINICAL INDICATION: Soft tissue leg for foreign body possibly glass TECHNIQUE: 2 radiographic views of the left tibia and fibula were obtained. Comparison: None FINDINGS/IMPRESSION: There is no evidence of acute fracture or dislocation. The visualized joint space is well maintained. The alignment is anatomical. Questionable foreign body in the medial soft tissues of the distal tibia. Correlate clinically
[2024-12-25] MEDS ORDERED: NAPR-957 PO (16:20)
[2024-12-25 16:30] VITALS: BP 122/64; TEMP 98
[2024-12-25] MEDS: HYDROcodone-ACET 5/325MG TAB ONE (16:33)
[2024-12-25] MEDS: HYDROcodone-ACET 5/325MG TAB PO ONE (16:33)
[2024-12-25 16:34] VITALS: PULSE 89; RESP 19; O2SAT 96
== END 2024-12-25 16:40 | disposition home or self-care (01) ==
LOC: ER 10:03
DX: T81.49XA Infection following a procedure, other surgical site, initial encounter (principal); E11.9 Type 2 diabetes mellitus without complications; I10 Essential (primary) hypertension; J44.9 Chronic obstructive pulmonary disease, unspecified; Z79.899 Other long term (current) drug therapy; Z86.73 Personal history of transient ischemic attack (TIA), and cerebral infarction without residual deficits; Z88.0 Allergy status to penicillin; Z88.5 Allergy status to narcotic agent; Z90.49 Acquired absence of other specified parts of digestive tract; Z90.710 Acquired absence of both cervix and uterus
CPT/HCPCS: 73590; 93971

== ENCOUNTER 2025-01-29 05:41 | Outpatient (CLI) | payer OTHER ==
[~2025-01-29 05:41] MED LIST changes: +CEFD300C2 PO; +NAPR-957 PO
== END 2025-01-29 17:00 | disposition home or self-care (01) ==
LOC: LAB 05:41
PROVIDERS: ATTEND Internal Medicine
DX: N39.0 Urinary tract infection, site not specified (principal)
CPT/HCPCS: 87086

== ENCOUNTER 2025-03-17 11:37 | Outpatient (CLI) | payer OTHER ==
[2025-03-17 11:57] LABS: Hematocrit 53.0 % (36.0-46.0); Hemoglobin 18.2 g/dL (12.2-16.2); Mean Corpuscular Hemoglobin 30.1 pg (28.0-32.0); Mean Corpuscular Volume 87.8 fL (80.0-100.0); Nucleated Red Blood Cells % 0.4 %
[2025-03-17 12:02] LABS: Urine Budding Yeast OCCASIONAL /hpf (None Seen); Urine Protein, UAD TRACE (Negative)
[2025-03-17 12:29] LABS: Alanine Aminotransferase 15 U/L (7-40); Albumin 4.6 g/dL (3.2-4.8); Alkaline Phosphatase 99 U/L (46-116); BUN/Creatinine Ratio 8.6 (10.0-20.0); Calcium 9.1 mg/dL (8.7-10.4); Carbon Dioxide 26 mmol/L (20-31); Glucose 87 mg/dL (74-106); Lipase 30 U/L (12-53); Total Protein 6.9 g/dL (5.7-8.2)
[2025-03-17 12:30] LABS: Bilirubin, Total 0.5 mg/dL (0.2-1.0)
[2025-03-17 12:34] LABS: Blood Urea Nitrogen 5 mg/dL (9-23)
[2025-03-17 12:36] LABS: Anion Gap 9 (5-15); Chloride 105 mmol/L (98-107); Potassium 4.0 mmol/L (3.5-5.1); Sodium 140 mmol/L (136-145)
== END 2025-03-17 17:00 | disposition home or self-care (01) ==
LOC: LAB 11:37
PROVIDERS: ATTEND Internal Medicine
DX: E11.21 Type 2 diabetes mellitus with diabetic nephropathy (principal); K00.9 Disorder of tooth development, unspecified; R19.7 Diarrhea, unspecified
CPT/HCPCS: 36415; 80053; 81001; 83690; 85025

== ENCOUNTER → 2025-03-21 | Outpatient (CLI) | payer OTHER | END | disposition home or self-care (01) | LOC: LAB 11:49 | PROVIDERS: ATTEND Internal Medicine | DX: N39.0 Urinary tract infection, site not specified (principal) | CPT/HCPCS: 87086 ==

== ENCOUNTER 2025-06-16 08:13 | Outpatient (CLI) | payer OTHER ==
[2025-06-16 09:58] LABS: Cholesterol 207 mg/dL (< 200); HDL Cholesterol 85 mg/dL (40-59)
[2025-06-16 10:31] LABS: Triglycerides 135 mg/dL (< 150)
== END 2025-06-16 17:00 | disposition home or self-care (01) ==
LOC: LAB 08:13
PROVIDERS: ATTEND Internal Medicine
DX: E11.9 Type 2 diabetes mellitus without complications (principal)
CPT/HCPCS: 36415; 80061; 82607; 83036; 84443